=== PATIENT | male | born 1975 | race Caucasian/White ===

== ENCOUNTER 2016-09-04 19:30 | Inpatient (IN) ==
[2016-09-04 19:40] VITALS: BMI 43.2
[2016-09-04] MEDS ORDERED: XOPENEX 1.25 MG NEB STA (19:51)
[2016-09-04] MEDS ORDERED: DUONEB NEB STA (19:51)
[2016-09-04] MEDS ORDERED: DECADRON 4 MG/ML SDV IM STA (19:51)
[2016-09-04 20:06] LABS: BASOPHILS % (AUTO) 0.1 % (0.0-3.0); HEMATOCRIT 38.3 % (42.0-52.0); HEMOGLOBIN 13.4 g/dl (14.0-18.0); IMMATURE GRANULOCYTE % (AUTO) 0.6 % (0.0-5.0); LYMPHOCYTES # (AUTO) 2.1 K/uL (0.60-3.4); LYMPHOCYTES % (AUTO) 25.2 (10.0-50.0); MEAN CORPUSCULAR HEMOGLOBIN 30.5 pg (27.0-31.0); MEAN CORPUSCULAR VOLUME 87.2 fl (80.0-94.0); MONOCYTES # (AUTO) 0.7 K/uL (0.4-2.0); MONOCYTES % (AUTO) 8.1 (0-10); NEUTROPHILS # (AUTO) 5.5 K/ul (2.0-6.9); PLATELET COUNT 179 10^3/uL (140-440); RED BLOOD COUNT 4.39 10^6/ul (4.70-6.10); WHITE BLOOD COUNT 8.28 K/ul (4.2-10.2)
[2016-09-04 20:17] LABS: ABG BASE EXCESS 0 (-2.0-2.0); ABG HCO3 23.3 (22.0-26.0); ABG PCO2 30.3 mmHg (35-45); ABG PH 7.494 (7.35-7.45); ABG TCO2 24 (22.0-28.0)
[2016-09-04 20:21] LABS: FLU INTERNAL QC INTERNAL QC VALID; RAPID FLU A NEGATIVE (NEGATIVE)
[2016-09-04 20:22] LABS: RAPID FLU B NEGATIVE (NEGATIVE)
[2016-09-04 20:23] LABS: ALBUMIN 3.2 g/dL (3.4-5.0); ALBUMIN/GLOBULIN RATIO 0.78; ANION GAP 14.7; BILIRUBIN,TOTAL 0.72 mg/dL (0.00-1.20); BUN/CREATININE RATIO 6.99; CALCIUM 8.9 mg/dL (8.2-10.2); CREATININE 1.43 mg/dL (0.60-1.10); POTASSIUM 3.7 mmol/L (3.5-5.1); TOTAL PROTEIN 7.3 g/dL (6.4-8.2)
--- NOTE | 2016-09-04 21:00 | CT ---
Exam: CT of the chest without contrast History: Cough Technique: [address] of the chest without intravascular contrast FINDINGS: Lung windows show bilateral multilobar patchy consolidative opacities. There is no pleur al fluid. Mediastinal lymph node abundance with borderline enlargement measuring up to 1 cm short a xis. Trace atherosclerotic calcification of the aorta. No acute findings of the chest wall. No ac fili findings of the upper abdomen. Impression: 1. Bilateral multilobar consolidative opacities favoring multilobar pneumonia. New finding compare d with chest radiograph 08/27/2016.
[2016-09-04] MEDS ORDERED: ROCEPHIN 1 GM in SODIUM CHLORIDE 50 ML IV STA (21:04)
--- NOTE | 2016-09-04 21:08 | ED.PDOC ---
General ED Provider: Dr. HOWARD MOSCOSO-ER Chief Complaint: Shortness of Air Stated Complaint: imi coughing up yellow stuff---i have copd Time Seen by Physician: 19:35 Mode of Arrival: Walk-In Information Source: Patient Exam Limitations: No limitations Nursing and Triage Documentation Reviewed and Agree: Yes Respiratory Complaint Exam - Respiratory Complaint/Exam Onset/Duration: one week Symptoms Are: Still present Timing: Constant Initial Severity: Mild Current Severity: Mild Location: Chest Character: Reports: Productive cough Aggravating: Reports: URI Alleviating: Reports: Bronchodilators Associated Signs and Symptoms: Reports: Fever, URI. Denies: Rapid breathing, Dyspnea, Chills, Chest pain, Pleuritic chest pain, Wheezing, Hemoptysis, Dizziness, Calf pain, Calf swelling, Edema, Nasal congestion, Hoarseness, Sinus discomfort, Vomiting, Sore throat, Weight loss, Decreased oral intake, Increased thirst, Increased appetite, Increased urination History of Healthcare-Acquired Pneumonia: No Pulmonary Embolism Risk Factors: None Pseudomonas Risk Factors: Reports: Chronic Lung Disease Tuberculosis Risk Factors: Reports: None Status Asthmaticus Risk Factors: Reports: None Home Oxygen Use: No Recent Stress Test: No Recent Echo/LV Function: No Current Asthma Medication Use: No Respiratory Distress: None Inadequate Respiratory Effort: No Dysphagia Present: No Stridor Present: No JVD Present: No Accessory Muscle Use: No Retractions: Not Present Diminished Breath Sounds: No Sinus Tenderness: None Grunting Respirations: No Kussmaul Respirations: No Differential Diagnoses: COPD Exacerbation, Pneumonia, Bronchitis Non-Traumatic Chest Pain Syncope: EKG Performed Review of Systems - Review Of Systems Constitutional: Reports: Fever Eyes: Reports: No symptoms Ears, Nose, Mouth, Throat: Reports: No symptoms Respiratory: Reports: Cough, Short of air Cardiac: Reports: No symptoms GI: Reports: No symptoms : Reports: No symptoms Musculoskeletal: Reports: No symptoms Skin: Reports: No symptoms Neurological: Reports: No symptoms Endocrine: Reports: No symptoms Hematologic/Lymphatic: Reports: No symptoms All Other Systems: Reviewed and Negative Past Medical History - Past Medical History Endocrine: Reports: Dyslipidemia Cardiovascular: Reports: Hypertension Respiratory: Reports: COPD Hematological: Reports: None Gastrointestinal: Reports: Other (ibs) Genitourinary: Reports: None Neuro/Psych: Reports: Other Musculoskeletal: Reports: Other Cancer: Reports: None Other Pertinent Past Medical History: htn chol copd ibs psych meds - Surgical History General Surgical History: Reports: None - Family History Family History: Reports: Unknown - Social History Smoking Status: Current every day smoker, Light tobacco smoker Hx Substance Use: No Alcohol Screening: None Lives: With family - Immunizations Tetanus Shot up to Date: Yes Physical Exam - Physical Exam Appearance: Well-appearing, No pain distress, Well-nourished Eyes: MAYCO, EOMI, Conjunctiva clear ENT: Ears normal, Nose normal, Oropharynx normal Neck: Supple Respiratory: Crackles, Rhonchi Cardiovascular: RRR, Pulses normal, No rub, No murmur GI/: Soft, Nontender, No masses, Bowel sounds normal, No Organomegaly Musculoskeletal: Normal strength, ROM intact, No edema, No calf tenderness Skin: Warm, Dry, Normal color Neurological: Sensation intact, Motor intact, Reflexes intact, Cranial nerves intact, Alert, Oriented Psychiatric: Affect appropriate Interpretation - Radiology Interpretation Radiology Interpretation By: Radiologist Radiology Results: Positive Exam Interpreted: CT Scan - EKG Interpretation Time of EKG #1: 21:09 Rate: Tachy Rhythm: Sinus Ectopy: None [place]: NL ST Segment: Normal Physician Notification - Case Discussed Physician Notified: dr [email or web address] Time of Notification: 21:09 Critical Care Note - Critical Care Note Total Time (mins): 0 Course - Course Hematology/Chemistry: 09/04/16 20:00 09/04/16 20:00 Orders, Labs, Meds: Lab Review 09/04/16 09/04/16 09/04/16 19:50 19:53 20:00 WBC 8.28 RBC 4.39 L Hgb 13.4 L Hct 38.3 L MCV 87.2 MCH 30.5 MCHC 35.0 RDW Coeff of Angelita 12.2 Plt Count 179 Immature Gran % (Auto) 0.6 Neut % (Auto) 66.0 Lymph % (Auto) 25.2 [place] % (Auto) 8.1 Eos % (Auto) 0.0 Baso % (Auto) 0.1 Immature Gran # (Auto) 0.1 Neut # 5.5 Lymph # 2.1 [place] # 0.7 Eos # 0.0 Baso # 0.0 D-Dimer 1.31 Puncture Site Lb O2 Saturation 93.0 L ABG pH 7.494 H ABG pCO2 30.3 L ABG pO2 61.0 L ABG HCO3 23.3 ABG Total CO2 24 ABG Base Excess 0 Jaspal Test + FiO2 % 21.0 Sodium 132 L Potassium 3.7 Chloride 98 Carbon Dioxide 23 Anion Gap 14.7 BUN 10 Creatinine 1.43 H Estimated GFR (MDRD) 55.00 BUN/Creatinine Ratio 6.99 Glucose 101 H Calcium 8.9 Total Bilirubin 0.72 AST 285 H ALT 60 Alkaline Phosphatase 46 L B-Natriuretic Peptide < 10 Total Protein 7.3 Albumin 3.2 L Globulin 4.1 Albumin/Globulin Ratio 0.78 Influenza A (Rapid) Negative Influenza B (Rapid) Negative Orders Category Date Time Status ABG DRAW REQUEST Stat CARDIO 09/04/16 19:50 Ordered EKG-(ED ONLY) Stat CARDIO 09/04/16 19:50 Ordered NEBULIZER TREATMENT Stat CARDIO 09/04/16 19:51 Ordered IV [ED IV/MEDIPORT/POWERPORT] .ONCE EMERGENCY 09/04/16 21:04 Active ABG Stat LAB 09/04/16 19:50 Completed BLOOD CULTURE Stat LAB 09/04/16 21:03 Ordered BNP [B-TYPE NATRIURETIC PEPTIDE] Stat LAB 09/04/16 20:00 Completed CBC W/ AUTO DIFF Stat LAB 09/04/16 20:00 Completed COMPREHENSIVE METABOLIC PANEL Stat LAB 09/04/16 20:00 Completed D-DIMER Stat LAB 09/04/16 20:00 Completed MOLECULAR GROUP A STREP Stat LAB 09/04/16 19:53 Results RAPID FLU A/B Stat LAB 09/04/16 19:53 Completed STREP SCREEN Stat LAB 09/04/16 19:53 Results 0.9 % Sodium Chloride [Saline Flush] MEDS 09/04/16 21:04 Ordered 1 syr IVF PRN PRN Ceftriaxone Sodium [Rocephin] 1 gm MEDS 09/04/16 21:04 Active 0.9 % Sodium Chloride [Sodium Chloride] 50 ml IV ONCE Dexamethasone 4 mg/ml Inj [Decadron 4 mg/ml Sdv] MEDS 09/04/16 19:51 Discontinued 8 mg IM ONCE STA Ipratropium/Albuterol Neb [Duoneb] MEDS 09/04/16 19:51 Discontinued 1 vial NEB ONCE STA Levalbuterol HCl [Xopenex 1.25 mg] MEDS 09/04/16 19:51 Discontinued 1 vial NEB ONCE STA CT CHEST W/O CONTRAST Stat RADS 09/04/16 19:51 Completed Medications Generic Name Dose Route Start Last Admin Trade Name Freq PRN Reason Stop Dose Admin Ceftriaxone Sodium 1 gm/ 50 mls @ 75 mls/hr 09/04/16 21:04 Sodium Chloride IV 09/04/16 21:43 ONCE STA Sodium Chloride 1 syr 09/04/16 21:04 Saline Flush IVF PRN PRN To flush IV Discontinued Medications Generic Name Dose Route Start Last Admin Trade Name Freq PRN Reason Stop Dose Admin Albuterol/Ipratropium 1 vial 09/04/16 19:51 09/04/16 20:18 Duoneb NEB 09/04/16 19:52 1 vial ONCE STA Administration Dexamethasone Sodium Phosphate 8 mg 09/04/16 19:51 09/04/16 19:56 Decadron 4 Mg/Ml Sdv IM 09/04/16 19:52 8 mg ONCE STA Administration Levalbuterol HCl 1 vial 09/04/16 19:51 09/04/16 20:06 Xopenex 1.25 Mg NEB 09/04/16 19:52 1 vial ONCE STA Administration Vital Signs: Temp Pulse Resp BP Pulse Ox 09/04/16 19:30 99.7 F H 119 H 22 102/63 90 L Departure - Departure Time of Disposition: 21:09 Disposition: ADMITTED INPATIENT Discharge Problem: Pneumonia Qualifiers: Pneumonia type: due to unspecified organism Laterality: bilateral Lung location : unspecified part of lung Qualifier Code: (J18.9) Pneumonia, unspecified organism Instructions: Community Acquired Pneumonia (ED) Condition: Fair Pt referred to PMD for follow-up: Yes Allergies/Adverse Reactions: Allergies No Known Allergies Allergy (Verified 09/04/16 19:36) Home Medications: Ambulatory Orders Aspirin [Aspirin EC] 81 mg PO DAILYWM 02/08/14 Trazodone HCl 50 mg PO BEDTIME 02/08/14 Docusate Sodium [Doc-Q-Lace] 100 mg PO BID 02/13/14 Multi Vitamin Daily 1 each PO DAILY 05/01/15 Vitamin B Complex [B Complex] 1 each PO DAILY 05/01/15 Atarax 25 mg PO BID #60 02/05/16 Cogentin 1 mg PO BID #60 02/05/16 Trazodone HCl 100 mg PO BEDTIME #30 02/05/16 Escitalopram Oxalate [Lexapro] 10 mg PO BEDTIME #30 07/22/16 Haloperidol 5 mg PO BEDTIME #30 16 Paliperidone [Invega] 6 mg PO DAILY #60 07/22/16 Disposition Discussed With: Patient, Family
[2016-09-04] MEDS ORDERED: TYLENOL PO PRN (21:10)
[2016-09-04] MEDS ORDERED: ROCEPHIN ONE (21:19)
[2016-09-04] MEDS: SODIUM CHLORIDE 1,000 ML IV SCH (21:27)
[2016-09-04] MEDS ORDERED: DESYREL PO STA (23:01)
[2016-09-04] MEDS ORDERED: CRESTOR PO STA (23:05)
[2016-09-04] MEDS ORDERED: LEXAPRO PO STA (23:06)
[2016-09-04] MEDS ORDERED: ZANTAC PO STA (23:07)
[2016-09-04] MEDS ORDERED: ATARAX PO STA (23:08)
[2016-09-04] MEDS ORDERED: COGENTIN PO STA (23:08)
[2016-09-04] MEDS ORDERED: HALDOL PO STA (23:09)
[2016-09-04] MEDS ORDERED: ALBUTEROL 0.083% NEB NEB PRN (23:23)
[2016-09-05] MEDS ORDERED: DUONEB NEB SCH
[2016-09-05] MEDS: DUONEB NEB SCH ×6 (02:14→22:35)
[2016-09-05 06:39] LABS: BASOPHILS % (AUTO) 0.2 % (0.0-3.0); HEMATOCRIT 37.4 % (42.0-52.0); HEMOGLOBIN 12.9 g/dl (14.0-18.0); IMMATURE GRANULOCYTE % (AUTO) 0.9 % (0.0-5.0); LYMPHOCYTES # (AUTO) 1.3 K/uL (0.60-3.4); LYMPHOCYTES % (AUTO) 22.3 (10.0-50.0); MEAN CORPUSCULAR HEMOGLOBIN 29.9 pg (27.0-31.0); MEAN CORPUSCULAR HGB CONC 34.5 (31.8-35.4); MEAN CORPUSCULAR VOLUME 86.8 fl (80.0-94.0); MONOCYTES # (AUTO) 0.2 K/uL (0.4-2.0); NEUTROPHILS # (AUTO) 4.2 K/ul (2.0-6.9); NEUTROPHILS % (AUTO) 72.6; PLATELET COUNT 172 10^3/uL (140-440); RED BLOOD COUNT 4.31 10^6/ul (4.70-6.10); WHITE BLOOD COUNT 5.79 K/ul (4.2-10.2)
[2016-09-05 06:59] LABS: ALBUMIN/GLOBULIN RATIO 0.71; ANION GAP 15.6; BILIRUBIN,TOTAL 0.61 mg/dL (0.00-1.20); BUN/CREATININE RATIO 10.92; CREATININE 1.19 mg/dL (0.60-1.10); POTASSIUM 3.6 mmol/L (3.5-5.1); TOTAL PROTEIN 7.2 g/dL (6.4-8.2)
[2016-09-05] MEDS: ASPIRIN EC PO SCH (08:55)
[2016-09-05] MEDS ORDERED: BENICAR PO ONE (09:00)
[2016-09-05] MEDS ORDERED: ATARAX 25 MG PO SCH (09:00)
[2016-09-05] MEDS ORDERED: NON-FORMULARY MEDICATION (Ranitidine Hcl [Zantac] 300 MG) PO SCH ×22 (09:00)
[2016-09-05] MEDS ORDERED: MULTI VITAMIN DAILY PO SCH (09:00)
[2016-09-05] MEDS ORDERED: COGENTIN 1 MG PO SCH (09:00)
[2016-09-05] MEDS: MULTIVITAMIN PO SCH (09:32)
[2016-09-05] MEDS: BALANCED B-100 PO SCH (09:33)
[2016-09-05] MEDS: ATARAX PO SCH ×2 (09:33→21:51)
[2016-09-05] MEDS: COGENTIN PO SCH ×2 (09:33→21:48)
[2016-09-05] MEDS: COLACE PO SCH ×2 (09:33→21:47)
[2016-09-05] MEDS: SINGULAIR PO SCH (09:33)
[2016-09-05] MEDS: LOVENOX SUBCUT SCH (09:34)
[2016-09-05] MEDS: MIRALAX PO SCH (09:34)
[2016-09-05] MEDS: PALIPERIDONE 6 MG PO SCH (09:35)
[2016-09-05] MEDS: ZITHROMAX 500 MG in SODIUM CHLORIDE 250 ML IV SCH (09:41)
[2016-09-05] MEDS: OLMESARTAN MEDOXOMIL 5 MG PO SCH (09:42)
[2016-09-05] MEDS: FLONASE NAS SCH (09:46)
[2016-09-05] MEDS: SYMBICORT 160-4.5 MCG INHALER IH SCH ×2 (09:47→21:43)
[2016-09-05] MEDS: ZANTAC PO SCH ×2 (09:48→21:49)
[2016-09-05] MEDS: SOLU-MEDROL 40 MG IVP SCH ×2 (09:55→21:44)
[2016-09-05] MEDS: SODIUM CHLORIDE 1,000 ML IV SCH ×2 (19:02→19:03)
[2016-09-05] MEDS ORDERED: HALOPERIDOL 5 MG PO SCH ×2 (21:00)
[2016-09-05] MEDS ORDERED: [UNRECOGNIZED DRUG - OTHER] PO SCH ×22 (21:00)
[2016-09-05] MEDS ORDERED: NON-FORMULARY MEDICATION (Trazodone Hcl [Trazodone Hcl] 100 MG) PO SCH ×22 (21:00)
[2016-09-05] MEDS ORDERED: FATTY ACIDS PO SCH ×22 (21:00)
[2016-09-05] MEDS ORDERED: NON-FORMULARY MEDICATION (Trazodone Hcl [Trazodone Hcl] 50 MG) PO SCH ×22 (21:00)
[2016-09-05] MEDS ORDERED: NON-FORMULARY MEDICATION (Rosuvastatin Calcium [Crestor] 20 MG) PO SCH ×22 (21:00)
[2016-09-05] MEDS ORDERED: HALDOL PO SCH (21:00)
[2016-09-05] MEDS ORDERED: FISH OIL PO SCH ×22 (21:00)
[2016-09-05] MEDS ORDERED: OMEGA PO SCH ×22 (21:00)
[2016-09-05] MEDS: CRESTOR PO SCH (21:46)
[2016-09-05] MEDS: DESYREL PO SCH (21:47)
[2016-09-05] MEDS: LEXAPRO PO SCH (21:49)
[2016-09-05] MEDS: ROCEPHIN 1 GM in SODIUM CHLORIDE 50 ML IV SCH (21:55)
[2016-09-06] MEDS: DUONEB NEB SCH ×6 (02:38→21:07)
[2016-09-06 04:45] LABS: HEMATOCRIT 38.2 % (42.0-52.0); HEMOGLOBIN 13.3 g/dl (14.0-18.0); MEAN CORPUSCULAR HEMOGLOBIN 30.2 pg (27.0-31.0); MEAN CORPUSCULAR HGB CONC 34.8 (31.8-35.4); MEAN CORPUSCULAR VOLUME 86.6 fl (80.0-94.0); PLATELET COUNT 215 10^3/uL (140-440); RED BLOOD COUNT 4.41 10^6/ul (4.70-6.10); WHITE BLOOD COUNT 11.45 K/ul (4.2-10.2)
[2016-09-06 05:07] LABS: ANISOCYTOSIS NOT PRESENT (NOT PRESENT)
[2016-09-06 05:09] LABS: ALBUMIN 3.1 g/dL (3.4-5.0); ALBUMIN/GLOBULIN RATIO 0.67; BILIRUBIN,TOTAL 0.4 mg/dL (0.00-1.20); BUN/CREATININE RATIO 14.73; CALCIUM 9.6 mg/dL (8.2-10.2); CREATININE 0.95 mg/dL (0.60-1.10); TOTAL PROTEIN 7.7 g/dL (6.4-8.2)
[2016-09-06] MEDS: ZITHROMAX 500 MG in SODIUM CHLORIDE 250 ML IV SCH (08:44)
[2016-09-06] MEDS: SYMBICORT 160-4.5 MCG INHALER IH SCH ×2 (08:44→20:49)
[2016-09-06] MEDS: MIRALAX PO SCH (08:45)
[2016-09-06] MEDS: OMEGA-3 FISH OIL PO SCH ×2 (08:45→20:50)
[2016-09-06] MEDS: LOVENOX SUBCUT SCH (08:46)
[2016-09-06] MEDS: PALIPERIDONE 6 MG PO SCH (08:47)
[2016-09-06] MEDS: ASPIRIN EC PO SCH (08:48)
[2016-09-06] MEDS: OLMESARTAN MEDOXOMIL 5 MG PO SCH (08:48)
[2016-09-06] MEDS: SINGULAIR PO SCH (08:49)
[2016-09-06] MEDS: COGENTIN PO SCH ×2 (08:50→20:50)
[2016-09-06] MEDS: MULTIVITAMIN PO SCH (08:50)
[2016-09-06] MEDS: BALANCED B-100 PO SCH (08:51)
[2016-09-06] MEDS: COLACE PO SCH ×2 (08:51→20:50)
[2016-09-06] MEDS: ZANTAC PO SCH ×2 (08:52→20:50)
[2016-09-06] MEDS: ATARAX PO SCH ×2 (08:53→20:51)
[2016-09-06] MEDS: FLONASE NAS SCH (08:55)
[2016-09-06] MEDS: SOLU-MEDROL 40 MG IVP SCH ×2 (09:24→20:50)
[2016-09-06] MEDS: TUSSIONEX PO SCH ×2 (10:31→20:53)
[2016-09-06] MEDS: SODIUM CHLORIDE 1,000 ML IV SCH (17:09)
[2016-09-06] MEDS: HALOPERIDOL 5 MG PO SCH (20:49)
[2016-09-06] MEDS: ROCEPHIN 1 GM in SODIUM CHLORIDE 50 ML IV SCH (20:49)
[2016-09-06] MEDS: DESYREL PO SCH (20:50)
[2016-09-06] MEDS: LEXAPRO PO SCH (20:50)
[2016-09-06] MEDS: CRESTOR PO SCH (20:50)
[2016-09-07] MEDS: DUONEB NEB SCH ×5 (01:14→17:38)
[2016-09-07 04:50] LABS: HEMATOCRIT 34.5 % (42.0-52.0); MEAN CORPUSCULAR HEMOGLOBIN 30.4 pg (27.0-31.0); MEAN CORPUSCULAR HGB CONC 34.8 (31.8-35.4); MEAN CORPUSCULAR VOLUME 87.3 fl (80.0-94.0); PLATELET COUNT 226 10^3/uL (140-440); RED BLOOD COUNT 3.95 10^6/ul (4.70-6.10); WHITE BLOOD COUNT 11.46 K/ul (4.2-10.2)
[2016-09-07 05:04] LABS: ANISOCYTOSIS NOT PRESENT (NOT PRESENT)
[2016-09-07 05:11] LABS: ALBUMIN/GLOBULIN RATIO 0.77; ANION GAP 15.2; BILIRUBIN,TOTAL 0.29 mg/dL (0.00-1.20); BUN/CREATININE RATIO 13.48; CREATININE 0.89 mg/dL (0.60-1.10); POTASSIUM 4.2 mmol/L (3.5-5.1); TOTAL PROTEIN 6.9 g/dL (6.4-8.2)
[2016-09-07] MEDS: ASPIRIN EC PO SCH (07:59)
[2016-09-07] MEDS: SYMBICORT 160-4.5 MCG INHALER IH SCH ×2 (08:00→20:44)
[2016-09-07] MEDS: BALANCED B-100 PO SCH (08:00)
[2016-09-07] MEDS: FLONASE NAS SCH (08:00)
[2016-09-07] MEDS: COLACE PO SCH ×2 (08:00→20:46)
[2016-09-07] MEDS: TUSSIONEX PO SCH ×2 (08:00→20:47)
[2016-09-07] MEDS: ZANTAC PO SCH ×2 (08:00→20:46)
[2016-09-07] MEDS: MULTIVITAMIN PO SCH (08:01)
[2016-09-07] MEDS: COGENTIN PO SCH ×2 (08:01→20:45)
[2016-09-07] MEDS: ZITHROMAX 500 MG in SODIUM CHLORIDE 250 ML IV SCH (08:01)
[2016-09-07] MEDS: OMEGA-3 FISH OIL PO SCH ×2 (08:01→20:47)
[2016-09-07] MEDS: LOVENOX SUBCUT SCH (08:01)
[2016-09-07] MEDS: ATARAX PO SCH ×2 (08:01→20:47)
[2016-09-07] MEDS: MIRALAX PO SCH (08:01)
[2016-09-07] MEDS: SINGULAIR PO SCH (08:01)
[2016-09-07] MEDS: PALIPERIDONE 12 MG PO SCH (08:02)
[2016-09-07] MEDS: OLMESARTAN MEDOXOMIL 5 MG PO SCH (08:03)
[2016-09-07] MEDS: SOLU-MEDROL 40 MG IVP SCH ×2 (08:49→20:45)
[2016-09-07] MEDS ORDERED: ALBUTEROL 0.042% NEB NEB SCH (12:00)
[2016-09-07] MEDS: SODIUM CHLORIDE 1,000 ML IV SCH (14:54)
[2016-09-07] MEDS: HALOPERIDOL 5 MG PO SCH (20:45)
[2016-09-07] MEDS: DESYREL PO SCH (20:46)
[2016-09-07] MEDS: CRESTOR PO SCH (20:47)
[2016-09-07] MEDS: LEXAPRO PO SCH (20:50)
[2016-09-07] MEDS: ROCEPHIN 1 GM in SODIUM CHLORIDE 50 ML IV SCH (20:50)
[2016-09-08] MEDS: DUONEB NEB SCH ×5 (01:06→23:14)
[2016-09-08 05:24] LABS: HEMATOCRIT 36.7 % (42.0-52.0); HEMOGLOBIN 12.7 g/dl (14.0-18.0); MEAN CORPUSCULAR HEMOGLOBIN 30.5 pg (27.0-31.0); MEAN CORPUSCULAR HGB CONC 34.6 (31.8-35.4); MEAN CORPUSCULAR VOLUME 88.2 fl (80.0-94.0); PLATELET COUNT 266 10^3/uL (140-440); RED BLOOD COUNT 4.16 10^6/ul (4.70-6.10); WHITE BLOOD COUNT 9.35 K/ul (4.2-10.2)
[2016-09-08 05:57] LABS: ALBUMIN 3.2 g/dL (3.4-5.0); ALBUMIN/GLOBULIN RATIO 0.78; ANION GAP 12.8; BILIRUBIN,TOTAL 0.35 mg/dL (0.00-1.20); BUN/CREATININE RATIO 12.04; CALCIUM 9.5 mg/dL (8.2-10.2); CREATININE 0.83 mg/dL (0.60-1.10); POTASSIUM 4.8 mmol/L (3.5-5.1); TOTAL PROTEIN 7.3 g/dL (6.4-8.2)
[2016-09-08 06:00] LABS: ANISOCYTOSIS NOT PRESENT (NOT PRESENT)
[2016-09-08] MEDS: ATARAX PO SCH ×2 (08:55→20:35)
[2016-09-08] MEDS: BALANCED B-100 PO SCH (08:55)
[2016-09-08] MEDS: ASPIRIN EC PO SCH (08:55)
[2016-09-08] MEDS: FLONASE NAS SCH (08:56)
[2016-09-08] MEDS: LOVENOX SUBCUT SCH (08:56)
[2016-09-08] MEDS: COLACE PO SCH ×2 (08:56→20:33)
[2016-09-08] MEDS: COGENTIN PO SCH ×2 (08:56→20:32)
[2016-09-08] MEDS: MIRALAX PO SCH (08:57)
[2016-09-08] MEDS: OLMESARTAN MEDOXOMIL 5 MG PO SCH (08:57)
[2016-09-08] MEDS: OMEGA-3 FISH OIL PO SCH ×2 (08:57→20:31)
[2016-09-08] MEDS: MULTIVITAMIN PO SCH (08:57)
[2016-09-08] MEDS: SOLU-MEDROL 40 MG IVP SCH ×2 (08:58→20:37)
[2016-09-08] MEDS: ZANTAC PO SCH ×2 (08:58→20:32)
[2016-09-08] MEDS: SINGULAIR PO SCH (08:58)
[2016-09-08] MEDS: SYMBICORT 160-4.5 MCG INHALER IH SCH ×2 (09:37→20:31)
[2016-09-08] MEDS: PALIPERIDONE 12 MG PO SCH (09:37)
[2016-09-08] MEDS: ZITHROMAX 500 MG in SODIUM CHLORIDE 250 ML IV SCH (09:38)
[2016-09-08] MEDS: TUSSIONEX PO SCH ×2 (09:38→20:36)
[2016-09-08] MEDS: SODIUM CHLORIDE 1,000 ML IV SCH (11:00)
[2016-09-08] MEDS: LEXAPRO PO SCH (20:33)
[2016-09-08] MEDS: CRESTOR PO SCH (20:34)
[2016-09-08] MEDS: DESYREL PO SCH (20:34)
[2016-09-08] MEDS: HALOPERIDOL 5 MG PO SCH (20:36)
[2016-09-08] MEDS: ROCEPHIN 1 GM in SODIUM CHLORIDE 50 ML IV SCH (20:44)
[2016-09-09] MEDS: DUONEB NEB SCH ×2 (05:19→11:25)
[2016-09-09 06:19] LABS: BASOPHILS % (AUTO) 0.4 % (0.0-3.0); HEMATOCRIT 35.4 % (42.0-52.0); HEMOGLOBIN 12.1 g/dl (14.0-18.0); IMMATURE GRANULOCYTE % (AUTO) 1.4 % (0.0-5.0); LYMPHOCYTES # (AUTO) 2.1 K/uL (0.60-3.4); LYMPHOCYTES % (AUTO) 27.2 (10.0-50.0); MEAN CORPUSCULAR HGB CONC 34.2 (31.8-35.4); MEAN CORPUSCULAR VOLUME 87.6 fl (80.0-94.0); MONOCYTES # (AUTO) 0.3 K/uL (0.4-2.0); MONOCYTES % (AUTO) 4.3 (0-10); NEUTROPHILS # (AUTO) 5.2 K/ul (2.0-6.9); NEUTROPHILS % (AUTO) 66.7; PLATELET COUNT 264 10^3/uL (140-440); RED BLOOD COUNT 4.04 10^6/ul (4.70-6.10); WHITE BLOOD COUNT 7.86 K/ul (4.2-10.2)
[2016-09-09] MEDS: SODIUM CHLORIDE 1,000 ML IV SCH (07:23)
[2016-09-09 07:44] LABS: ALBUMIN 3.1 g/dL (3.4-5.0); ALBUMIN/GLOBULIN RATIO 0.89; ANION GAP 13.2; BILIRUBIN,TOTAL 0.33 mg/dL (0.00-1.20); BUN/CREATININE RATIO 12.04; CALCIUM 8.8 mg/dL (8.2-10.2); CREATININE 0.83 mg/dL (0.60-1.10); POTASSIUM 4.2 mmol/L (3.5-5.1); TOTAL PROTEIN 6.6 g/dL (6.4-8.2)
[2016-09-09] MEDS: OMEGA-3 FISH OIL PO SCH (08:01)
[2016-09-09] MEDS: MULTIVITAMIN PO SCH (08:01)
[2016-09-09] MEDS: ATARAX PO SCH (08:01)
[2016-09-09] MEDS: COGENTIN PO SCH (08:01)
[2016-09-09] MEDS: BALANCED B-100 PO SCH (08:01)
[2016-09-09] MEDS: ASPIRIN EC PO SCH (08:02)
[2016-09-09] MEDS: ZANTAC PO SCH (08:02)
[2016-09-09] MEDS: COLACE PO SCH (08:02)
[2016-09-09] MEDS: SINGULAIR PO SCH (08:02)
[2016-09-09] MEDS: MIRALAX PO SCH (08:03)
[2016-09-09] MEDS: LOVENOX SUBCUT SCH (08:03)
[2016-09-09] MEDS: TUSSIONEX PO SCH (08:03)
[2016-09-09] MEDS: FLONASE NAS SCH (08:03)
[2016-09-09] MEDS: ZITHROMAX 500 MG in SODIUM CHLORIDE 250 ML IV SCH (08:03)
[2016-09-09] MEDS: PALIPERIDONE 12 MG PO SCH (08:04)
[2016-09-09] MEDS: SYMBICORT 160-4.5 MCG INHALER IH SCH (08:05)
[2016-09-09] MEDS: OLMESARTAN MEDOXOMIL 5 MG PO SCH (08:05)
[2016-09-09] MEDS: SOLU-MEDROL 40 MG IVP SCH (09:15)
[2016-09-09 11:04] VITALS: BP 137/92; TEMP 97
--- NOTE | 2016-09-09 11:46 | CT ---
CT thorax without contrast History: Follow-up pneumonia. Comparison: 09/04/2016. TECHNIQUE: Serial axial images were obtained from the thoracic inlet through the diaphragms without IV or oral contrast. Coronal and sagittal reformatted imaging is submitted.. FINDINGS: There is interval improvement in still patchy bilateral multilobar are consolidative opacities. The large airways are patent. No evidence of pleural effusion or pneumothorax. Unchanged is a granulo ma at the left lung apex. Unchanged is a 3 mm with left lower lobe pulmonary nodule on image 48. A lso unchanged of multiple small 4 mm pulmonary nodules within the right upper lobe. These are likel y related to the consolidative process described above. The heart is of normal size without pericardial effusion. Small lymph nodes are again seen within th e mediastinum without evidence of pathologic enlargement. Limited visualization below the diaphragm shows no evidence of acute abnormality. There is evidence of prior granulomatous disease. Osseous and soft tissue structures show no acute abnormality. Impression: Interval significant improvement in still present bilateral patchy multilobar are areas of consolida tion. Findings are suggestive of multilobar pneumonia which is improving. Short-term follow-up is recommended with repeat CT in 6-8 weeks.
--- NOTE | 2016-10-14 08:17 | PN ---
DATE OF VISIT: 09/05/16 SUBJECTIVE: The patient is alert and oriented, not dyspneic or tachypneic and cyanosis. His temperature did spike 101.2 late in the evening of admission. The patient temperature remained normal until 5:12 pm. His pulse was 100, blood pressure 118 /72, respiratory rate 20 and oxygen saturation 91% at 2 liters. This patient is receiving Ceftriaxone 1 gram intervenously daily and Azithromycin 500mg IV daily. He is also receiving Solu-Medrol 40mg IV Q 12 hours. The patient's medications were continued except for Albuterol Sulfate nebulizer compressor, Albuterol Sulfate 2.5/3cc vial and Azithromycin tablet. This patient was given Dexamethasone 8mg MN at the emergency room. He also received DUO NEB nebulizer as well as Xopenex in the emergency room. The patient still has rales in both lung carballo. No significant wheezing. Heart is audible and regular and slightly tachycardiac. His appetite was good he consumed 100% of his meal. CBC remained to have a normal WBC 5,790, hgb and hct below normal, fasting blood sugar 157, AST 289, ALT still normal at 66. The AST in the emergency room was 285. MTDD
--- NOTE | 2016-10-14 08:23 | PN ---
DATE OF VISIT: 09/06/16 SUBJECTIVE: The patient's temperature had remained normal since yesterday and the vital signs at 5:56pm 09/06/16 showed a temperature of 97, pulse 94, blood pressure 127/73, respiratory rate 22 and oxygen saturation 94 at 2 liters and it was 95% before that. Lungs still has rales in both lung carballo but no wheezing. His appetite remained good. WBC did rise to 11,450 and probably secondary to steroid injection. Hgb and hct did rise slightly but still below normal. The fasting blood sugar remained elevated at 142 and the fasting insulin level is 67.1, markedly elevated. The AST is rising and now the ALT is slightly elevated at 97%. Alkaline phosphatase remained normal. The patient showed continued improvement. Rapid strep was negative, blood culture negative. MTDD
--- NOTE | 2016-10-14 08:37 | PN ---
DATE OF VISIT: 09/07/16 SUBJECTIVE: The patient today is alert, oriented and cooperative. He still has dyspnea on exertion. Cough is productive and intermittent. The patient's oximetry was noted on the nurses progress notes at 97% on room air. The patient did have a BM yesterday 09/06/16. His appetite was described as good and his abdomen was soft. The patient's vital signs at 6:00pm 09/07/16 showed a temperature of 97.6. His temperature had remained normal since the following day of admission. His pulse is 89, blood pressure 127/79, respiratory rate 19 and oxygen saturation 93% at room air. It was recorded earlier at 97%. He consumed 100% of meals. Lungs had diminished breath sounds still with rales but less. No wheezing. Heart is audible with good tones no long tachycardiac. Abdomen non- tender. No tenderness in the calf muscles. This patient is receiving Lovenox 40mg SUBCUT daily as prophylaxis. WBC is still elevated slightly 11,460 again probably secondary to steroid. Blood culture remained negative. The AST is still climbing slightly 377 from 375 yesterday. The ALT is now 128 from 97. General appearance is good. Discussion was carried with regards to cessation of smoking and probably pursuing regular exercise. The patient's seemed to be receptive to the idea. The patient had ambulated in the hallway without any difficulties. The shortness of breath with exertion is intermittent and it definitely has improved. MTDD
--- NOTE | 2016-10-14 09:03 | PN ---
DATE OF VISIT: 09/08/16 SUBJECTIVE: The patient today is alert and ambulatory without any distress and no cyanosis. Temperature at 6:00pm 09/08/16 it is recorded at 97.7, pulse 112, blood pressure 128/68, respiratory rate 18 and oxygen saturation 92 at room air. Lungs still has rales but less. The WBC has now returned to normal at 9,350, electrolytes remained normal, blood sugar now normal at 88mg %, AST is down to 332 and ALT is elevated to 152. The patient's rapid A and B were negative. The patient again has consumed 100% of his meals. His oral intake is good. We will obtain another chest CT tomorrow for followup and see if the probably has improved. The patient indeed clinically has improved and he had been afebrile since the second day of hospitalization. JANETT
--- NOTE | 2016-10-14 09:59 | HP ---
DATE OF ADMISSION: 09/04/17 CHIEF COMPLAINT: Shortness of breath with productive cough and purulent sputum. SOURCE OF HISTORY: The patient. HISTORY OF PRESENT ILLNESS: The patient had been experiencing cough and nasal congestion for some time and was given a round of Amoxicillin without any improvement. This patient was then re-prescribed another kind, Zithromax but again without any improvement prompting him to come to the emergency room. The patient was evaluated and was found to have bilateral pneumonic processes. This patient was then admitted. PAST PERSONAL HISTORY: The patient was diagnosis with having a lazy eye on the left side Pneumonia, 2014 on the right side IBS Dyslipidemia Schizophrenia The patient had previous appendectomy Ventilation tube insertion Exploratory laparotomy for hematuria FAMILY HISTORY: Brother is hypertensive Father Pulmonary fibrosis and liver cirrhosis Mother had hypertension, diabetes mellitus, CVA as well as depression SOCIAL HISTORY: The patient is single and smokes about one and a half packs of cigarettes per day. Denies any alcohol use or drug abuse. MEDICATIONS: Aspirin 81mg daily Trazodone 50mg at bedtime Colace 100mg twice a day Benicar 5mg PO daily Vitamin C complex one daily Multivitamin one daily Albuterol sulfate one puff 3-4 times a day Flonase two sprays to each nostril daily Singulair 10mg daily Cogentin 1 mg twice a day Atarax 25mg twice a day Trazodone 100mg at bedtime Zantac 300mg PO twice a day Miralax 17gm daily Nebulizer/ compressor Q 4-6 hours PRN Symbicort 160-4.5 two puffs twice a day [place] 3 fatty acids one twice a day Invega 6mg two tablets daily Lexapro 10mg at bedtime Albuterol Sulfate 2.5mg per 3cc for Nebulizing 4-6 hours PRN Crestor 20mg daily Azithromycin 250mg daily Haldol 5mg at bedtime ALLERGIES: No known drug allergies. REVIEW OF SYSTEMS: CONSTITUTIONAL: The patient claimed to have had fever, no chills and some fatigue. 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 VISUAL: Denies any Diplopia or blurred vision or transient loss of vision AUDITORY: No ringing, No pain, no drainage and no loss of hearing. RESPIRATORY: The patient has shortness of breath, productive cough with purulent sputum CARDIOVASCULAR: Denies any chest pain or chest tightness. GASTROINTESTINAL: The patient's appetite has decreased but no nausea or anorexia abdominal pain. He also denies any dysphagia. GENITOURINARY: Denies any pain frequency or urgency or urination. MUSCULOSKELETAL: No significant joint pain or muscular pains. ENDOCRINE: No polyuria or polydipsia INTEGUMENT: Denies any pleuritis or any rash. HEMATOLOGIC: No easy bruising and no history of prolonged bleeding. PSYCHIATRIC: The patient's affect appears to be ok but has some psychiatric problems including schizophrenia. He is on multiple medications. PHYSICAL EXAMINATION: GENERAL: The patient is a 41 year old male admitted to the hospital because of shortness of breath with productive purulent sputum and bilateral pneumonia per CT chest. VITAL SIGNS: Temperature 99.7 in the emergency room, pulse 119, blood pressure 103/63, respiratory rate 22 and oxygen saturation 90%. HEAD: Unremarkable FACE: Symmetrical and equal with no facial weakness. No remarkable tenderness to palpation in the frontal maxillary sinus areas. EYES: Pupils equal/reactive to light. Conjunctivae not pale. Sclerae not icteric. MOUTH: Unremarkable THROAT: No inflammation, tumors or exudate. NECK: No masses. No bruit. No tenderness. No rigidity. CHEST: Symmetrical and equal with good expansion with no remarkable tenderness to palpation and percussion. LUNGS: Breath sounds are heard in both sides, with no rales in both lung carballo. HEART: Audible and regular with good tones. Slightly tachycardiac. No murmurs. ABDOMEN: Protuberant, soft with no remarkable tenderness, bowel sounds are active. LOWER EXTREMITIES: Symmetrical equal with ankle and leg edema UPPER EXTREMITIES: Symmetrical and equal ASSESSMENT: 1. Bilateral pneumonitis 2. Elevated BMI 43+ 3. History of IBS 4. History of dyslipidemia 5. History of schizophrenia 6. History of hematuria 7. History of chronic tobacco use and abuse, persistent. MTDD
--- NOTE | 2016-10-14 10:20 | DS ---
DATE OF ADMISSION: 09/04/17 DATE OF DISCHARGE: 09/09/16 PATIENT IDENTIFICATION: The patient is a 41 year old white who was admitted at the hospital by the emergency room because cough, purulent sputum, fever and bilateral pneumonia by x-ray and rales in both lung carballo by physical examination. HOSPITAL COURSE: The patient's oxygen saturation was slow at 90% on admission and his atrial blood gasses 21 FiO2 showed an oxygen saturation of 93%, pH 7.494, pCO2 30.3 low , pO2 61, bicarbonate 23.3, total CO2 24. The excess is zero. The patient's initial GFR was 55 and the creatinine 1.43 with BUN of 10. The BUN had remained about the same but the GFR was improving and the day before discharge the EGFR was 103 with creatinine 0.83 and BUN 10. The blood sugar had returned to normal towards to the day before discharge. The AST and ALT were increasing but was declining towards the day of discharge for the AST but not the ALT. The alkaline phosphatase remained normal as well as the total bilirubin. The TSH was normal. The patient's problem continued to improve and remained afebrile beginning with the second day and his blood pressure more or less normalized and remained normal. His respiratory rate also was decreased and his exertion dyspnea has improved. This patient was continued on the Zithromax as well as the Rocephin and the rest of his medication except for what was mentioned initially being withheld. The patient on the day of discharge was alert, ambulatory with no pain in both lower extremities. His vital signs at 10:00 in the morning 09/09/16 recorded a temperature of 97, pulse 98, blood pressure 137/ 92, respiratory rate 20 and oxygen saturation 95%. Not sure wither the oxygen was involved although they had noted at 2 liters but previous to that this patient had not been using any oxygen. The repeat CT chest done 09/09/16 compared to 09/04/16 showed interval significant improvement on the bilateral pneumonia. LUNGS: Still has some rales but much less and no wheezing HEART: Audible with good tones FINAL DIAGNOSES: 1. Multilobar pneumonia, improving 2. Hepatitis, etiology undetermined 3. Markedly elevated BMI 43+ 4. History of schizophrenia 5. History of IBS 6. History of dyslipidemia 7. History of pneumonia, 2014 right 8. Chronic tobacco use and abuse persistent 1 1/2 packs of cigarettes per day PLAN: 1. Short-term followup is recommended 2. Repeat CT in 6-8 weeks 3. The patient was instructed to continue his previous medications. 4. He is given a new prescription Omnicef 300mg capsule every 12 hours as a continuation of the Rocephin. 5. The patient had received Zithromax during this admission. 6. The patient was instructed to followup with the [facility] in 5- 7 days and call for an appointment. 7. The patient may resume regular diet. 8. He was further instructed to discontinue the antibiotic if he has more than 3 bowel movements in one day. 9. He may return to the emergency room if he has exacerbation or recurrence of the shortness of breath. PROGNOSIS: Guarded MTDD
== END 2016-09-09 13:46 | disposition home or self-care (01) | DRG 194 ==
LOC: ED 19:30 → MEDSURG B 21:10
PROVIDERS: ADMIT General Practice; ATTEND General Practice
DX: J18.9 Pneumonia, unspecified organism (principal); B17.9 Acute viral hepatitis, unspecified; Z68.41 Body mass index [BMI] 40.0-44.9, adult; R06.02 Shortness of breath; I10 Essential (primary) hypertension; R50.9 Fever, unspecified; F17.210 Nicotine dependence, cigarettes, uncomplicated; R63.8 Other symptoms and signs concerning food and fluid intake; F20.9 Schizophrenia, unspecified; K58.9 Irritable bowel syndrome, unspecified; Z79.899 Other long term (current) drug therapy; Z86.19 Personal history of other infectious and parasitic diseases
CPT/HCPCS: 36415; 80053; 82803; 83525; 83880; 84443; 85007; 85025; 85379; 87040; 87651; 87804; 87880; 93005; 93010; 94640; 96374; 99223; 99232; 99239; 99284

== ENCOUNTER 2016-10-15 07:46 | Outpatient (CLI) ==
--- NOTE | 2016-10-15 08:33 | US ---
EXAM: Ultrasound abdomen limited right upper quadrant HISTORY: Fatty change of liver, not elsewhere classified COMPARISON: 06/15/2020 thickening TECHNIQUE: Limited ultrasound abdomen right upper quadrant was performed FINDINGS: Pancreas is poorly visualized secondary to bowel gas shadowing. Liver normal in size. Li lauro diffusely increased in echogenicity, consistent with hepatic steatosis, with focal fatty sparing near the gallbladder fossa. Main portal vein patent with normal direction of flow. Gallbladder fl uid-filled without gallbladder wall thickening, pericholecystic fluid, or shadowing gallstones. No biliary duct dilation with the common bile duct measuring 0.2 cm. Right kidney measures 9.2 cm in l ength without hydronephrosis. IMPRESSION: 1. Hepatic steatosis. 2. No cholelithiasis or cholecystitis
[2016-10-15 09:06] LABS: ALBUMIN 3.8 g/dL (3.4-5.0); ALBUMIN/GLOBULIN RATIO 1.27; ANION GAP 13.5; BILIRUBIN,TOTAL 1.42 mg/dL (0.00-1.20); BUN/CREATININE RATIO 6.31; CALCIUM 9.2 mg/dL (8.2-10.2); CHOL/HDL RATIO 5.6 (4.5-6.4); CREATININE 0.95 mg/dL (0.60-1.10); FERRITIN 184.39 ng/mL (21.81-274.66); POTASSIUM 3.5 mmol/L (3.5-5.1); TOTAL PROTEIN 6.8 g/dL (6.4-8.2)
[2016-10-17 07:30] LABS: GAMMA GLUTAMYL TRANSFERASE 24 IU/L (0-65)
== END 2016-10-15 07:47 | disposition home or self-care (01) ==
LOC: RAD 07:46
PROVIDERS: ATTEND Nurse Practitioner Family
DX: K76.0 Fatty (change of) liver, not elsewhere classified (principal); R94.5 Abnormal results of liver function studies; E78.5 Hyperlipidemia, unspecified; R73.9 Hyperglycemia, unspecified
CPT/HCPCS: 36415; 80053; 80061; 80074; 82607; 82728; 82977; 83036; 83540; 83550; 84443

== ENCOUNTER 2016-10-19 10:51 | Outpatient (CLI) ==
--- NOTE | 2016-10-19 13:43 | CT ---
Examination: Noncontrast helical CT examination of the chest. Comparison: 09/09/2016. Reason for study: Pneumonia. FINDINGS: The previously described patchy ground-glass and airspace opacities are not seen on today 's examination. The heart is not enlarged. No osteolytic or osteoblastic lesions. Old granulomato us disease is seen within the lung parenchyma. These spleen, gallbladder, and adrenal glands are un remarkable. Impression: Resolution of the previously described patchy ground-glass air space opacities. No new acute findings in the chest.
== END 2016-10-19 10:52 | disposition home or self-care (01) ==
LOC: RAD 10:51
PROVIDERS: ATTEND Nurse Practitioner Family
DX: J18.9 Pneumonia, unspecified organism (principal)

== ENCOUNTER 2017-01-21 11:35 | Outpatient (CLI) | payer OTHER | END 2017-01-21 11:36 | disposition home or self-care (01) | LOC: LAB 11:35 | PROVIDERS: ATTEND Nurse Practitioner Family | DX: L02.91 Cutaneous abscess, unspecified (principal); L03.311 Cellulitis of abdominal wall | CPT/HCPCS: 87070 ==

== ENCOUNTER 2017-04-18 07:24 | Outpatient (CLI) ==
[2017-04-18 07:51] LABS: BASOPHILS % (AUTO) 0.5 % (0.0-3.0); EOSINOPHILS # (AUTO) 0.2 K/ul (0.0-0.7); EOSINOPHILS % (AUTO) 2.1 % (0.0-7.0); HEMOGLOBIN 14.9 g/dl (14.0-18.0); IMMATURE GRANULOCYTE % (AUTO) 0.2 % (0.0-5.0); LYMPHOCYTES % (AUTO) 49.3 (10.0-50.0); MEAN CORPUSCULAR HEMOGLOBIN 31.7 pg (27.0-31.0); MEAN CORPUSCULAR HGB CONC 36.3 (31.8-35.4); MEAN CORPUSCULAR VOLUME 87.2 fl (80.0-94.0); MONOCYTES # (AUTO) 0.6 K/uL (0.4-2.0); MONOCYTES % (AUTO) 7.3 (0-10); NEUTROPHILS # (AUTO) 3.3 K/ul (2.0-6.9); NEUTROPHILS % (AUTO) 40.6; PLATELET COUNT 163 10^3/uL (140-440); WHITE BLOOD COUNT 8.06 K/ul (4.2-10.2)
[2017-04-18 08:09] LABS: ALBUMIN 3.7 g/dL (3.4-5.0); ALBUMIN/GLOBULIN RATIO 1.32; ANION GAP 12.7; BILIRUBIN,TOTAL 0.69 mg/dL (0.00-1.20); BUN/CREATININE RATIO 7.54; CALCIUM 9.2 mg/dL (8.2-10.2); CHOL/HDL RATIO 4.2 (4.5-6.4); CREATININE 1.06 mg/dL (0.60-1.10); POTASSIUM 3.7 mmol/L (3.5-5.1); TOTAL PROTEIN 6.5 g/dL (6.4-8.2)
--- NOTE | 2017-04-18 08:13 | US ---
Exam: Right upper quadrant abdominal ultrasound HISTORY: Fatty change of liver, not elsewhere classified Procedures: Transverse and longitudinal real time polo scale echograms and color Doppler images of the right upper abdominal quadrant were obtained. Comparison: 10/15/2016 at [facility] right upper quadrant abdominal ultrasound. FINDINGS: The pancreatic head and body appear within normal limits, the tail is obscured by bowel g as. The liver demonstrates mildly coarsened, increased echo texture with no intrahepatic mass or du ctal dilatation. Forward flow is noted in the portal vein. The gallbladder demonstrates no echogenic gallstones, gallbladder wall thickening or pericholecystic fluid. The common bile duct is not dila montez. The right kidney is 11.3 cm in length, without hydronephrosis. There is no free fluid in the right upper abdominal quadrant. IMPRESSION: No evidence of cholelithiasis or biliary ductal dilatation. Findings on this study do not meet ultrasound criteria for hepatic steatosis.
== END 2017-04-18 07:25 | disposition home or self-care (01) ==
LOC: RAD 07:24
PROVIDERS: ATTEND Nurse Practitioner Family
DX: E78.5 Hyperlipidemia, unspecified (principal); J44.9 Chronic obstructive pulmonary disease, unspecified; K76.0 Fatty (change of) liver, not elsewhere classified
CPT/HCPCS: 36415; 80053; 80061; 85025

== ENCOUNTER 2017-09-02 16:16 | Outpatient (CLI) ==
[2017-06-20 18:18] VITALS: BMI 44.6
== END 2017-09-02 16:17 | disposition home or self-care (01) ==
LOC: LAB 16:16
PROVIDERS: ATTEND Emergency Medicine
DX: J06.9 Acute upper respiratory infection, unspecified (principal)
CPT/HCPCS: 87651

== ENCOUNTER 2017-10-18 15:19 | Outpatient (CLI) ==
[2017-06-20 18:18] VITALS: BMI 44.6
== END 2017-10-18 15:20 | disposition home or self-care (01) ==
LOC: LAB 15:19
PROVIDERS: ATTEND Nurse Practitioner Family
DX: E78.5 Hyperlipidemia, unspecified (principal); J44.9 Chronic obstructive pulmonary disease, unspecified
CPT/HCPCS: 36415; 80053; 80061; 84443; 85025

== ENCOUNTER 2017-10-20 14:04 | Outpatient (CLI) | payer OTHER ==
[2017-06-20 18:18] VITALS: BMI 44.6
== END 2017-10-20 14:05 | disposition home or self-care (01) ==
LOC: LAB 14:04
PROVIDERS: ATTEND Nurse Practitioner Family
DX: R05 Cough (principal)
CPT/HCPCS: 87651; 87804

== ENCOUNTER 2018-04-26 13:09 | Outpatient (CLI) | payer OTHER ==
[2017-06-20 18:18] VITALS: BMI 44.6
== END 2018-04-26 13:10 | disposition home or self-care (01) ==
LOC: RHC-LAB 13:09
PROVIDERS: ATTEND Nurse Practitioner Family
DX: J44.9 Chronic obstructive pulmonary disease, unspecified (principal); E78.5 Hyperlipidemia, unspecified
CPT/HCPCS: 36415; 80053; 80061; 85025

== ENCOUNTER 2018-04-27 13:44 | Outpatient (CLI) ==
[2017-06-20 18:18] VITALS: BMI 44.6
--- NOTE | 2018-04-27 14:35 | CT ---
EXAM: CT of the abdomen pelvis without contrast History: Mid abdominal pain and tarry stool. Comparison: None available. Technique: Multiplanar CT images through the abdomen pelvis were obtained without the administration of IV contrast Findings: Lung bases are free of consolidation. No acute osseous abnormalities. No discrete gallstones identified by CT. Calcified granulomas are seen within the spleen. No focal liver lesions. No peripancreatic inflammation. Adrenal glands are unremarkable. No renal stones an d no hydronephrosis. No dilated loops of bowel. The appendix is not seen. There are no secondary s igns of appendicitis. No bladder wall thickening. Prostate is not enlarged. Scattered colonic stoo l. Colonic diverticulosis. No free air and no ascites. No inflammatory stranding. No pathological ly enlarged lymph nodes. Impression: No acute intra-abdominal or pelvic process. Colonic diverticulosis
== END 2018-04-27 13:45 | disposition home or self-care (01) ==
LOC: RAD 13:44
PROVIDERS: ATTEND Nurse Practitioner Family
DX: R10.9 Unspecified abdominal pain (principal); G89.29 Other chronic pain; R19.7 Diarrhea, unspecified

== ENCOUNTER 2018-07-22 17:10 | Observation (INO) | payer OTHER ==
[2018-07-22] MEDS ORDERED: DUONEB NEB STA (18:09)
--- NOTE | 2018-07-22 18:18 | ED.PDOC ---
General ED Provider: Dr. HOWARD ONOFRE Chief Complaint: Respiratory Complaint Stated Complaint: Shortness of Breath. Patient states he had an onset of sniffle and cough yesterday. Has progressed to hacky cough, nasal congestion, fever, sore throat. States he feels hot, then cold. He smokes 1 1/2 packs of cigarettes dly. Has Hx COPD. Chest et head hurts when he coughs. Time Seen by Physician: 17:00 Mode of Arrival: Walk-In Information Source: Patient Exam Limitations: No limitations Primary Care Provider: FLORY JANSEN Nursing and Triage Documentation Reviewed and Agree: Yes Does patient meet sepsis criteria?: Yes If yes, has appropriate treatment been initiated?: Yes System Inflammatory Response Syndrome: Temp 101F or Greater, Pulse >90 BPM Sepsis Protocol: For patient's 13 years and over: Temp is 96.8 and below OR 101 and greater Pulse >90 BPM Resp >20/minute Acutely Altered Mental Status Are patient's symptoms suggestive of a new infection, such as: -Pneumonia -Skin, Soft Tissue -Endocarditis -UTI -Bone, Joint Infection -Implantable Device -Acute Abdominal Infection -Wound Infection -Meningitis -Blood Stream Catheter Infection -Unknown Respiratory Complaint Exam - Shortness of Air Complaint/Exam Onset/Duration: 24 hr Symptoms Are: Still present Timing: Constant Initial Severity: Moderate Current Severity: Moderate Character: Reports: Dyspnea at rest, Dyspnea on exertion Aggravating: Reports: Deep breaths, Recumbent position, Smoke exposure, Weather Alleviating: Reports: Bronchodilators, Upright position Associated Signs and Symptoms: Reports: Cough, Wheezing, Fever, Chills, Nasal congestion, Rapid breathing, Labored breathing Related History: Reports: Similar episode History of Healthcare-Acquired Pneumonia: No Pulmonary Embolism Risk Factors: Reports: None Cardiac Risk Factors: Reports: Smoking Pseudomonas Risk Factors: Reports: None Tuberculosis Risk Factors: Reports: None Home Oxygen Use: No Recent Stress Test: No Recent Echo/LV Function: No Respiratory Distress: Mild Stridor Present: No Tracheal Deviation: No Subcutaneous Emphysema: No Accessory Muscle Use: No Retractions: Not Present Diminished Breath Sounds: Yes Unable to Speak Full Sentences: No Fatigue: Yes Ly's Sign Present: No Grunting Respirations: No Kussmaul Respirations: No Review of Systems - Review Of Systems Constitutional: Reports: No symptoms, Fever, Weakness Eyes: Reports: No symptoms Ears, Nose, Mouth, Throat: Reports: No symptoms Respiratory: Reports: Cough, Orthopnea, Short of air, Wheezing Cardiac: Reports: No symptoms GI: Reports: No symptoms : Reports: No symptoms Musculoskeletal: Reports: No symptoms Skin: Reports: No symptoms Neurological: Reports: No symptoms Endocrine: Reports: No symptoms Hematologic/Lymphatic: Reports: No symptoms All Other Systems: Reviewed and Negative Past Medical History - Past Medical History Previously Healthy: Yes Endocrine: Reports: None Cardiovascular: Reports: Hypertension Respiratory: Reports: None, COPD Hematological: Reports: None Gastrointestinal: Reports: None, Other Genitourinary: Reports: None Neuro/Psych: Reports: Other Musculoskeletal: Reports: Other Cancer: Reports: None Other Pertinent Past Medical History: htn chol copd ibs psych meds - Surgical History General Surgical History: Reports: Unknown - Family History Family History: Reports: Unknown - Social History Smoking Status: Current every day smoker, Heavy tobacco smoker Hx Substance Use: No Alcohol Screening: Occasionally Physical Exam - Physical Exam Appearance: Ill-appearing, Obese Ill-appearing: Moderate Pain Distress: None Eyes: MAYCO, EOMI, Conjunctiva clear ENT: Ears normal, Nose normal, Oropharynx normal Neck: Supple Respiratory: Airway patent, Breath sounds diminished, Rhonchi, Wheezes Cardiovascular: RRR, Pulses normal, No rub, No murmur GI/: Soft, Nontender, No masses, Bowel sounds normal, No Organomegaly Musculoskeletal: Normal strength, ROM intact, No edema, No calf tenderness Skin: Warm, Dry, Normal color Neurological: Sensation intact, Motor intact, Reflexes intact, Cranial nerves intact, Alert, Oriented Psychiatric: Affect appropriate, Mood appropriate Interpretation - Radiology Interpretation Radiology Interpretation By: ED Physician Radiology Results: No acute changes Re-Evaluation - Re-Evaluation Time of Re-Evaluation: 19:15 Status: Improved (less dyspnea but still wheezing) Vital Signs Stable: Yes Lungs: Other (diminished breath sounds) CV: RRR Physician Notification - Case Discussed Physician Notified: Dr Jansen Time of Notification: 20:00 (accept admit) Critical Care Note - Critical Care Note Total Time (mins): 60 Course - Course Hematology/Chemistry: 07/22/18 18:22 07/22/18 18:22 Orders, Labs, Meds: Lab Review 07/22/18 07/22/18 07/22/18 17:25 18:16 18:22 WBC 10.72 H RBC 4.38 L Hgb 13.8 L Hct 38.2 L MCV 87.2 MCH 31.5 H MCHC 36.1 H RDW Coeff of Angelita 13.2 Plt Count 149 Immature Gran % (Auto) 0.4 Neut % (Auto) 72.9 Lymph % (Auto) 18.2 [place] % (Auto) 7.6 Eos % (Auto) 0.7 Baso % (Auto) 0.2 Immature Gran # (Auto) 0.0 Neut # (Auto) 7.8 H Lymph # (Auto) 2.0 [place] # (Auto) 0.8 Eos # (Auto) 0.1 Baso # (Auto) 0.0 ESR 16 H Puncture Site Rb O2 Saturation 95.0 ABG pH 7.435 ABG pCO2 40.8 ABG pO2 76.0 L ABG HCO3 27.4 H ABG Total CO2 29 H ABG Base Excess 3 H FiO2 % 21.0 Sodium Potassium Chloride Carbon Dioxide Anion Gap BUN Creatinine Estimated GFR (MDRD) BUN/Creatinine Ratio Glucose Lactic Acid Calcium Total Bilirubin AST ALT Alkaline Phosphatase Total Protein Albumin Globulin Albumin/Globulin Ratio Procalcitonin Urine Color Urine Clarity Urine pH Ur Specific [place] Urine Protein Urine Glucose (UA) Urine Ketones Urine Blood Urine Nitrite Urine Bilirubin Urine Urobilinogen Ur Leukocyte Esterase Urine Opiates Screen Ur Oxycodone Screen Urine Methadone Screen Ur Propoxyphene Screen Ur Barbiturates Screen U Tricyclic Antidepress Ur Phencyclidine Scrn Ur Amphetamine Screen U Methamphetamines Scrn U Benzodiazepines Scrn Urine Cocaine Screen U Cannabinoids Screen Influ A Molecular Assay Negative by naat Influ B Molecular Assay Negative by naat 07/22/18 07/22/18 07/22/18 18:22 18:22 18:22 WBC RBC Hgb Hct MCV MCH MCHC RDW Coeff of Angelita Plt Count Immature Gran % (Auto) Neut % (Auto) Lymph % (Auto) [place] % (Auto) Eos % (Auto) Baso % (Auto) Immature Gran # (Auto) Neut # (Auto) Lymph # (Auto) [place] # (Auto) Eos # (Auto) Baso # (Auto) ESR Puncture Site O2 Saturation ABG pH ABG pCO2 ABG pO2 ABG HCO3 ABG Total CO2 ABG Base Excess FiO2 % Sodium 137.1 Potassium 3.80 Chloride 103.1 Carbon Dioxide 30.1 H Anion Gap 7.70 BUN 5.4 L Creatinine 0.94 Estimated GFR (MDRD) 88.00 BUN/Creatinine Ratio 5.74 Glucose 94.1 Lactic Acid 1.13 Calcium 9.29 Total Bilirubin 0.76 AST 53.6 ALT 36.6 Alkaline Phosphatase 63.5 Total Protein 7.05 Albumin 4.29 Globulin 2.76 Albumin/Globulin Ratio 1.55 Procalcitonin < 0.05 Urine Color Urine Clarity Urine pH Ur Specific [place] Urine Protein Urine Glucose (UA) Urine Ketones Urine Blood Urine Nitrite Urine Bilirubin Urine Urobilinogen Ur Leukocyte Esterase Urine Opiates Screen Ur Oxycodone Screen Urine Methadone Screen Ur Propoxyphene Screen Ur Barbiturates Screen U Tricyclic Antidepress Ur Phencyclidine Scrn Ur Amphetamine Screen U Methamphetamines Scrn U Benzodiazepines Scrn Urine Cocaine Screen U Cannabinoids Screen Influ A Molecular Assay Influ B Molecular Assay 07/22/18 07/22/18 18:32 18:32 WBC RBC Hgb Hct MCV MCH MCHC RDW Coeff of Angelita Plt Count Immature Gran % (Auto) Neut % (Auto) Lymph % (Auto) [place] % (Auto) Eos % (Auto) Baso % (Auto) Immature Gran # (Auto) Neut # (Auto) Lymph # (Auto) [place] # (Auto) Eos # (Auto) Baso # (Auto) ESR Puncture Site O2 Saturation ABG pH ABG pCO2 ABG pO2 ABG HCO3 ABG Total CO2 ABG Base Excess FiO2 % Sodium Potassium Chloride Carbon Dioxide Anion Gap BUN Creatinine Estimated GFR (MDRD) BUN/Creatinine Ratio Glucose Lactic Acid Calcium Total Bilirubin AST ALT Alkaline Phosphatase Total Protein Albumin Globulin Albumin/Globulin Ratio Procalcitonin Urine Color Yellow Urine Clarity Clear Urine pH 7.5 Ur Specific [place] 1.015 Urine Protein Negative Urine Glucose (UA) Negative Urine Ketones Negative Urine Blood Negative Urine Nitrite Negative Urine Bilirubin Negative Urine Urobilinogen 0.2 Ur Leukocyte Esterase Negative Urine Opiates Screen Positive Ur Oxycodone Screen Negative Urine Methadone Screen Negative Ur Propoxyphene Screen Negative Ur Barbiturates Screen Negative U Tricyclic Antidepress Negative Ur Phencyclidine Scrn Negative Ur Amphetamine Screen Negative U Methamphetamines Scrn Negative U Benzodiazepines Scrn Negative Urine Cocaine Screen Negative U Cannabinoids Screen Positive Influ A Molecular Assay Influ B Molecular Assay Orders Category Date Time Status ABG DRAW REQUEST Stat CARDIO 07/22/18 17:27 Completed NEBULIZER TREATMENT Stat CARDIO 07/22/18 18:11 Completed IV [ED IV/MEDIPORT/POWERPORT] .ONCE EMERGENCY 07/22/18 18:27 Active ABG Stat LAB 07/22/18 17:25 Completed BLOOD CULTURE (ED ONLY) Stat LAB 07/22/18 18:22 Received CBC W/ AUTO DIFF Stat LAB 07/22/18 18:22 Completed CMP [COMPREHENSIVE METABOLIC PANEL] Stat LAB 07/22/18 18:22 Completed ESR Stat LAB 07/22/18 18:22 Completed FLU A & B MOLECULAR [FLU A/B MOLECULAR] Stat LAB 07/22/18 18:16 Completed LACTIC ACID Stat LAB 07/22/18 18:22 Completed PROCALCITONIN Stat LAB 07/22/18 18:22 Completed RAPID STREP SCREEN [MOLECULAR GROUP A STREP] Stat LAB 07/22/18 18:16 Completed SPUTUM CULTURE Stat LAB 07/22/18 18:17 Uncollected UA [URINALYSIS C & S IF INDICATED] Stat LAB 07/22/18 18:32 Completed URINE DRUG SCREEN (RAPID FOR ED) [DRUG SCREEN, URINE, LAB 07/22/18 18:32 Completed RAPID] Stat 0.9 % Sodium Chloride [Saline Flush] MEDS 07/22/18 18:27 Ordered 1 syr IVF PRN PRN Acetaminophen [Tylenol] MEDS 07/22/18 19:13 Discontinued 650 mg PO ONCE STA Ipratropium/Albuterol Neb [Duoneb] MEDS 07/22/18 18:09 Discontinued 1 vial NEB ONCE STA Methylprednisolone Sod Succ/Pf [Solu-Medrol 125 mg] MEDS 07/22/18 19:01 Discontinued 125 mg .ROUTE .STK-MED ONE Methylprednisolone Sod Succ/Pf [Solu-Medrol 125 mg] MEDS 07/22/18 19:11 Discontinued 125 mg IVP ONCE STA Methylprednisolone Sod Succ/Pf [Solu-Medrol 125 mg] 125 MEDS 07/22/18 18:29 Discontinued mg 0.9 % Sodium Chloride [Sodium Chloride] 50 ml IV ONCE Sodium Chloride 0.9% [Sodium Chloride] 1,000 ml MEDS 07/22/18 18:27 Active IV BOLUS CHEST, 1V AP ONLY Stat RADS 07/22/18 17:25 Taken Medications Generic Name Dose Route Start Last Admin Trade Name Freq PRN Reason Stop Dose Admin Sodium Chloride 1,000 mls @ 500 mls/hr 07/22/18 18:27 07/22/18 19:05 Sodium Chloride IV 07/22/18 20:26 500 mls/hr BOLUS STA Administration Sodium Chloride 1 syr 07/22/18 18:27 07/22/18 19:05 Saline Flush IVF 1 syr PRN PRN Administration To flush IV Discontinued Medications Generic Name Dose Route Start Last Admin Trade Name Anali PRN Reason Stop Dose Admin Acetaminophen 650 mg 07/22/18 19:13 07/22/18 19:27 Tylenol PO 07/22/18 19:14 650 mg ONCE STA Administration Albuterol/Ipratropium 1 vial 07/22/18 18:09 07/22/18 18:37 Duoneb NEB 07/22/18 18:10 1 vial ONCE STA Administration Methylprednisolone Sodium 52 mls @ 100 mls/hr 07/22/18 18:29 07/22/18 19:05 Succinate 125 mg/ Sodium IV 07/22/18 19:01 Not Given Chloride ONCE ONE Methylprednisolone Sodium Succinate 125 mg 07/22/18 19:11 07/22/18 19:16 Solu-Medrol 125 Mg IVP 07/22/18 19:12 Not Given ONCE STA Vital Signs: Temp Pulse Resp BP Pulse Ox 07/22/18 17:10 101.0 F H 111 H 20 139/70 93 L Departure - Departure Time of Disposition: 20:15 Disposition: PLACED OBSERVATION Discharge Problem: COPD with exacerbation Condition: Fair Pt referred to PMD for follow-up: Yes (after discharge) IPMP verified?: No Allergies/Adverse Reactions: Allergies No Known Allergies Allergy (Verified 07/22/18 17:21) Home Medications: Ambulatory Orders Aspirin [Aspirin EC] 81 mg PO DAILYWM 02/08/14 Trazodone HCl 50 mg PO BEDTIME 02/08/14 Docusate Sodium [Doc-Q-Lace] 100 mg PO BID 02/13/14 Multi Vitamin Daily 1 each PO DAILY 05/01/15 Vitamin B Complex [B Complex] 1 each PO DAILY 05/01/15 Haloperidol 5 mg PO BEDTIME 09/05/16 Benztropine Mesylate 1 mg PO BID #60 10/28/16 Hydroxyzine HCl 25 mg PO TID #90 10/28/16 Haloperidol Lactate [Haloperidol] 5 mg IJ 02/27/18 Disposition Discussed With: Patient
[2018-07-22] MEDS ORDERED: SODIUM CHLORIDE 1,000 ML IV STA (18:27)
[2018-07-22] MEDS ORDERED: SOLU-MEDROL 125 MG 125 MG in SODIUM CHLORIDE 50 ML IV ONE (18:29)
[2018-07-22] MEDS ORDERED: SOLU-MEDROL 125 MG ONE (19:01)
[2018-07-22] MEDS ORDERED: SOLU-MEDROL 125 MG IVP STA (19:11)
[2018-07-22] MEDS ORDERED: TYLENOL PO STA (19:13)
[2018-07-22] MEDS ORDERED: ROCEPHIN 1 GM in SODIUM CHLORIDE 50 ML IV STA (20:03)
[2018-07-22] MEDS ORDERED: ROCEPHIN ONE (20:18)
[2018-07-22] MEDS ORDERED: DUONEB NEB PRN (20:18)
[2018-07-22] MEDS ORDERED: TYLENOL PO PRN (20:18)
[2018-07-22] MEDS ORDERED: LOVENOX SUBCUT SCH (20:30)
[2018-07-22 21:44] VITALS: BMI 48.2
[2018-07-22] MEDS ORDERED: DUONEB NEB ONE (22:26)
--- NOTE | 2018-07-22 22:37 | PCM ---
- Chief Complaint Chief Complaint: SOA, cough, URI, difficulty breathing. - History of Present Illness History of Present Illness: 43 yo WM presented to [facility] at 1700 as a walk in, seen by DR. Baca in the ER. The patient has been a long standing established patient of JASKARAN Whelan , saw JASKARAN Wheeler recently as a walk-in on 07/06/18 for URI/Cough/COPD exacerbation and treated with decadron PO, doxycycline hycalate and tessalon. Presented to ER today w/ SOA, repeat symptoms yesterday of sinus congestion, rhinorrhea and cough productive of increased sputum, increased MANDEL, nasal congestion, cough, sore throat. Chills, hot/cold. Smokes 1 1/2 ppd, discussed with JASKARAN Wheeler on 07/06/18 and he is not ready to quit. Chest pain diffusely with deep cough/inspiration, better with rest. He presented with temp of >101, SIRS criteria met based on his vitals. Chest pain at 5/10 with deep breath/ coughing. Sx in general worse with deep breathing, supine posture, smoking and with weather hot/cold changes. Wheezing is present, labored breathing is present, orthopnea. No home O2 regularly during day/night. Known history of Morbid Obesity, HTN, stable. Hyperlipidemia chronically last checked 04/2018 total 197, trigly 212, LDL 117. Anemia historically. Low b12 in 10/15/16 at 196. Not repeated. COPD, unstable with current exacerbation. Current labs reviewed WBC 10.72, hgb 13.8, plt 149. ESR mildly elevated at 16. White cell diff shows predominate neutrophilia. ABG here today normal 17:25. PH 7.435. PCO2 40.8, hypoxia po2 76, hc03 27.4, CO2 29. CMP Normal sodium, normal K+, normal CL, normal Cr 0.94. Remainder of CMP normal. Procalcitonin negative. Lactate 1.13 and negative. Ill appearing, obese male, moderately sick appearing in ER. Normal cardiac exam, diminished sounds, rhonci and wheezes. CXR personally reviewed and appears very white with problematic penetration, unable to visualize costophrenic angles, unable to visualize diaphragm and prominent vascular markings. Ayse midline. I contacted our radiology dept to see if they can get rads to look this over and see if we need AP/LAT as it is difficult to interpret. I was called at 1999. Flu was negative. Strep was negative. UDS + for opiates and cannabinoids. Methylpred given in ER, fluids given in ER. Temp 101.0, HR 111, BP stable 139/70, PO2 93%. PLACED into obs with COPD exacerbation to room 119-1. Home meds reviewed. Combivint listed. Patient has no regular psych provider as they continue to change providers locally. He notes he does smoke, a lot, within minutes of getting up. 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 Father early with pulm fibrosis. He does not think anyone has ever brought up alpha 1 testing or similar, he has never seen pulm despite his family history. He noted that he feels about the same as he did 07/06/18 and that he never got to 100%. He has been using nebs very rarely over last 48 hours 1-2x per day. Brother prominent pancreatic process. He has concerning history for CF, for alpha 1 antitrypsin deficiency and again he reports never seeing pulm. I would recommend to him that he sees pulm as outpatient to complete this w/u. He is calm, in bed, reported own history, full sentences, no distress. Morbid obesity, cannot lay flat. No recent travel. No changes in tobacco. - Review of Systems Constitutional: fever, chills, weakness, fatigue, loss of appetite Eyes: No: blurred vision, double-vision, discharge, itching, pain, redness, photophobia, other Ears: No: pain, bleeding, drainage, ringing, hearing loss, other Nose: congestion, discharge Throat: pain, swelling. No: voice change Mouth: No: bleeding, pain, swelling, other Respiratory: cough, shortness of air, wheeze, pain with breathing Cardiovascular: orthopnea. No: diaphoresis Gastrointestinal: nausea. No: abdominal pain, diarrhea Genitourinary: No: dysuria, hematuria, frequency, incontinence, flank pain, penile discharge, testicular pain, testicular swelling, other Neurological: headache (w/ cough), dizziness, speech difficulty Musculoskeletal: pain Skin: No: rash, pruritus, lacerations, wounds, bruising, other Immunology: No: hives, itching, frequent infections, difficulty healing, other Hematology: No: easy bruising, easy bleeding, swollen glands, other Endocrine: No: weight changes, cold intolerance, heat intolerance, excessive thirst, excessive hunger, polyuria, other Psychiatric: depression, anxiety, sleeplessness. No: hopelessness, suicidal, hallucinations, other Habits: tobacco use, substance use - Past Medical History Past Medical History: Depression/Anxiety, insomnia, HTN, morbid Obesity, Heavy tobacco, THC use, opiate use, Schizophrenia. - Past Surgical History Past Surgical History: Appendectomy, Exp Lap. - Allergies Allergies/Adverse Reactions: Allergies Allergy/AdvReac Type Severity Reaction Status Date / Time No Known Allergies Allergy Verified 07/22/18 17:21 - Medications Medications: Medications Generic Name Dose Route Start Last Admin Trade Name Freq PRN Reason Stop Dose Admin Acetaminophen 650 mg 07/22/18 20:18 Tylenol PO Q4H PRN pain or temp elevation Albuterol/Ipratropium 1 vial 07/22/18 20:18 Duoneb NEB RTQ6H PRN Wheezing Enoxaparin Sodium 40 mg 07/22/18 20:30 Lovenox SUBCUT DAILY [facility] Ceftriaxone Sodium 1 gm/ 50 mls @ 75 mls/hr 07/23/18 09:00 Sodium Chloride IV DAILY [facility] Methylprednisolone Sodium Succinate 125 mg 07/23/18 07:00 Solu-Medrol 125 Mg IVP Q8HR [facility] Sodium Chloride 1 syr 07/22/18 18:27 07/22/18 19:05 Saline Flush IVF 1 syr PRN PRN Administration To flush IV - Family History Past Family History: Mother CVA, Father pulmonary fibrosis age 59 onset 53. - Social History Past Social History: Heavy tobacco 1.5 ppd x 27 years. Started age 16. Not interested in quitting. Occasional ETOH. UDS positive today for THC and opiates. 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 - Vital Signs Temperature: 99.3 F Pulse Rate: 96 Respiratory Rate: 24 Blood Pressure: 139/70 O2 Sat by Pulse Oximetry: 93 - Body Composition Height: 5 ft 9 in Weight: 326 lb 15.128 oz Body Mass Index (BMI): 48.2 - Physical Examination HEENT: Constitutional: Appearance-Mild resp distress, Older than stated age. Orientation- Oriented x 3, alertGait- Unobserved Build and Nutrition-[MORBIDLY OBESE MALE] General- Patient is pleasant and cooperative with the interview and exam. Integumentary: General-Scattered acneiform lesions back. Deep sacral dimple. NO sores/no pressure lesions. Numerous Acrochordons around eyes, bilateral axilla. Head/Neck: Head- normocephalic and atraumatic. Neck- without visible/palpable lumps or pulsations. Palpation- No bony tenderness about head/neck along frontal, occipital, temporal, parietal, mastoid, jawline, zygoma, orbit or any other location. NO temporal artery tenderness. No TMJ tenderness. Neck Supple. Thyroid-No thyromegaly, no nodules Eye: Bilaterally PERRLA, EOMI. No discharge. Upper and lower eyelids are normal. Sclera/conjunctiva normal without discharge. Cornea is normal and clear. Lens is normal. Eyeball appears normal. No ciliary flushing, no conjunctival injection. ENMT: Pinna- normal without tenderness or erythema. External auditory canal Left- normal without erythema or discharge, no excessive cerumen. External auditory canal Right-normal without erythema or discharge, no excessive cerumen. TM left- [place]on/pearly, normal light reflex and anatomy TM Right- [place]/ pearly, normal light reflex and anatomy Hearing Assessment-normal to conversational speech. Nose and sinus- No sinus tenderness along frontal/ maxillary region. External appearance normal and midline. Nares- bilateral quiet airflow, no discharge. Nasal mucosa- No bleeding noted and no ulcerations observed. ErythematousTurbinates boggy. Lips- normal color, moist without cracks /lesions Oral Cavity/Palate- hard/soft palate intact without lesions, oral mucosa pink and moist. Dentition poor, missing teeth Tongue normal midline. Oropharynx- pharyngeal erythema, Uvula midline. + post nasal drip. Mild posterior exudate. Salivary glands- Non tender to palpation CHEST/LUNG: Inspection- Prominent chest wall, morbidly obese, distant sounds. Palpation- nontender sternum, ribline. No abnormal pulsations. Auscultation- Breath sounds diminished throughout all lung carballo. No active distress, no accessory muscles. Decreased/coarse tracheal sounds, bronchial sounds overlying sternum, Bronchovessicular sounds between scapulae posteriorly, vessicular breath sounds heard throughout periphery. Adventitious sounds- wheezes, rales, rhonchi. CARDIOVASCULAR: Palpation/Percussion- Unable to palpate through chest wall. Distant heart sounds. No appreciable murmur. Auscultation- Regular rate and rhythm. No murmur noted in sitting, supine positions. ABDOMEN: Inspection- Prominent central adiposity. Auscultation- Bowel sounds distant but sounded normal, no abdominal bruits. Palpation/Percussion- soft, non -tender, no rebound tenderness, no rigidity (guarding), no jar tenderness, no masses. Liver-no hepatomegaly, Spleen no splenomegaly, Hernias- none. Rectal not examined. Peripheral Vascular: Upper extremity Left- Normal temperature with pink nailbeds and no ulcerations. Upper extremity Right- Normal temperature with pink nailbeds and no ulcerations. Lower extremity- Normal temperature with pink nailbeds and no ulcerations. DP pulses 2+ bilaterally. Pedal hair intact. Normal capillary refill. Edema- No edema. Musculoskeletal: Generalized-No generalized swelling or edema of extremities, no digital clubbing or cyanosis, neurovascularly intact all four extremities. Upper extremity- Symmetrical posture. No visible deformity. Normal sensation along medial and lateral upper extremity proximally and distally. NO tenderness overlying shoulder, lateral/medial epicondyle. Seasonal Tax Preparer 5/5 and strength 5/5 bilateral UE. Elbow palpated, no tenderness overlying olecranon. Normal supination, pronation to active/passive ROM and to resisted rotation. Bicep insertion/tricep insertion appear normal without obvious pathology. Rotator cuff evaluated and intact. Normal wrist ROM bilaterally. Normal hand movement, intrinsic muscles of hands normal. No tenderness to palpation of hands/wrists/ elbows. Seasonal Tax Preparer 5/5 bilateral UE. Lower extremity- Hip: Not tender to palpation, no pain, no swelling, edema or erythema of surrounding tissue, normal strength and tone. Normal appearing hip ROM bilaterally without pain. Knee: Knee ROM normal. No tenderness overlying trochanters, no tenderness about patella, quad tendon, patellar tendon. No tenderness at tibial tuberosity. Ankle: normal ROM not tender to palpation along medial/lateral malleolus. Spine/Ribs- No deformities, masses or tenderness, no known fractures, normal strength, Normal ROM. Normal stability No tenderness along C/T/L spine. Normal appearing ROM about spine. Neurological: General- Moves all 4 extremities symmetrically. Symmetrical face and body posture. Cranial nerves- individually evaluated II-XII and intact. PERRLA, Normal EOMI, visual/special senses appear intact, Face is symmetrical and normal sensation/movement, normal tongue, normal strength/posture of neck musculature. Reflexes- intact with DTR 2+ patellar, Achilles, bicep, brachial, tricep. Ankle clonus normal with 2 beats. Strength- 5/5 bilateral UE and LE. Soft touch- intact bilateral UE and LE. Temperature sensation- intact bilateral UE and LE. Neuropsych: Oriented- Pleasant, alert, awake and oriented to Person, place, time. (AAOx3), Mood/affect- normal and congruent. Able to articulate well. Speech-Normal speech, normal rate, normal tone, normal use of language, volume and coherence. Thought content- Answered all questions easily, no odd behaviors tonight. normal with ability to perform basic computations and apply abstract thought/reason. Associations- intact, no SI/HI, no hallucinations, delusions, obsessions. Judgment/insight- Appropriate. Memory-Recall intact, remote and recent memory intact. Knowledge- Age appropriate fund of knowledge, concentration and attention span normal. Lymphatic: Head/Neck- normal size and non tender to palpation. Axillary- normal size and non tender to palpation. Femoral and Inguinal- normal size and non tender to palpation. - Lab/Tests/Diagnostic Imaging Lab/Tests/Diagnostic Imaging: Laboratory Last Values WBC 10.72 K/ul (4.2-10.2) H 07/22/18 18:22 RBC 4.38 10^6/ul (4.70-6.10) L 07/22/18 18:22 Hgb 13.8 g/dl (14.0-18.0) L 07/22/18 18:22 Hct 38.2 % (42.0-52.0) L 07/22/18 18:22 MCV 87.2 fl (80.0-94.0) 07/22/18 18:22 MCH 31.5 pg (27.0-31.0) H 07/22/18 18:22 MCHC 36.1 (31.8-35.4) H 18 18:22 RDW Coeff of Angelita 13.2 % (11.6-14.8) 07/22/18 18:22 Plt Count 149 10^3/uL (140-440) 11/17/18 18:22 Immature Gran % (Auto) 0.4 % (0.0-5.0) 07/22/18 18:22 Neut % (Auto) 72.9 07/22/18 18:22 Lymph % (Auto) 18.2 (10.0-50.0) 07/22/18 18:22 [place] % (Auto) 7.6 (0-10) 07/22/18 18:22 Eos % (Auto) 0.7 % (0.0-7.0) 07/22/18 18:22 Baso % (Auto) 0.2 % (0.0-3.0) 07/22/18 18:22 Immature Gran # (Auto) 0.0 (0.0-1.0) 07/22/18 18:22 Neut # (Auto) 7.8 K/ul (2.0-6.9) H 07/22/18 18:22 Lymph # (Auto) 2.0 K/uL (0.60-3.4) 07/22/18 18:22 [place] # (Auto) 0.8 K/uL (0.4-2.0) 07/22/18 18:22 Eos # (Auto) 0.1 K/ul (0.0-0.7) 07/22/18 18:22 Baso # (Auto) 0.0 K/uL (0-0.2) 07/22/18 18:22 ESR 16 mm/hr (0-15) H 07/22/18 18:22 Puncture Site Rb 07/22/18 17:25 O2 Saturation 95.0 % (95-100) 07/22/18 17:25 ABG pH 7.435 (7.35-7.45) 07/22/18 17:25 ABG pCO2 40.8 mmHg (35-45) 07/22/18 17:25 ABG pO2 76.0 mmHg (85-100) L 07/22/18 17:25 ABG HCO3 27.4 (22.0-26.0) H 07/22/18 17:25 ABG Total CO2 29 (22.0-28.0) H 07/22/18 17:25 ABG Base Excess 3 (-2.0-2.0) H 07/22/18 17:25 FiO2 % 21.0 % 07/22/18 17:25 Sodium 137.1 mmol/L (137-145) 07/22/18 18:22 Potassium 3.80 mmol/L (3.5-5.1) 07/22/18 18:22 Chloride 103.1 mmol/L (98-107) 07/22/18 18:22 Carbon Dioxide 30.1 mmol/L (22-30.0) H 07/22/18 18:22 Anion Gap 7.70 07/22/18 18:22 BUN 5.4 mg/dL (9-20) L 07/22/18 18:22 Creatinine 0.94 mg/dL (0.60-1.10) 07/22/18 18:22 Estimated GFR (MDRD) 88.00 mL/min 07/22/18 18:22 BUN/Creatinine Ratio 5.74 07/22/18 18:22 Glucose 94.1 mg/dL (74-106) 07/22/18 18:22 Lactic Acid 1.13 mmol/L (0.7-2.1) 07/22/18 18:22 Calcium 9.29 mg/dL (8.4-10.2) 07/22/18 18:22 Total Bilirubin 0.76 mg/dL (0.2-1.3) 07/22/18 18:22 AST 53.6 U/L (17-59) 07/22/18 18:22 ALT 36.6 U/L (0-50) 07/22/18 18:22 Alkaline Phosphatase 63.5 U/L (38-126) 07/22/18 18:22 Total Protein 7.05 g/dL (6.3-8.2) 07/22/18 18:22 Albumin 4.29 g/dL (3.5-5.0) 07/22/18 18:22 Globulin 2.76 07/22/18 18:22 Albumin/Globulin Ratio 1.55 07/22/18 18:22 Procalcitonin < 0.05 ng/mL (<0.05) 07/22/18 18:22 Urine Color Yellow (YELLOW) 07/22/18 18:32 Urine Clarity Clear (CLEAR) 07/22/18 18:32 Urine pH 7.5 (5-9) 07/22/18 18:32 Ur Specific [place] 1.015 (1.005-1.030) 07/22/18 18:32 Urine Protein Negative (NEGATIVE) 07/22/18 18:32 Urine Glucose (UA) Negative (NEGATIVE) 07/22/18 18:32 Urine Ketones Negative (NEGATIVE) 18 18:32 Urine Blood Negative (NEGATIVE) 07/22/18 18:32 Urine Nitrite Negative (NEGATIVE) 07/22/18 18:32 Urine Bilirubin Negative (NEGATIVE) 07/22/18 18:32 Urine Urobilinogen 0.2 (0.2) 07/22/18 18:32 Ur Leukocyte Esterase Negative (NEGATIVE) 07/22/18 18:32 Urine Opiates Screen Positive (NEGATIVE) 07/22/18 18:32 Ur Oxycodone Screen Negative (NEGATIVE) 07/22/18 18:32 Urine Methadone Screen Negative (NEGATIVE) 07/22/18 18:32 Ur Propoxyphene Screen Negative (NEGATIVE) 07/22/18 18:32 Ur Barbiturates Screen Negative (NEGATIVE) 07/22/18 18:32 U Tricyclic Antidepress Negative (NEGATIVE) 07/22/18 18:32 Ur Phencyclidine Scrn Negative (NEGATIVE) 07/22/18 18:32 Ur Amphetamine Screen Negative (NEGATIVE) 07/22/18 18:32 U Methamphetamines Scrn Negative (NEGATIVE) 07/22/18 18:32 U Benzodiazepines Scrn Negative (NEGATIVE) 18 18:32 Urine Cocaine Screen Negative (NEGATIVE) 07/22/18 18:32 U Cannabinoids Screen Positive (NEGATIVE) 07/22/18 18:32 Influ A Molecular Assay Negative by naat (NEGATIVE) 07/22/18 18:16 Influ B Molecular Assay Negative by naat (NEGATIVE) 07/22/18 18:16 CXR: Rad review not available to me at admit. Very white/penetration. Vascular markings to my review. Difficulty visualizing seeing costophrenic angles and borders. I contacted radiology and they noted normal CXR. - Assessment (1) SIRS (systemic inflammatory response syndrome) Status: Acute Code(s): R65.10 - SIRS OF NON-INFECTIOUS ORIGIN W/O ACUTE ORGAN DYSFUNCTION SNOMED Code(s): 130490752 (2) Abnormal drug screen Status: Acute Code(s): R89.2 - ABN LEV DRUG/MEDS/BIOL SUBST IN SPECIMENS FROM OTH ORG/TISS SNOMED Code(s): 424457311 (3) Essential (primary) hypertension Status: Chronic Code(s): I10 - ESSENTIAL (PRIMARY) HYPERTENSION SNOMED Code( s): 73289618 (4) Schizophrenia Status: Chronic Code(s): F20.9 - SCHIZOPHRENIA, UNSPECIFIED SNOMED Code(s): 03402861 (5) COPD with exacerbation Status: Acute Code(s): J44.1 - CHRONIC OBSTRUCTIVE PULMONARY DISEASE W (ACUTE ) EXACERBATION SNOMED Code(s): 230602420 (6) BMI 45.0-49.9, adult Status: Chronic Code(s): Z68.42 - BODY MASS INDEX (BMI) 45.0-49.9, ADULT SNOMED Code(s): 242263097, 741630233 (7) Smokes 1.5 packs of cigarettes per day Status: Chronic Code(s): F17.210 - NICOTINE DEPENDENCE, CIGARETTES, UNCOMPLICATED SNOMED Code(s): 075240450 (8) Family history of pulmonary fibrosis Status: Chronic Code(s): Z83.6 - FAMILY HISTORY OF OTHER DISEASES OF THE RESPIRATORY SYSTEM SNOMED Code(s): 195103909 - Plan Plan: SIRS (systemic inflammatory response syndrome) (Acute)COPD with exacerbation ( Acute): Suspect acute bronchitis with possibility of COPD exacerbation by history and exam. We reviewed smoking history. Smoking cessation and tobacco avoidance highly encouraged today (both active and passive). We reviewed GOLD criteria. Gold defines exacerbation of COPD as acute event leading to worsening of respiratory symptoms with 3 cardinal features: increased cough freq /severity, sputum production volume/quality, worsened Dyspnea. Risk factors for exacerbations include advancing age, duration of COPD, history of abx use, prev hospitalization within past 12 months, mucus production, comorbidities to include heart disease, CHF, DM, and exposures. Respiratory infections are the most likely trigger in up to 70% of cases to include viral processes such as Rhino (warmer months), islas, adeno, parainfluenza (cooler months), allergic process, viral/bacterial pneumonia. Studies have shown benefit to bronchodilators (grade 1B) and show reduced time to resolution of cough. Anticholinergic agents are often used in combination as studies show enhanced bronchodilation beyond that seen by either agent alone. Caution advised if any history of BPH or similar in male patients. Systemic glucocorticoids have been shown to have beneficial effect. Recommendations include dosing steroid equivalent to prednisone 40 mg daily x 5 days. Inhaled GC are of minimal benefit in acute exacerbation, but should not be stopped. Continue home med. We discussed that studies suggest use of abx is controversial, he has 3/3 cardinal features and hospitalized thus using abx. These are recommended to be avoided for simple bronchitis. The patient/family voiced understanding. Discussed pros and cons of steroid use both injectible and oral forms and specifically with use of levaquin. Offered trial of nebulizer in office today. Discussed home use of inhaler and provided education on inhaler usage today. F/U in 1-2 weeks PRN if not improving. Role of alpha 1 antitrypsin discussed with diagnosis. Yearly spirometry encouraged. Would like spirometry in 1-2 months if not done within past 12 months. Decadron, dexamethasone, methylprednisolone-Pt notified of potential pros/risks of steroid treatment including rapid improvement of condition; allergic reaction, psychologic reaction (depression, anxiety, insomnia), skin change at injection site (color, dimpling), muscle weakness. Pt is aware they may refuse treatment. Suspect Pickwickian syndrome as possible. SIRS +. CXR negative, labs reasonable, he has no acute resp distress. He has used doxy within last 2 weeks. I will thus escalte to levaquin. He has no aspiration. No travel. - Tobacco avoidance discussed specifically - Reviewed LAMA, LABA, GC, MALACHI agents. - Admit obs - Fluids as listed - Suspect d/c in am tomorrow if he continues to improve. - alpha 1 testing as outpatient, Consider CF testing (brother pancreatitis, father fibrosis of lungs). Consider pulm referral. - PO levaquin - PO prednisone - R/B/A to these d/w patient. - CBC/CMP in am. - Albuterol q 4 - Ipratropium q 6 - O2 to titrate of 92-98%. Schizophrenia: REsume home meds. Abnormal drug screen (Acute): Noted he did smoke THC. Cessation encouraged at length today. He denies opiates in his system. BMI 45.0-49.9, adult (Acute):Discussed the federal guidelines suggest a healthy goal BMI of 18.5-24.9 for people 18-65 and 23-30 for people age 65 and older. Overweight is considered BMI 25-30, Obesity 30-40 and Morbid obesity is defined as >100 lb overweight or BMI >40. With a BMI above goal, it is recommended to utilize a diet/exercise program to get back into the appropriate range. Consider referral to vacuum evaporation operator. For BMI >40 consider referral to bariatrics. If not already monitoring intake. I would recommend at least to keep a food diary. Document everything that is consumed into a food diary. Studies have shown that patients can lose up to 2x the weight by keeping track of foods. Offered handout on weight loss techniques. Apps that may be of benefit include Cellay, Lose it. Regular exercise encouraged. Start with walking 5-10 minutes at a pace that is difficult to carry a conversation. If chest pain/SOA stop and f/u in office. Essential (primary) hypertension (Acute): Chronic/stable problem. Doing well, continue to monitor Tobacco Abuse 1.5 PPD. Tobacco Cessation discussed today for 2 minutes. We reviewed lifestyle choices and discussed quitting. Ready to quit status discussed. The risks and hazards of continued tobacco abuse were discussed with the patient today and total tobacco cessation as recommended. It was clearly and unambiguously explained that continued tobacco usage will adversely affect overall morbidity and mortality of the patient. Patient was informed that tobacco use can lead to numerous cancers, worsening of cardiovascular and pulmonary systems and that lung damage is often permanent and irreversible. I advised the patient to inform me if any further assistance is requested, as we can offer counseling services, nicotine replacement inhaled, patch, lozenge, gum , or prescription medications to include Chantix or Wellbutrin for assistance. I will reassess the interest in tobacco cessation at the next and all subsequent visits. DVT Prophy: - Lovenox Diet: ADA 1999 Gi Prophy: Resume home meds. Vaccinations: Here w/ acute URI. none to be given. Dispo: No acute distress, acute on chronic problem with mild exac to mod exac. He has meds at home. PO prednisone 40 daily, levaquin 750 daily each x 5 days. Recommend see Meme Whelan as MANAGER CAR, consider f/u with pulm and consider doing alpha 1 testing in office. NO known history of CF. + Fam hx of pulm fibrosis. Prominent tobacco history. Labs looked okay tonight. Reviewed drug use with him, he denies using opiates. He did admit to THC. We discussed not appropriate to use mood altering drug in mood altering condition. He needs outpatient therapy and will likely be d/c in am. 70 minutes spent with admission today. Tobacco Cessation discussed today for 2 minutes. We reviewed lifestyle choices and discussed quitting. Ready to quit status discussed. The risks and hazards of continued tobacco abuse were discussed with the patient today and total tobacco cessation as recommended. It was clearly and unambiguously explained that continued tobacco usage will adversely affect overall morbidity and mortality of the patient. Patient was informed that tobacco use can lead to numerous cancers, worsening of cardiovascular and pulmonary systems and that lung damage is often permanent and irreversible. I advised the patient to inform me if any further assistance is requested, as we can offer counseling services, nicotine replacement inhaled, patch, lozenge, gum, or prescription medications to include Chantix or Wellbutrin for assistance. I will reassess the interest in tobacco cessation at the next and all subsequent visits.
--- NOTE | 2018-07-22 23:13 | DI ---
EXAM: Chest, one-view HISTORY: Cough and shortness of breath FINDINGS: Cardiac and mediastinal contours are normal. Pulmonary vasculature is normal. Lungs are clear. Bony thorax is unremarkable. IMPRESSION: Within normal limits
[2018-07-22] MEDS ORDERED: NICODERM 21 MG TD SCH (23:30)
[2018-07-23] MEDS: ATROVENT 0.02% NEB NEB SCH ×2 (00:30→05:00)
[2018-07-23] MEDS ORDERED: NON-FORMULARY MEDICATION (Ranitidine Hcl [Zantac] 300 MG) PO SCH ×3 (00:45→09:00)
[2018-07-23] MEDS ORDERED: LEXAPRO PO SCH ×3 (00:45→21:00)
[2018-07-23] MEDS ORDERED: NON-FORMULARY MEDICATION (Rosuvastatin Calcium [Crestor] 20 MG) PO SCH ×3 (00:45→21:00)
[2018-07-23] MEDS ORDERED: HALOPERIDOL 5 MG PO SCH ×3 (00:45→21:00)
[2018-07-23] MEDS ORDERED: ATARAX PO SCH ×3 (00:45→09:00)
[2018-07-23] MEDS ORDERED: NON-FORMULARY MEDICATION (Trazodone Hcl [Trazodone Hcl] 100 MG) PO SCH ×3 (00:45→21:00)
[2018-07-23] MEDS: ALBUTEROL 0.083% NEB NEB SCH ×3 (01:20→09:35)
[2018-07-23 05:48] VITALS: BP 120/71; TEMP 98
[2018-07-23] MEDS ORDERED: LEVAQUIN PO SCH (06:30)
[2018-07-23] MEDS ORDERED: SOLU-MEDROL 125 MG IVP SCH (07:00)
[2018-07-23] MEDS ORDERED: PREDNISONE PO SCH (08:00)
[2018-07-23] MEDS ORDERED: ASPIRIN EC PO SCH (08:00)
[2018-07-23] MEDS ORDERED: MIRALAX PO SCH (09:00)
[2018-07-23] MEDS ORDERED: SINGULAIR PO SCH (09:00)
[2018-07-23] MEDS ORDERED: ROCEPHIN 1 GM in SODIUM CHLORIDE 50 ML IV SCH (09:00)
[2018-07-23] MEDS ORDERED: FLONASE NAS SCH (09:00)
[2018-07-23] MEDS ORDERED: SYMBICORT 160-4.5 MCG INHALER IH SCH (09:00)
[2018-07-23] MEDS ORDERED: PALIPERIDONE 12 MG PO SCH (09:00)
--- NOTE | 2018-07-23 09:29 | PCM.DC ---
1. SIRS (systemic inflammatory response syndrome) (Acute)COPD with exacerbation (Acute): 2. Schizophrenia (CHRONIC): 3. Abnormal drug screen (Acute): Opiate and THC 4. BMI 45.0-49.9, adult (CHRONIC): 5. Essential (primary) hypertension (Chronic): 6. Tobacco Abuse 1.5 PPD. 7. Family history of pulmonary fibrosis (Chronic) 8. Recent abx use. 9. Suspect Obesity hypoventilation. (1) SIRS (systemic inflammatory response syndrome) Status: Acute Code(s): R65.10 - SIRS OF NON-INFECTIOUS ORIGIN W/O ACUTE ORGAN DYSFUNCTION SNOMED Code(s): 069389331 (2) Abnormal drug screen Status: Acute Code(s): R89.2 - ABN LEV DRUG/MEDS/BIOL SUBST IN SPECIMENS FROM OTH ORG/TISS SNOMED Code(s): 030748328 (3) Essential (primary) hypertension Status: Chronic Code(s): I10 - ESSENTIAL (PRIMARY) HYPERTENSION SNOMED Code( s): 32683118 (4) Schizophrenia Status: Chronic Code(s): F20.9 - SCHIZOPHRENIA, UNSPECIFIED SNOMED Code(s): 77347919 (5) COPD with exacerbation Status: Acute Code(s): J44.1 - CHRONIC OBSTRUCTIVE PULMONARY DISEASE W (ACUTE ) EXACERBATION SNOMED Code(s): 288519050 (6) BMI 45.0-49.9, adult Status: Chronic Code(s): Z68.42 - BODY MASS INDEX (BMI) 45.0-49.9, ADULT SNOMED Code(s): 802468636, 028807398 (7) Smokes 1.5 packs of cigarettes per day Status: Chronic Code(s): F17.210 - NICOTINE DEPENDENCE, CIGARETTES, UNCOMPLICATED SNOMED Code(s): 115530648 (8) Family history of pulmonary fibrosis Status: Chronic Code(s): Z83.6 - FAMILY HISTORY OF OTHER DISEASES OF THE RESPIRATORY SYSTEM SNOMED Code(s): 704895273 Reason for Hospitalization: COPD exacerbation, admitted to observational status to monitor overnight. He did great, d/c in am stable, semi-chronic status. Prognosis at Discharge: Improved/Stable. Condition at Discharge: Doing well, slept well, breathing is chronically poor, he is stable/at baseline and he requested home. Medications at Discharge: Ambulatory Orders Medication Instructions Recorded Aspirin [Aspirin EC] 81 mg PO DAILYWM 02/08/14 Multi Vitamin Daily 1 each PO DAILY 05/01/15 Vitamin B Complex [B Complex] 1 each PO DAILY 05/01/15 Haloperidol 5 mg PO BEDTIME 09/05/16 Hydroxyzine HCl 25 mg PO TID #90 10/28/16 Acetaminophen [Tylenol] 650 mg PO ONCE tablet 07/23/18 Albuterol Sulfate 0.083% Neb 1 vial NEB RTQ4H 30 Days #120 07/23/18 [Albuterol 0.083% Neb] vial.neb Ipratropium Savanna 0.02% Neb 1 vial NEB RTQ6H 30 Days #120 07/23/18 [Atrovent 0.02% Neb] vial.neb Levofloxacin [Levaquin] 750 mg PO QDAC 4 Days #4 tablet 07/23/18 Nicotine 21 mg [Nicoderm 21 mg] 1 patch TD DAILY 14 Days #14 07/23/18 patch.td24 Prednisone 40 mg PO DAILYWM 4 Days #8 tablet 07/23/18 Lab/Diagnostics: Laboratory Last Values WBC 7.72 K/ul (4.2-10.2) 07/23/18 05:10 RBC 4.54 10^6/ul (4.70-6.10) L 07/23/18 05:10 Hgb 13.9 g/dl (14.0-18.0) L 07/23/18 05:10 Hct 40.2 % (42.0-52.0) L 07/23/18 05:10 MCV 88.5 fl (80.0-94.0) 07/23/18 05:10 MCH 30.6 pg (27.0-31.0) 07/23/18 05:10 MCHC 34.6 (31.8-35.4) 07/23/18 05:10 RDW Coeff of Angelita 13.4 % (11.6-14.8) 07/23/18 05:10 Plt Count 161 10^3/uL (140-440) 07/23/18 05:10 Immature Gran % (Auto) 0.4 % (0.0-5.0) 07/23/18 05:10 Neut % (Auto) 83.0 07/23/18 05:10 Lymph % (Auto) 15.2 (10.0-50.0) 07/23/18 05:10 Frederick % (Auto) 1.4 (0-10) 07/23/18 05:10 Eos % (Auto) 0.0 % (0.0-7.0) 07/23/18 05:10 Baso % (Auto) 0.0 % (0.0-3.0) 07/23/18 05:10 Immature Gran # (Auto) 0.0 (0.0-1.0) 07/23/18 05:10 Neut # (Auto) 6.4 K/ul (2.0-6.9) 07/23/18 05:10 Lymph # (Auto) 1.2 K/uL (0.60-3.4) 07/23/18 05:10 Frederick # (Auto) 0.1 K/uL (0.4-2.0) L 07/23/18 05:10 Eos # (Auto) 0.0 K/ul (0.0-0.7) 07/23/18 05:10 Baso # (Auto) 0.0 K/uL (0-0.2) 07/23/18 05:10 ESR 16 mm/hr (0-15) H 07/22/18 18:22 Puncture Site Rb 07/22/18 17:25 O2 Saturation 95.0 % (95-100) 07/22/18 17:25 ABG pH 7.435 (7.35-7.45) 07/22/18 17:25 ABG pCO2 40.8 mmHg (35-45) 07/22/18 17:25 ABG pO2 76.0 mmHg (85-100) L 07/22/18 17:25 ABG HCO3 27.4 (22.0-26.0) H 07/22/18 17:25 ABG Total CO2 29 (22.0-28.0) H 07/22/18 17:25 ABG Base Excess 3 (-2.0-2.0) H 07/22/18 17:25 FiO2 % 21.0 % 07/22/18 17:25 Sodium 137.0 mmol/L (137-145) 07/23/18 05:10 Potassium 3.80 mmol/L (3.5-5.1) 07/23/18 05:10 Chloride 103.6 mmol/L (98-107) 07/23/18 05:10 Carbon Dioxide 28.4 mmol/L (22-30.0) 07/23/18 05:10 Anion Gap 8.80 07/23/18 05:10 BUN 9.4 mg/dL (9-20) 07/23/18 05:10 Creatinine 0.82 mg/dL (0.60-1.10) 07/23/18 05:10 Estimated GFR (MDRD) 103.00 mL/min 07/23/18 05:10 BUN/Creatinine Ratio 11.46 07/23/18 05:10 Glucose 172.2 mg/dL (74-106) H D 07/23/18 05:10 Lactic Acid 1.13 mmol/L (0.7-2.1) 07/22/18 18: Calcium 9.33 mg/dL (8.4-10.2) 07/23/18 05:10 Total Bilirubin 0.55 mg/dL (0.2-1.3) 07/23/18 05:10 AST 45.8 U/L (17-59) 07/23/18 05:10 ALT 36.2 U/L (0-50) 07/23/18 05:10 Alkaline Phosphatase 65.0 U/L (38-126) 07/23/18 05:10 Total Protein 7.33 g/dL (6.3-8.2) 07/23/18 05:10 Albumin 4.32 g/dL (3.5-5.0) 07/23/18 05:10 Globulin 3.01 07/23/18 05:10 Albumin/Globulin Ratio 1.43 07/23/18 05:10 Procalcitonin < 0.05 ng/mL (<0.05) 07/22/18 18:22 Urine Color Yellow (YELLOW) 07/22/18 18:32 Urine Clarity Clear (CLEAR) 07/22/18 18: Urine pH 7.5 (5-9) 07/22/18 18:32 Ur Specific Dwight 1.015 (1.005-1.030) 07/22/18 18:32 Urine Protein Negative (NEGATIVE) 07/22/18 18: Urine Glucose (UA) Negative (NEGATIVE) 07/22/18 18:32 Urine Ketones Negative (NEGATIVE) 07/22/18 18:32 Urine Blood Negative (NEGATIVE) 07/22/18 18:32 Urine Nitrite Negative (NEGATIVE) 07/22/18 18:32 Urine Bilirubin Negative (NEGATIVE) 07/22/18 18:32 Urine Urobilinogen 0.2 (0.2) 07/22/18 18:32 Ur Leukocyte Esterase Negative (NEGATIVE) 07/22/18 18:32 Urine Opiates Screen Positive (NEGATIVE) 07/22/18 18:32 Ur Oxycodone Screen Negative (NEGATIVE) 07/22/18 18:32 Urine Methadone Screen Negative (NEGATIVE) 07/22/18 18:32 Ur Propoxyphene Screen Negative (NEGATIVE) 07/22/18 18:32 Ur Barbiturates Screen Negative (NEGATIVE) 07/22/18 18:32 U Tricyclic Antidepress Negative (NEGATIVE) 07/22/18 18:32 Ur Phencyclidine Scrn Negative (NEGATIVE) 07/22/18 18:32 Ur Amphetamine Screen Negative (NEGATIVE) 07/22/18 18:32 U Methamphetamines Scrn Negative (NEGATIVE) 07/22/18 18:32 U Benzodiazepines Scrn Negative (NEGATIVE) 07/22/18 18:32 Urine Cocaine Screen Negative (NEGATIVE) 07/22/18 18:32 U Cannabinoids Screen Positive (NEGATIVE) 07/22/18 18:32 Influ A Molecular Assay Negative by naat (NEGATIVE) 07/22/18 18:16 Influ B Molecular Assay Negative by naat (NEGATIVE) 07/22/18 18:16 WBC Trends 07/22/18 07/23/18 Range/Units 18:22 05:10 WBC 10.72 H 7.72 (4.2-10.2) K/ul CXR: 07/22/18 per radiology no acute process. Telemetry: NSR throughout stay. Education Provided to Patient and Family: 1. Smoking cessation 2. Weight loss goals. 3. Continue to f/u w/ psych 4. F/U with PCP regarding pulmonary system. - Consider refer pulm - Consider spirometry - Consider alpha 1 antitrypsin - Smoking cessation 5. Meds reviewed with patient. Disposition: HOME SELF-CARE Hospital Course: 43 yo WM presented to ED at 1700 07/22/18 as a walk in, seen by DR. Baca. The patient has been a long standing established patient of JASKARAN Whelan, saw JASKARAN Wheeler recently as a walk-in on 07/06/18 for URI/Cough/COPD exacerbation and treated with decadron PO, doxycycline hycalate and tessalon. Presented to ED w / SOA, repeat symptoms yesterday of sinus congestion, rhinorrhea and cough productive of increased sputum, increased MANDEL, nasal congestion, cough, sore throat. Chills, hot/cold. Chronic Smoker 1 1/2 ppd ~30 years, discussed with JASKARAN Wheeler on 07/06/18 and he is not ready to quit (STILL NOT BUT WILLING TO LISTEN). Chest pain diffusely with deep cough/inspiration, better with rest. He presented with temp of >101, SIRS criteria met based on his vitals. Chest pain at 5/10 with deep breath/coughing. Sx in general worse with deep breathing , supine posture, smoking and with weather hot/cold changes. Wheezing was present, labored breathing present, orthopnea. No home O2 regularly during day/ night. Known history of Morbid Obesity, HTN, stable. Hyperlipidemia chronically last checked 04/2018 total 197, trigly 212, LDL 117. Anemia historically. Low b12 in 10/15/16 at 196. Not repeated. COPD, unstable with current exacerbation. Current labs reviewed WBC 10.72, hgb 13.8, plt 149. ESR mildly elevated at 16. White cell diff shows predominate neutrophilia. ABG here today normal 17:25. PH 7.435. PCO2 40.8, hypoxia po2 76, hc03 27.4, CO2 29. CMP Normal sodium, normal K+, normal CL, normal Cr 0.94. Remainder of CMP normal. Procalcitonin negative. Lactate 1.13 and negative. Ill appearing, obese male, moderately sick appearing in ER. Normal cardiac exam, diminished sounds , rhonci and wheezes. CXR personally reviewed and appears very white with problematic penetration, unable to visualize costophrenic angles, unable to visualize diaphragm and prominent vascular markings. Ayse midline. Radiology report normal. Flu was negative. Strep was negative. UDS + for opiates and cannabinoids. He noted he smoked marijuana but unknown how opiates in system. ? Contaminant? Methylpred given in ER, fluids given in ER. Temp 101.0, HR 111, BP stable 139/70, PO2 93%. PLACED into obs with COPD exacerbation to room 119- 1. Home meds reviewed. Combivint listed. Patient has no regular psych provider as they continue to change providers locally. He notes he does smoke, a lot, within minutes of getting up. 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 Father early with pulm fibrosis. He does not think anyone has ever brought up alpha 1 testing or similar, he has never seen pulm despite his family history. He noted that he feels about the same as he did 07/06/18 and that he never got to 100%. He has been using nebs very rarely over last 48 hours 1-2x per day. Brother prominent pancreatic process. He has concerning history for CF, for alpha 1 antitrypsin deficiency and again he reports never seeing pulm. I would recommend to him that he sees pulm as outpatient to complete this w/u. He is calm, in bed, reported own history, full sentences, no distress. Morbid obesity, cannot lay flat. No recent travel. No changes in tobacco. Overnight he did fine. He was sleeping and easily awoken this am. 90-93 on room air to 2L. He was not using any oxygen when I entered today, he was breathing fine with some wheezing but no retracting, no accessory use. Some mild oliguria based on his Weight of 326 lb 0.4ml/kg/hour over last 8 hours. Vitals are stable, he feels better with using nebs and is ready to go home. With neg flu, neg strep, CXR report suggesting negative, I believe he is okay to d/c home with albuterol nebs q4 hours, ipratropium 4x daily, levaquin x 5 days total (4 days as outpatient as received dose 07/23/18) and prednisone x 5 days. I would recommend f/u for pulmonary w/u and to repeat vitamin B12 as outpatient as his anemia was stable in hospital. F/U with psych for psych related concerns. He is stable and close to baseline. He needs regular nebs, which he was not using. Tobacco cessation is highly encouraged. NO issues overnight and he is comfortable this am. Day of Discharge Exam: Constitutional: Appearance- Breathing comfortablyn, no obvious resp distress, Older than stated age. Orientation- Oriented x 3, alert Build and Nutrition-[ MORBIDLY OBESE MALE] General- Patient is pleasant and cooperative with the interview and exam. Integumentary: General-Scattered acneiform lesions back. Deep sacral dimple. NO sores/no pressure lesions. Numerous Acrochordons around eyes, bilateral axilla. Head/Neck: Head- normocephalic and atraumatic. Neck- without visible/palpable lumps or pulsations. Palpation- No bony tenderness about head/neck along frontal, occipital, temporal, parietal, mastoid, jawline, zygoma, orbit or any other location. NO temporal artery tenderness. No TMJ tenderness. Neck Supple. Thyroid-No thyromegaly, no nodules Eye: Bilaterally PERRLA, EOMI. No discharge. Upper and lower eyelids are normal. Sclera/conjunctiva normal without discharge. Cornea is normal and clear. Lens is normal. Eyeball appears normal. No ciliary flushing, no conjunctival injection. ENMT: Pinna- normal without tenderness or erythema. External auditory canal Left- normal without erythema or discharge, no excessive cerumen. External auditory canal Right-normal without erythema or discharge, no excessive cerumen. TM left- Menon/pearly, normal light reflex and anatomy TM Right- Menon/ pearly, normal light reflex and anatomy Hearing Assessment-normal to conversational speech. Nose and sinus- No sinus tenderness along frontal/ maxillary region. External appearance normal and midline. Nares- bilateral quiet airflow, no discharge. Nasal mucosa- No bleeding noted and no ulcerations observed. ErythematousTurbinates boggy. Lips- normal color, moist without cracks /lesions Oral Cavity/Palate- hard/soft palate intact without lesions, oral mucosa pink and moist. Dentition poor, missing teeth Tongue normal midline. Oropharynx- pharyngeal erythema, Uvula midline. + post nasal drip. Mild posterior exudate. Salivary glands- Non tender to palpation CHEST/LUNG: Inspection- Prominent chest wall, morbidly obese, distant sounds. Palpation- nontender sternum, ribline. No abnormal pulsations. Auscultation- Breath sounds diminished throughout all lung carballo. No active distress, no accessory muscles. Decreased/coarse tracheal sounds, bronchial sounds overlying sternum, Bronchovessicular sounds between scapulae posteriorly, vessicular breath sounds heard throughout periphery. Adventitious sounds- Scattered wheezes, NO rales, scattered rhonchi. CARDIOVASCULAR: Palpation/Percussion- Unable to palpate through chest wall. Distant heart sounds. No appreciable murmur. Auscultation- Regular rate and rhythm. No murmur noted in sitting, supine positions. ABDOMEN: Inspection- Prominent central adiposity. Auscultation- Bowel sounds distant but sounded normal, no abdominal bruits. Palpation/Percussion- soft, non -tender, no rebound tenderness, no rigidity (guarding), no jar tenderness, no masses. Liver-no hepatomegaly, Spleen no splenomegaly, Hernias- none. Rectal not examined. Peripheral Vascular: Upper extremity Left- Normal temperature with pink nailbeds and no ulcerations. Upper extremity Right- Normal temperature with pink nailbeds and no ulcerations. Lower extremity- Normal temperature with pink nailbeds and no ulcerations. DP pulses 2+ bilaterally. Pedal hair intact. Normal capillary refill. Edema- No edema. Musculoskeletal: Generalized-No generalized swelling or edema of extremities, no digital clubbing or cyanosis, neurovascularly intact all four extremities. Neurological: General- Moves all 4 extremities symmetrically. Symmetrical face and body posture. Cranial nerves- individually evaluated II-XII and intact. PERRLA, Normal EOMI, visual/special senses appear intact, Face is symmetrical and normal sensation/movement, normal tongue, normal strength/posture of neck musculature. Reflexes- intact with DTR 2+ patellar, Achilles, bicep, brachial, tricep. Ankle clonus normal with 2 beats. Strength- 5/5 bilateral UE and LE. Soft touch- intact bilateral UE and LE. Temperature sensation- intact bilateral UE and LE. Neuropsych: Oriented- Pleasant, alert, awake and oriented to Person, place, time. (AAOx3), Mood/affect- normal and congruent. Able to articulate well. Speech-Normal speech, normal rate, normal tone, normal use of language, volume and coherence. Thought content- Answered all questions easily, no odd behaviors tonight. normal with ability to perform basic computations and apply abstract thought/reason. Associations- intact, no SI/HI, no hallucinations, delusions, obsessions. Judgment/insight- Appropriate. Memory-Recall intact, remote and recent memory intact. Knowledge- Age appropriate fund of knowledge, concentration and attention span normal. Lymphatic: Head/Neck- normal size and non tender to palpation. Axillary- normal size and non tender to palpation. Femoral and Inguinal- normal size and non tender to palpation. Plan: 1. Albuterol nebs q 4 hours 2. Ipratropium 4x daily add this to the albuterol. 3. Stop home dose of ipratropium/albuterol combo. Do not throw this away, we may go back to it in 2-4 weeks. You need albuterol more frequently than the duonebs should be used. 4. Levaquin 750mg Take 1 pill for the next 4 days start 07/24/18 5. Prednisone 20mg Take 2 pills of the 20mg for total of 40mg for next 4 days. 6. Smoking cessation highly encouraged. Patches provided. 7. Weight loss highly encouraged. 8. Resume home meds, f/u with PCP to address. 9. Repeat B12 as outpatient history of anemia and low b12 (not related to current hospital admit, noted on chart review). Needed F/U steps. A. Alpha 1 antitrypsin testing as outpatient highly encouraged. I have these kits in the office that PCP can use if needed. B. Smoking cessation is a high priority. C. Consider referral to pulm for further evaluation with family history of pulm fibrosis in father. D. Spirometry in 1 month. E. B12. 20 minutes spent on d/c today.
[2018-07-23] MEDS ORDERED: NICODERM 21 MG TD SCH (21:00)
[2018-07-23] MEDS ORDERED: LOVENOX SUBCUT SCH (21:00)
== END 2018-07-23 10:00 | disposition home or self-care (01) ==
LOC: ED 17:10 → UNDOADMOB 19:52 → MEDSURG B 19:52
PROVIDERS: ADMIT Family Medicine; ATTEND Family Medicine
DX: J44.1 Chronic obstructive pulmonary disease with (acute) exacerbation (principal); R65.10 Systemic inflammatory response syndrome (SIRS) of non-infectious origin without acute organ dysfunction; Z68.42 Body mass index [BMI] 45.0-49.9, adult; R06.00 Dyspnea, unspecified; R50.9 Fever, unspecified; R53.1 Weakness; R89.2 Abnormal level of other drugs, medicaments and biological substances in specimens from other organs, systems and tissues; I10 Essential (primary) hypertension; F20.9 Schizophrenia, unspecified; F17.210 Nicotine dependence, cigarettes, uncomplicated; Z83.6 Family history of other diseases of the respiratory system
CPT/HCPCS: 36415; 80053; 80306; 81001; 82803; 82962; 83605; 84145; 85025; 85651; 87040; 87070; 87502; 87651; 93005; 93010; 94640; 96365; 96375; 99284

== ENCOUNTER 2018-10-25 11:59 | Outpatient (CLI) | END 2018-10-25 12:00 | disposition home or self-care (01) | LOC: RHC-LAB 11:59 | PROVIDERS: ATTEND Nurse Practitioner Family | DX: E78.5 Hyperlipidemia, unspecified (principal) | CPT/HCPCS: 36415; 80053; 80061 ==

== ENCOUNTER 2018-10-26 14:51 | Outpatient (CLI) | payer OTHER | END 2018-10-26 14:52 | disposition home or self-care (01) | LOC: RHC-LAB 14:51 | PROVIDERS: ATTEND Nurse Practitioner Family | DX: R05 Cough (principal); J02.9 Acute pharyngitis, unspecified; E78.5 Hyperlipidemia, unspecified; E78.1 Pure hyperglyceridemia | CPT/HCPCS: 87502; 87651 ==

== ENCOUNTER 2019-04-23 12:45 | Outpatient (CLI) | END 2019-04-23 12:46 | disposition home or self-care (01) | LOC: LAB 12:45 | PROVIDERS: ATTEND Nurse Practitioner Family | DX: J44.9 Chronic obstructive pulmonary disease, unspecified (principal); E78.5 Hyperlipidemia, unspecified; E78.1 Pure hyperglyceridemia | CPT/HCPCS: 36415; 80053; 80061; 85025 ==

== ENCOUNTER 2019-06-22 18:23 | Inpatient (IN) ==
--- NOTE | 2019-06-22 20:48 | CT ---
Exam: CT of the chest without intravenous contrast. Comparison: Chest x-ray performed 07/22/2018. Reason for exam: Cough and dyspnea. FINDINGS: No pneumothorax, pleural effusion, or focal airspace consolidation. There is a tiny focus of sub-centimeter nodularity in the right upper lobe pleural-based on axial image #8 measuring appro ximately 3 mm. Patchy ground-glass is seen in the left upper lobe on axial image number 34 without evidence of conso lidation The aorta is normal in course and caliber. The heart is not enlarged. Prompt appearing lymph nodes are seen within mediastinum. No suspicious appearing osteoblastic or osteolytic lesions. Impression 1. No pneumothorax, pleural effusion, or focal airspace consolidation. 2. 3 mm nodule in the right upper lobe on axial image #8. 3. Small focus of patchy ground-glass in left upper lobe on axial image number 34 likely inflammator y. Cannot rule out early infection. If clinical concern exists, follow-up imaging may be performed to document resolution
--- NOTE | 2019-06-22 21:20 | ED.PDOC ---
General ED Provider: Dr. HOWARD HERZOG Chief Complaint: Shortness of Air Stated Complaint: ulises been sick and coughing up some thick stuff Time Seen by Physician: 21:19 Mode of Arrival: Walk-In Information Source: Patient Primary Care Provider: MANFRED DOSHI APRN Nursing and Triage Documentation Reviewed and Agree: Yes Does patient meet sepsis criteria?: No System Inflammatory Response Syndrome: Not Applicable Sepsis Protocol: For patient's 13 years and over: Temp is 96.8 and below OR 101 and greater Pulse >90 BPM Resp >20/minute Acutely Altered Mental Status Are patient's symptoms suggestive of a new infection, such as: -Pneumonia -Skin, Soft Tissue -Endocarditis -UTI -Bone, Joint Infection -Implantable Device -Acute Abdominal Infection -Wound Infection -Meningitis -Blood Stream Catheter Infection -Unknown Respiratory Complaint Exam Respiratory Complaint/Exam Onset/Duration: 4 days Symptoms Are: Still present Timing: Constant Initial Severity: Mild Current Severity: Mild Character: Reports Productive cough Associated Signs and Symptoms: Reports Dyspnea, URI and Nasal congestion Home Oxygen Use: No Recent Stress Test: No Recent Echo/LV Function: No Current Antibiotic Use: No Current Asthma Medication Use: Yes Respiratory Distress: None Inadequate Respiratory Effort: No Dysphagia Present: No Stridor Present: No JVD Present: No Accessory Muscle Use: No Retractions: Not Present Diminished Breath Sounds: No Sinus Tenderness: None Differential Diagnoses: Pneumonia Review of Systems Review Of Systems Constitutional: Reports Chills, Fever and Weakness Eyes: Reports No symptoms Ears, Nose, Mouth, Throat: Reports No symptoms Respiratory: Reports Cough and Wheezing Cardiac: Reports No symptoms GI: Reports No symptoms : Reports No symptoms Musculoskeletal: Reports No symptoms Skin: Reports No symptoms Neurological: Reports No symptoms Endocrine: Reports No symptoms Hematologic/Lymphatic: Reports No symptoms All Other Systems: Reviewed and Negative [facility] Medical History Depression Elevated cholesterol Hypertension Schizophrenia Family History 32 MOTHER Cerebrovascular accident 33 FATHER Pulmonary fibrosis, Onset Age: 53 Social History History of recent travel: No Physical Exam Physical Exam Appearance: Well-appearing Ill-appearing: Mild Pain Distress: None Eyes: MAYCO, EOMI and Conjunctiva clear ENT: Ears normal Neck: Supple Respiratory: Crackles, Rhonchi and Wheezes Cardiovascular: RRR GI/: Soft Musculoskeletal: Normal strength Skin: Warm Neurological: Sensation intact, Motor intact, Reflexes intact, Cranial nerves intact, Alert and Oriented Psychiatric: Affect appropriate and Mood appropriate Interpretation Radiology Interpretation Radiology Interpretation By: Radiologist Radiology Results: Positive Exam Interpreted: CT Scan EKG Interpretation Time of EKG #1: 21:17 Rate: Normal Rhythm: Sinus Ectopy: None [place]: NL ST Segment: Normal Interpretation: nsr Critical Care Note Critical Care Note Total Time (mins): 0 Course Course Hematology/Chemistry: 06/22/19 19:27 06/22/19 19:27 Orders, Labs, Meds: Lab Review 06/22/19 06/22/19 06/22/19 19:01 19:27 19:27 WBC 7.99 RBC 4.72 Hgb 14.8 Hct 42.7 MCV 90.5 MCH 31.4 H MCHC 34.7 RDW Coeff of Angelita 13.0 Plt Count 213 Immature Gran % (Auto) 0.3 Neut % (Auto) 44.4 Lymph % (Auto) 43.7 [place] % (Auto) 9.1 Eos % (Auto) 2.1 Baso % (Auto) 0.4 Immature Gran # (Auto) 0.0 Neut # (Auto) 3.6 Lymph # (Auto) 3.5 H [place] # (Auto) 0.7 Eos # (Auto) 0.2 Baso # (Auto) 0.0 Puncture Site [place] O2 Saturation 96.0 ABG pH 7.405 ABG pCO2 41.9 ABG pO2 79.0 L ABG HCO3 26.3 H ABG Total CO2 28 ABG Base Excess 2 Jaspal Test + FiO2 % 21.0 Sodium 140.3 Potassium 3.72 Chloride 104.2 Carbon Dioxide 29.7 Anion Gap 10.12 BUN 11.0 Creatinine 1.10 Estimated GFR (MDRD) 73.00 BUN/Creatinine Ratio 10.00 Glucose 110.7 H Calcium 9.34 Total Bilirubin 0.46 AST 55.9 ALT 38.5 Alkaline Phosphatase 57.7 Total Creatine Kinase 193.4 H CK-MB (CK-2) 1.040 CK-MB (CK-2) % 0.5300 Troponin I < 0.012 NT-Pro-B Natriuret Pep 24.200 Total Protein 7.70 Albumin 4.45 Globulin 3.25 Albumin/Globulin Ratio 1.36 Orders Category Date Time Status ABG DRAW REQUEST Stat CARDIO 06/22/19 19:03 Completed EKG-(ED ONLY) Stat CARDIO 06/22/19 19:01 Completed ABG Stat LAB 06/22/19 19:01 Completed BLOOD CULTURE (ED ONLY) Stat LAB 06/22/19 19:27 Received CBC W/ AUTO DIFF Stat LAB 06/22/19 19:27 Completed COMPREHENSIVE METABOLIC PANEL Stat LAB 06/22/19 19:27 Completed CREATINE KINASE Stat LAB 06/22/19 19:27 Completed NT-PROBNP Stat LAB 06/22/19 19:27 Completed TROPONIN I Stat LAB 06/22/19 19:[address] CHEST W/O CONTRAST Stat RADS 06/22/19 19:01 Completed Vital Signs: Temp Pulse Resp BP Pulse Ox 06/22/19 18:26 98.1 F 93 H 16 145/85 H 95 Discharge Plan Discharge Patient Disposition: ADMITTED INPATIENT Discharge Problem: Pneumonia Prescriptions: No Action vitamin B complex [B-Complex] 1 EACH tablet 1 ea PO DAILY RF: 0 MULTI VITAMIN DAILY 1 EACH tablet 1 ea PO DAILY RF: 0 polyethylene glycol 3350 [Miralax] 17 GM powder in packet 17 g PO DAILY Qty: 1 RF: 1 (DME) Comp-Air Nebulizer Compressor 1 EACH device 1 ea MC Q4-6H Qty: 1 RF: 0 hydroxyzine HCl 25 MG tablet 50 mg PO BID Qty: 90 RF: 2 trazodone 100 MG tablet 100 mg PO BEDTIME Qty: 30 RF: 3 Cogentin 1 mg PO BID Qty: 60 RF: 3 albuterol sulfate 2.5 MG/3 ML solution for nebulization 1 vial inhalation Q4-6H PRNQty: 100 RF: 1 ipratropium bromide 1 VIAL solution 1 vial NEB RTQ6H 90 Days Qty: 937 RF: 0 escitalopram oxalate [Lexapro] 20 MG tablet 20 mg PO BEDTIME RF: 0 vitamin E 400 UNIT capsule 400 unit PO DAILY RF: 0 haloperidol 5 MG tablet 5 mg PO BEDTIME RF: 0 fluticasone propionate 1 SPRAY spray,suspension 2 spray NS DAILY Qty: 1 RF: 11 paliperidone [Invega] 9 MG tablet extended release 24hr 9 mg PO DAILY RF: 0 ranitidine HCl [Zantac] 300 MG tablet 300 mg PO BID Qty: 60 RF: 5 montelukast [Singulair] 10 MG tablet 10 mg PO DAILY Qty: 90 RF: 1 rosuvastatin [Crestor] 20 MG tablet 20 mg PO BEDTIME Qty: 90 RF: 1 Symbicort 10.2 GM HFA aerosol inhaler 2 puff inhalation BID Qty: 3 RF: 2 fenofibrate 160 MG tablet 160 mg PO DAILY Qty: 30 RF: 3 aspirin 81 MG tablet,delayed release (DR/EC) 81 mg PO DAILYWM RF: 0 albuterol sulfate 1 VIAL solution for nebulization 1 vial NEB RTQ4H PRN (Reason: Shortness Of Breath) 30 Days Qty: 120 RF: 0 ED Provider: HOWARD HERZOG Condition: Good
[2019-06-22] MEDS ORDERED: TYLENOL PO PRN (21:24)
[2019-06-22] MEDS ORDERED: ROCEPHIN 1 GM/50 ML D5W 1 GM/50 ML BAG IV STA (21:35)
[2019-06-22 22:13] VITALS: BMI 49.8
[2019-06-22] MEDS ORDERED: ALBUTEROL 0.083% NEB NEB PRN ×2 (22:46)
[2019-06-22] MEDS ORDERED: DESYREL PO STA (22:50)
[2019-06-22] MEDS ORDERED: CRESTOR PO STA (22:52)
[2019-06-22] MEDS ORDERED: ZANTAC PO STA (22:53)
[2019-06-22] MEDS ORDERED: HALDOL PO STA (22:54)
[2019-06-22] MEDS ORDERED: ATARAX PO STA (22:54)
[2019-06-22] MEDS ORDERED: SYMBICORT 160-4.5 MCG INHALER IH STA (22:55)
[2019-06-22] MEDS ORDERED: LEXAPRO PO STA (22:56)
[2019-06-22] MEDS ORDERED: COGENTIN PO STA (22:56)
[2019-06-23] MEDS: DUONEB NEB SCH ×5 (00:29→23:14)
[2019-06-23] MEDS: DOXY-100 100 MG in SODIUM CHLORIDE 100 ML IV SCH ×2 (08:53→21:11)
[2019-06-23] MEDS: SYMBICORT 160-4.5 MCG INHALER IH SCH ×2 (08:53→21:10)
[2019-06-23] MEDS: FLONASE NAS SCH (08:53)
[2019-06-23] MEDS: MIRALAX PO SCH ×2 (08:53→14:31)
[2019-06-23] MEDS: ATARAX PO SCH ×2 (08:54→20:59)
[2019-06-23] MEDS: SINGULAIR PO SCH (08:54)
[2019-06-23] MEDS: BALANCED B-100 PO SCH (08:54)
[2019-06-23] MEDS: ZANTAC PO SCH ×2 (08:54→17:19)
[2019-06-23] MEDS: SOLU-MEDROL 40 MG IVP SCH ×2 (08:54→20:57)
[2019-06-23] MEDS: ASPIRIN EC PO SCH (08:54)
[2019-06-23] MEDS: COGENTIN PO SCH ×2 (08:54→21:00)
[2019-06-23] MEDS: TRIGLIDE PO SCH (08:54)
[2019-06-23] MEDS: VITAMIN D PO SCH (08:55)
[2019-06-23] MEDS: LOVENOX SUBCUT SCH (08:56)
[2019-06-23] MEDS: PALIPERIDONE 9 MG PO SCH (09:15)
[2019-06-23] MEDS: ATROVENT 0.02% NEB NEB SCH ×2 (09:21→09:22)
[2019-06-23] MEDS ORDERED: MIRALAX PO STA (14:32)
[2019-06-23] MEDS: DESYREL PO SCH (20:58)
[2019-06-23] MEDS: CRESTOR PO SCH (21:00)
[2019-06-23] MEDS ORDERED: HALDOL PO SCH (21:00)
[2019-06-23] MEDS: LEXAPRO PO SCH (21:03)
[2019-06-23] MEDS: ROCEPHIN 1 GM/50 ML D5W 1 GM/50 ML BAG IV SCH (22:47)
[2019-06-24] MEDS: DUONEB NEB SCH ×4 (04:37→23:03)
[2019-06-24] MEDS: ZANTAC PO SCH ×2 (06:08→17:08)
[2019-06-24] MEDS: MIRALAX PO SCH (09:09)
[2019-06-24] MEDS: SYMBICORT 160-4.5 MCG INHALER IH SCH ×2 (09:10→20:15)
[2019-06-24] MEDS: PALIPERIDONE 9 MG PO SCH (09:10)
[2019-06-24] MEDS: SOLU-MEDROL 40 MG IVP SCH ×2 (09:11→20:15)
[2019-06-24] MEDS: VITAMIN D PO SCH (09:12)
[2019-06-24] MEDS: DOXY-100 100 MG in SODIUM CHLORIDE 100 ML IV SCH ×2 (09:12→20:15)
[2019-06-24] MEDS: ATARAX PO SCH ×2 (09:13→20:16)
[2019-06-24] MEDS: SINGULAIR PO SCH (09:13)
[2019-06-24] MEDS: TRIGLIDE PO SCH (09:13)
[2019-06-24] MEDS: BALANCED B-100 PO SCH (09:14)
[2019-06-24] MEDS: ASPIRIN EC PO SCH (09:14)
[2019-06-24] MEDS: COGENTIN PO SCH ×2 (09:14→20:16)
[2019-06-24] MEDS: LOVENOX SUBCUT SCH (09:20)
[2019-06-24] MEDS: FLONASE NAS SCH (09:27)
[2019-06-24] MEDS: HALOPERIDOL 5 MG PO SCH ×2 (11:36→20:16)
[2019-06-24] MEDS: DESYREL PO SCH (20:15)
[2019-06-24] MEDS: LEXAPRO PO SCH (20:16)
[2019-06-24] MEDS: CRESTOR PO SCH (20:16)
[2019-06-24] MEDS: ROCEPHIN 1 GM/50 ML D5W 1 GM/50 ML BAG IV SCH (22:29)
[2019-06-25] MEDS: DUONEB NEB SCH ×2 (04:43→11:19)
[2019-06-25] MEDS: ZANTAC PO SCH (05:56)
[2019-06-25] MEDS: DOXY-100 100 MG in SODIUM CHLORIDE 100 ML IV SCH (09:31)
[2019-06-25] MEDS: VITAMIN D PO SCH (09:32)
[2019-06-25] MEDS: BALANCED B-100 PO SCH (09:32)
[2019-06-25] MEDS: TRIGLIDE PO SCH (09:32)
[2019-06-25] MEDS: ATARAX PO SCH (09:32)
[2019-06-25] MEDS: COGENTIN PO SCH (09:32)
[2019-06-25] MEDS: ASPIRIN EC PO SCH (09:33)
[2019-06-25] MEDS: SINGULAIR PO SCH (09:33)
[2019-06-25] MEDS: SYMBICORT 160-4.5 MCG INHALER IH SCH (09:33)
[2019-06-25] MEDS: FLONASE NAS SCH (09:34)
[2019-06-25] MEDS: PALIPERIDONE 9 MG PO SCH (09:34)
[2019-06-25] MEDS: SOLU-MEDROL 40 MG IVP SCH (09:35)
[2019-06-25] MEDS: MIRALAX PO SCH (09:35)
[2019-06-25] MEDS: LOVENOX SUBCUT SCH (09:36)
--- NOTE | 2019-06-25 14:55 | DI ---
EXAM: Frontal chest HISTORY: Follow up pneumonia. FINDINGS: Compared to 07/22/2018. Heart size and mediastinal contour are within normal limits. No acute infiltrates are seen. No vascular congestion. There is no consolidation, visible pleural flui d or pneumothorax. Bones reveal no acute fracture. IMPRESSION: No consolidated pneumonia identified.
[2019-06-25 15:40] VITALS: BP 122/74; TEMP 98
--- NOTE | 2019-07-03 14:51 | HP ---
DATE OF SERVICE: 06/22/19 CHIEF COMPLAINT: Shortness of breath and productive cough. HISTORY OF PRESENT ILLNESS: Mr. Vasquez is a pleasant 43-year-old patient of Meme Whelan APRN, who presented to the Emergency Department on the date of admission with complaints of shortness of breath and productive cough. He complains of 4 days duration of productive cough. Also complains of associated symptoms of dyspnea, upper respiratory symptoms and nasal congestion. He has not been on any current antibiotics. He did report chills, fever, weakness, cough and wheezing. White count was normal on admit of 7.99, hemoglobin, hematocrit stable. Imaging was performed. A CT of the chest was initially done. It did show small focus of patchy ground glass in the left upper lobe on axial image that was likely inflammatory and could not rule out early infection with recommendations for followup imaging to document resolution. Nebulizers were ordered as well as DVT prophylaxis. In addition. Rocephin intravenously was also ordered. Home medications were continued. The patient was admitted for a diagnosis of pneumonia. PAST MEDICAL HISTORY: Hypertension Schizophrenia Depression Elevated cholesterol PAST SURGICAL HISTORY: History of appendectomy Gastrointestinal surgery FAMILY HISTORY: Heart failure and CVA in mother. Father is with heart failure, pulmonary fibrosis and cirrhosis of the liver. Brother with pancreatic cyst and sister with degenerative disease. SOCIAL HISTORY: He smokes 1 1/2 packs of cigarettes per day. He drinks alcohol a few times a month. Denies any substance abuse. MEDICATIONS: (CURRENT HOME) Albuterol Sulfate Nebulizers q.4hr as needed Albuterol Sulfate inhalation every 4 to 6hr as needed Aspirin 81 mg daily with meals Cogentin 1 mg twice a day Lexapro 20 mg at bedtime Fenofibrate 160 mg daily Fluticasone two sprays per nostril daily Haloperidol 5 mg at bedtime Hydroxyzine 50 mg twice a day Ipratropium Keeling one vial neb every 6 hours as needed Singulair 10 mg daily Multivitamin one tablet daily Invega 9 mg daily Miralax 17 gm daily Zantac 300 mg twice a day Crestor 20 mg at bedtime Symbicort two puffs inhalation twice a day Trazodone 100 mg at bedtime Vitamin B Complex one tablet daily Vitamin E 400 mg daily ALLERGIES: NKDA REVIEW OF SYSTEMS: CONSTITUTIONAL: He does report fever and chills. No reports of nightsweats. Denies any weight changes. HEENT: No reports of headache. He does complain of nasal drainage. No reports of sore throat. Denies any blurred vision. CARDIOVASCULAR: Denies any chest pain or irregular rhythm. No orthopnea. He does report some chronic lower extremity swelling.edema. RESPIRATORY: No complaints of any shortness of breath, dyspnea, cough and productive congestion. Does complain of wheezing as well. . GASTROINTESTINAL: Denies any abdominal pain, nausea, vomiting, diarrhea, constipation or blood in the stool or change in stool consistency.. GENITOURINARY: No reports of dysuria, hematuria, nocturia or urinary incontinence. MUSCULOSKELETAL: No reports of unusual muscle pain, joint redness, swelling or any history of problems with. NEUROLOGIC: No reports of dizziness, any fatigue or neurological deficits. PSYCHIATRIC: No complaints of anxiety, depression or mood changes at this time. He does have a history schizophrenia and depression and takes multiple medicines for. ENDOCRINE: No reports of any diabetes mellitus or thyroid disease. INTEGUMENT: No reports of unusual rashes, lesions or skin changes. PHYSICAL EXAMINATION: GENERAL: He is alert, oriented. He is obese. He appears in no acute distress. VITAL SIGNS: On admission Temperature 98.1, pulse 93, blood pressure 145/85, respiratory rate 16, 02 sat 95% on room air. Height 5'9", weight 337 lbs. HEENT: Head normocephalic, atraumatic. Pupils equal/reactive to light. Mucous membranes moist. NECK: Supple. No JVD. No lymphadenopathy. No carotid bruits. . CARDIOVASCULAR: S1, S2 regular rate and rhythm. He does have palpable peripheral pulses to dorsalis pedis pulses, posterior tibialis pulses are not palpable. LUNGS: Wheezing on initial exam. Breathing is stable. ABDOMEN: Soft. Large. Bowel sounds are positive. There is no tenderness, no rebound tenderness or rigidity. EXTREMITIES: 1+ lower extremity edema. NEUROLOGIC: Cranial nerves 2-12 grossly intact without any overt neurological deficit. SKIN: Warm and dry without any overt rashes or lesions. . LABS AND DIAGNOSTIC TESTING: Initially white count 7.99 normal. Hemoglobin/hematocrit normal and platelet count normal. Electrolytes were normal. BUN, creatinine and GFR normal. Glucose mildly elevated nonfasting at 110. Total creatinine kinase was elevated at 193. Blood gases revealed an ABG with p02 of 79, 02 saturation 96%, pH 7.405, pc02 41.9, total c02 was 28. CT scan of the chest was already discussed. ASSESSMENT: 1. PNEUMONIA 2. HISTORY OF COPD WITH ONGOING TOBACCO USE 3. HISTORY OF HYPERTENSION 4. HISTORY OF SCHIZOPHRENIA AND DEPRESSION 5. ELEVATED CHOLESTEROL PLAN: 1. Continue IV antibiotics and nebulizer treatments. 2. Repeat a chest x-ray. 3. Will continue to follow this patient closely to ensure improvement with the pneumonia. 4. Education was given on smoking cessation and the patient verbalizes understanding that smoking cessation is strongly encouraged and he understands the importance of improvement with his health with smoking cessation. We also discussed importance of weight loss with obesity and he also understands that as well and will begin working on both smoking cessation and weight loss. 5. Further orders and recommendations per Dr. Givens. TIME SPENT: GREATER THAN 65 MINUTES. JANETT
--- NOTE | 2019-07-04 09:17 | DS ---
DATE OF SERVICE: 06/25/19 FINAL DIAGNOSES: 1. LEFT UPPER LOBE PNEUMONIA 2. ONGOING TOBACCO USE WITH HISTORY OF COPD 3. HISTORY OF HYPERTENSION 4. HISTORY OF HYPERCHOLESTEROLEMIA 5. HISTORY OF DEPRESSION AND SCHIZOPHRENIA BRIEF HISTORY OF PRESENT ILLNESS/HOSPITAL COURSE: Mr. Vasquez is a pleasant 43-year-old patient of Mmee Whelan APRN that presented to the Emergency Department with increased shortness of breath and productive cough. He also reported fever, chills and weakness. He had a CT of the chest that confirmed pneumonia in the left upper lobe. He was admitted. IV antibiotics were initiated as well as nebulizer treatments. He improved quickly over the course of the stay and felt ready to be discharged to home. DISCHARGE MEDICATIONS: Cefdinir for an additional 7 days. Prescription was called into the pharmacy for Cefdinir 300 mg twice a day for 7 days. He will resume his home medications in addition to the prescription for Cefdinir. ABGs and a chest x-ray were done prior to discharge to home. The chest x-ray was negative. The ABGs were improved. pH 7.462, p02 was improved to 92. The 02 saturation was 98%. He does not need oxygen at discharge. Pertinent labs and diagnostic testing have been discussed. PHYSICAL EXAMINATION: On examination at discharge, his lungs are diminished. He did not have any wheezing on exam. Heart regular rate and rhythm. Prescriptions were sent in to [facility]. Further orders and recommendations per Dr. Givens. DISCHARGE DIET: He is encouraged to lose weight and encouraged a low fat diet. Her verbalized understanding of this. DISCHARGE ACTIVITY: He has been encouraged to increase his activity in order to lose weight. DISCHARGE INSTRUCTIONS: He will followup with Meme Whelan as an outpatient. Followup labs will be discussed at that appointment. Smoking cessation has been encouraged and further orders and labs per Meme Whelan at the outpatient appointment. TIME SPENT: GREATER THAN 30 MINUTES. JANETT
== END 2019-06-25 16:50 | disposition home or self-care (01) | DRG 195 ==
LOC: ED 18:23 → MEDSURG B 21:26
PROVIDERS: ADMIT General Practice; ATTEND General Practice
DX: R06.00 Dyspnea, unspecified; J18.9 Pneumonia, unspecified organism; J06.9 Acute upper respiratory infection, unspecified; Z72.0 Tobacco use; R53.1 Weakness; R09.81 Nasal congestion; R05 Cough; I10 Essential (primary) hypertension; R06.02 Shortness of breath; R50.9 Fever, unspecified; F32.89 Other specified depressive episodes

== ENCOUNTER 2019-10-05 10:55 | Observation (INO) ==
[2019-10-05 11:01] VITALS: BMI 49.5
[2019-10-05] MEDS ORDERED: DUONEB NEB STA (11:11)
[2019-10-05] MEDS ORDERED: NITROSTAT SL STA (11:11)
[2019-10-05] MEDS ORDERED: SOLU-MEDROL 125 MG IVP STA (11:11)
[2019-10-05] MEDS ORDERED: ASPIRIN CHEWABLE PO STA (11:11)
--- NOTE | 2019-10-05 11:17 | ED.PDOC ---
General ED Provider: Dr. STEPAN ALDRIDGE MD Chief Complaint: Chest Pain Stated Complaint: chest pain anterior pressure today, off and on for months, no injury, +short of breath, hx copd Time Seen by Physician: 11:15 Mode of Arrival: Walk-In Information Source: Patient Exam Limitations: No limitations Primary Care Provider: MANFRED DOSHI APRN Nursing and Triage Documentation Reviewed and Agree: Yes Does patient meet sepsis criteria?: No System Inflammatory Response Syndrome: Not Applicable Sepsis Protocol: For patient's 13 years and over: Temp is 96.8 and below OR 101 and greater Pulse >90 BPM Resp >20/minute Acutely Altered Mental Status Are patient's symptoms suggestive of a new infection, such as: -Pneumonia -Skin, Soft Tissue -Endocarditis -UTI -Bone, Joint Infection -Implantable Device -Acute Abdominal Infection -Wound Infection -Meningitis -Blood Stream Catheter Infection -Unknown Cardiovascular Complaint Exam Chest Pain Complaint/Exam Onset: Gradual Duration: mild to mod anterior pressure, nonrad today Symptoms Are: Still present Timing: Intermittent Initial Severity: Mild Current Severity: Mild Location: Reports Midsternal Pain Radiates: Reports None Character: Reports Pressure Review of Systems Review Of Systems Constitutional: Reports No symptoms Eyes: Reports No symptoms Ears, Nose, Mouth, Throat: Reports No symptoms Respiratory: Reports Short of air Cardiac: Reports Chest pain GI: Reports No symptoms Musculoskeletal: Reports No symptoms Skin: Reports No symptoms Neurological: Reports No symptoms All Other Systems: Other [facility] Medical History Cerumen impaction (Acute) Depression Elevated cholesterol Hypertension Schizophrenia Family History Mother Heart failure Cerebrovascular accident Father Heart failure Pulmonary fibrosis, Onset Age: 53 Cirrhosis of liver BROTHER Pancreatic cyst SISTER Degenerative disc disease Social History Smoking and tobacco status: Current every day smoker Tobacco type: cigarettes Smoking packs per day: 1.5 Smoking cigarettes per day: 30.0 Years smoked: 24 Smoking pack-years: 36.00 Tobacco: How many years used: 24 Quit status: considering quitting Smoking risk assessment performed: Yes Counseling given: provider counseling and patient declined Alcohol intake: current Alcohol intake frequency: a few times a month Alcohol type: beer Substance use type: does not use Counseling given: No Marital status: S SINGLE Current occupational status: unemployed and disabled History of recent travel: No Physical Exam Physical Exam Appearance: Reports Well-appearing Ill-appearing: None Pain Distress: None Eyes: Reports EOMI ENT: Reports Nose normal Neck: Supple Respiratory: Reports Airway patent and Wheezes Cardiovascular: Reports RRR GI/: Reports Soft Musculoskeletal: Reports Normal strength Skin: Reports Warm Neurological: Reports Sensation intact Psychiatric: Reports Affect appropriate Interpretation Radiology Interpretation Radiology Interpretation By: Radiologist Radiology Results: No acute changes Exam Interpreted: CXR EKG Interpretation Time of EKG #1: 13:21 Rate: Normal Rhythm: Sinus Interpretation: no stemi Re-Evaluation Re-Evaluation Time of Re-Evaluation: 13:21 Status: Improved Vital Signs Stable: Yes Appearance: NAD Lungs: Clear Skin: Warm and Dry Neuro: Alert and Oriented X3 CV: RRR Additional Comments: admit to tele obs d/w [place] Critical Care Note Critical Care Note Total Time (mins): 0 Course Course Hematology/Chemistry: 10/05/19 12:15 10/05/19 12:15 Orders, Labs, Meds: Lab Review 10/05/19 10/05/19 10/05/19 11:26 11:26 11:26 WBC Cancelled RBC Cancelled Hgb Cancelled Hct Cancelled MCV Cancelled MCH Cancelled MCHC Cancelled RDW Coeff of Angelita Cancelled Plt Count Cancelled Immature Gran % (Auto) Cancelled Neut % (Auto) Cancelled Lymph % (Auto) Cancelled Sargent % (Auto) Cancelled Eos % (Auto) Cancelled Baso % (Auto) Cancelled Immature Gran # (Auto) Cancelled Neut # (Auto) Cancelled Lymph # (Auto) Cancelled Sargent # (Auto) Cancelled Eos # (Auto) Cancelled Baso # (Auto) Cancelled D-Dimer (Manual) Cancelled Sodium Cancelled Potassium Cancelled Chloride Cancelled Carbon Dioxide Cancelled Anion Gap Cancelled BUN Cancelled Creatinine Cancelled Estimated GFR (MDRD) Cancelled BUN/Creatinine Ratio Cancelled Glucose Cancelled Hemoglobin A1c Calcium Cancelled Total Bilirubin Cancelled AST Cancelled ALT Cancelled Alkaline Phosphatase Cancelled Total Creatine Kinase CK-MB (CK-2) CK-MB (CK-2) % Troponin I Cancelled Total Protein Cancelled Albumin Cancelled Globulin Cancelled Albumin/Globulin Ratio Cancelled 10/05/19 10/05/19 10/05/19 12:15 12:15 12:15 WBC 7.49 RBC 4.52 L Hgb 13.9 L Hct 40.5 L MCV 89.6 MCH 30.8 MCHC 34.3 RDW Coeff of Angelita 12.9 Plt Count 198 Immature Gran % (Auto) 0.3 Neut % (Auto) 41.4 L Lymph % (Auto) 46.6 Sargent % (Auto) 8.9 Eos % (Auto) 2.4 Baso % (Auto) 0.4 Immature Gran # (Auto) 0.0 Neut # (Auto) 3.1 Lymph # (Auto) 3.5 H Sargent # (Auto) 0.7 Eos # (Auto) 0.2 Baso # (Auto) 0.0 D-Dimer (Manual) 290.74 Sodium 139.8 Potassium 4.12 Chloride 105.7 Carbon Dioxide 29.5 Anion Gap 8.72 BUN 14.4 Creatinine 1.18 H Estimated GFR (MDRD) 67.00 BUN/Creatinine Ratio 12.20 Glucose 78.3 Hemoglobin A1c Calcium 9.31 Total Bilirubin 0.43 AST 52.9 ALT 35.2 Alkaline Phosphatase 49.4 Total Creatine Kinase 148.2 CK-MB (CK-2) 0.780 CK-MB (CK-2) % 0.5200 Troponin I < 0.012 Total Protein 7.01 Albumin 4.23 Globulin 2.78 Albumin/Globulin Ratio 1.52 10/05/19 12:15 WBC RBC Hgb Hct MCV MCH MCHC RDW Coeff of Angelita Plt Count Immature Gran % (Auto) Neut % (Auto) Lymph % (Auto) Sargent % (Auto) Eos % (Auto) Baso % (Auto) Immature Gran # (Auto) Neut # (Auto) Lymph # (Auto) Sargent # (Auto) Eos # (Auto) Baso # (Auto) D-Dimer (Manual) Sodium Potassium Chloride Carbon Dioxide Anion Gap BUN Creatinine Estimated GFR (MDRD) BUN/Creatinine Ratio Glucose Hemoglobin A1c 5.09 Calcium Total Bilirubin AST ALT Alkaline Phosphatase Total Creatine Kinase CK-MB (CK-2) CK-MB (CK-2) % Troponin I Total Protein Albumin Globulin Albumin/Globulin Ratio Orders Category Date Time Status EKG-(ED ONLY) Stat CARDIO 10/05/19 11:11 Completed EKG-(IP & OP ONLY) DAILY CARDIO 10/06/19 06:00 Ordered EKG-(IP & OP ONLY) DAILY CARDIO 10/07/19 06:00 Ordered NEBULIZER TREATMENT Stat CARDIO 10/05/19 11:12 Completed ACTIVITY .Complete BR CARE 10/05/19 13:22 Completed INTAKE & OUTPUT Q8HR CARE 10/05/19 13:22 Active VITAL SIGNS Q8HR CARE 10/05/19 13:22 Completed CARDIAC DIET DIETARY 10/05/19 Lunch Ordered CBC W/ AUTO DIFF Routine LAB 10/05/19 12:15 Completed COMPREHENSIVE METABOLIC PANEL Routine LAB 10/05/19 12:15 Completed CREATINE KINASE Routine LAB 10/05/19 12:15 Completed D-DIMER Routine LAB 10/05/19 12:15 Completed TROPONIN I Q8H LAB 10/05/19 19:30 Ordered TROPONIN I Q8H LAB 10/06/19 03:30 Ordered TROPONIN I Routine LAB 10/05/19 12:15 Completed Aspirin [Aspirin Chewable] MEDS 10/05/19 11:11 Discontinued 324 mg PO ONCE STA Ipratropium/Albuterol Neb [Duoneb] MEDS 10/05/19 11:11 Discontinued 3 ml NEB ONCE STA Methylprednisolone Sod Succ/Pf [Solu-Medrol 125 mg] MEDS 10/05/19 11:11 Discontinued 125 mg IVP ONCE STA Nitroglycerin [Nitrostat] MEDS 10/05/19 11:11 Discontinued 0.4 mg SL ONCE STA RESUSCITATION STATUS Routine OTHERS 10/05/19 13:22 Ordered CHEST, 1V AP ONLY Stat RADS 10/05/19 11:11 Completed Medications Generic Name Dose Route Start Last Admin Trade Name Freq PRN Reason Stop Dose Admin Acetaminophen 650 mg 10/05/19 14:11 Tylenol PO Q6H PRN mild pain; headache Albuterol/Ipratropium 3 ml 10/05/19 20:00 Duoneb NEB RTQID JULIAN Aspirin 81 mg 10/06/19 08:00 Aspirin Ec PO DAILYWM JULIAN Budesonide 0.5 mg 10/05/19 18:00 Pulmicort 0.5 Mg/2 Ml NEB RTBID JULIAN Fenofibrate 160 mg 10/06/19 09:00 Triglide PO DAILY JULIAN Hydroxyzine HCl 50 mg 10/05/19 21:00 Atarax PO BID JULIAN Sodium Chloride 1,000 mls @ 83.001 mls/hr 10/05/19 15:30 10/05/19 15:03 Sodium Chloride IV 83.001 mls/hr .Q12H3M JULIAN Administration Montelukast Sodium 10 mg 10/06/19 09:00 Singulair PO DAILY [facility] Nicotine 1 patch 10/05/19 14:30 Nicoderm 21 Mg TD DAILY [facility] Nitroglycerin 0.4 mg 10/05/19 14:11 Nitrostat SL Q5MIN X 3 DOSES PRN Chest Pain Non-Formulary Medication 1 mg 10/05/19 21:00 Cogentin PO BID JULIAN Non-Formulary Medication 10 mg 10/05/19 21:00 Haloperidol PO BEDTIME JULIAN Non-Formulary Medication 9 mg 10/06/19 09:00 Paliperidone [Invega] PO DAILY JULIAN Non-Formulary Medication 300 mg 10/05/19 21:00 Ranitidine Hcl [Zantac] PO BID [facility] Rosuvastatin Calcium 20 mg 10/05/19 15:00 Crestor PO BEDTIME [facility] Sodium Chloride 1 syr 10/05/19 21:00 10/05/19 14:44 Saline Flush IVF 1 syr Q8HR JULIAN Administration Trazodone HCl 100 mg 10/05/19 21:00 Desyrel PO BEDTIME [facility] Discontinued Medications Generic Name Dose Route Start Last Admin Trade Name Freq PRN Reason Stop Dose Admin Albuterol/Ipratropium 3 ml 10/05/19 11:11 10/05/19 11:53 Duoneb NEB 10/05/19 11:12 3 ml ONCE STA Administration Aspirin 324 mg 10/05/19 11:11 10/05/19 11:28 Aspirin Chewable PO 10/05/19 11:12 324 mg ONCE STA Administration Sodium Chloride 500 mls @ 83 mls/hr 10/05/19 14:30 Sodium Chloride IV .Q6H2M JULIAN Sodium Chloride 1,000 mls @ 83 mls/hr 10/05/19 14:39 Sodium Chloride IV .Q12H3M [facility] Magnesium Citrate 5 oz 10/05/19 14:42 Citrate Of Magnesia PO 10/05/19 14:43 ONCE STA Methylprednisolone Sodium Succinate 125 mg 10/05/19 11:11 10/05/19 11:26 Solu-Medrol 125 Mg IVP 10/05/19 11:12 125 mg ONCE STA Administration Morphine Sulfate 2 mg 10/05/19 14:49 Morphine 2 Mg/Ml Syringe IVP 10/05/19 14:50 ONCE ONE Nitroglycerin 0.4 mg 10/05/19 11:11 10/05/19 11:25 Nitrostat SL 10/05/19 11:12 0.4 mg ONCE STA Administration Vital Signs: Temp Pulse Resp BP Pulse Ox 10/05/19 10:56 98.3 F 69 20 145/87 H 96 AILYN Risk Score AILYN Risk Score: Risk Score Odds of by 30D 0 0.1 (0.1-0.2) 1 0.3 (0.2-0.3) 2 0.4 (0.3-0.5) 3 0.7 (0.6-0.9) 4 1.2 (1.0-1.5) 5 2.2 (1.9-2.6) 6 3.0 (2.5-3.6) 7 4.8 (3.8-6.1)
--- NOTE | 2019-10-05 11:50 | DI ---
EXAM: CHEST FRONTAL VIEW HISTORY: Chest pain. COMPARISON: 07/24/2019 FINDINGS: Heart size and mediastinum remain within normal limits. Lungs are free of infiltrate. No consolidation or pleural fluid. There is no pneumothorax or acute bony finding. IMPRESSION: No acute cardiopulmonary process.
[2019-10-05 12:19] LABS: HEMATOCRIT 40.5 % (42.0-52.0)
[2019-10-05] MEDS ORDERED: NITROSTAT SL PRN (14:11)
[2019-10-05] MEDS ORDERED: TYLENOL PO PRN (14:11)
[2019-10-05] MEDS ORDERED: SODIUM CHLORIDE 500 ML IV SCH (14:30)
[2019-10-05] MEDS ORDERED: SODIUM CHLORIDE 1,000 ML IV SCH (14:39)
[2019-10-05] MEDS ORDERED: CITRATE OF MAGNESIA PO STA (14:42)
[2019-10-05] MEDS ORDERED: MORPHINE 2 MG/ML SYRINGE IVP ONE (14:49)
[2019-10-05] MEDS ORDERED: CRESTOR PO SCH ×2 (15:00→21:00)
[2019-10-05] MEDS: SODIUM CHLORIDE 1,000 ML IV SCH (15:03)
--- NOTE | 2019-10-05 15:11 | PCM ---
Chief Complaint Chief Complaint: chest pressure for "months" constipation with taking miralax daily History of Present Illness History of Present Illness: Mr Vasquez is a 44 year old male with past medical history significant for hypertension, likely COPD although has not had PFT per pt, dyslipidemia, and schizophrenia who presents to emergency today with complaint of chest pressure. Pt received nitro sublingual in ED with some relief of his chest discomfort. He was also given ASA. He received solumedrol and duoneb treatment for c/o shortness of breath. Pt is admitted to rule out ACS. Pt is examined initially while in the emergency department. He is supine on stretcher and appears to be comfortable. He is on room air. He is not noted to have increased work of breathing. He is not noted to be using acessory muscles to breath. He tells me that he has been having "chest pressure" and points to his left upper chest area for "some months" he is not sure maybe 5 or 6 months. He says the pressure can occur at any time and doesnt' seem to worsen with activity. Resting doesn't make it better. The pressure doesn't move around, doesn't radiate through to his back, jaw, arm. Pressure is not associated with any nausea or sweating. Today the pressure was associated with shortness of breath. Pt states he went to his PCP office today with complaint of constipation with no BM x 3 days with taking miralax daily. While there he expressed concern about the chest pressure. He states he also had an ECHO this morning with Dr Newsome. He says he was told that "one of my heart chambers is enlarged due to me being overweight" but "I didn't have a heart attack". Review of Systems Constitutional: Denies fever, chills, weakness, sweats, fatigue, loss of appetite and other Eyes: Denies blurred vision, double-vision, discharge, itching, pain, redness, photophobia and other (supposed to be weaing glasses but doesn't always wear) Ears: Denies pain, bleeding, drainage, ringing, hearing loss and other Nose: Denies bleeding, congestion, discharge and other Throat: Denies pain, swelling, voice change and other Mouth: Reports other (dry mouth related to some of his medications) Respiratory: Reports shortness of air; Denies cough, wheeze, hemoptysis, pain with breathing and other Cardiovascular: Reports chest pain; Denies left arm pain, diaphoresis, PND, orthopnea, edema, palpitations, syncope and other Gastrointestinal: Reports constipation; Denies abdominal pain, nausea, vomiting, diarrhea, melena, hematemesis, hematochezia, dysphagia and other Neurological: Denies headache, dizziness, seizure, numbness, weakness, speech difficulty, problems with walking, tremor, fainting and other Musculoskeletal: Denies pain, swelling in joints and other Skin: Denies rash, pruritus, lacerations, wounds, bruising and other Hematology: Denies easy bruising, easy bleeding, swollen glands and other Endocrine: Reports weight changes (has been gaining weight); Denies cold intolerance, heat intolerance, excessive thirst, excessive hunger, polyuria and other Psychiatric: Reports depression, sleeplessness and other (schizophrenia) Habits: Reports tobacco use, substance use and alcohol use (smokes cigarettes 1 1/2 ppd; smokes marijuana on occasion; drinks 2 - 3 beers on the weekend) Allergies Allergies Allergy/AdvReac Type Severity Reaction Status Date / Time No Known Allergies Allergy Verified 10/05/19 11:03 [facility] Medical History Cerumen impaction (Acute) Depression Elevated cholesterol Hypertension Schizophrenia Family History Mother Heart failure Cerebrovascular accident Father Heart failure Pulmonary fibrosis, Onset Age: 53 Cirrhosis of liver BROTHER Pancreatic cyst SISTER Degenerative disc disease Social History Smoking and tobacco status: Current every day smoker Tobacco type: cigarettes Smoking packs per day: 1.5 Smoking cigarettes per day: 30.0 Years smoked: 24 Smoking pack-years: 36.00 Tobacco: How many years used: 24 Quit status: considering quitting Smoking risk assessment performed: Yes Counseling given: provider counseling and patient declined Alcohol intake: current Alcohol intake frequency: a few times a month Alcohol t ype: beer Substance use type: does not use Counseling given: No Marital status: S SINGLE Current occupational status: unemployed and disabled History of recent travel: No Medications Medications: Medications Generic Name Dose Route Start Last Admin Trade Name Freq PRN Reason Stop Dose Admin Acetaminophen 650 mg 10/05/19 14:11 Tylenol PO Q6H PRN mild pain; headache Albuterol/Ipratropium 3 ml 10/05/19 20:00 Duoneb [facility]B RTQID [facility] Aspirin 81 mg 10/06/19 08:00 Aspirin Ec PO DAILYWM [facility] Budesonide 0.5 mg 10/05/19 18:00 Pulmicort 0.5 Mg/2 Ml NEB RTBID [facility] Fenofibrate 160 mg 10/06/19 09:00 Triglide PO DAILY [facility] Hydroxyzine HCl 50 mg 10/05/19 21:00 Atarax PO BID [facility] Sodium Chloride 1,000 mls @ 83 mls/hr 10/05/19 14:39 Sodium Chloride IV .Q12H3M [facility] Magnesium Citrate 5 oz 10/05/19 14:42 Citrate Of Magnesia PO 10/05/19 14:43 ONCE STA Montelukast Sodium 10 mg 10/06/19 09:00 Singulair PO DAILY [facility] Morphine Sulfate 2 mg 10/05/19 14:49 Morphine 2 Mg/Ml Syringe IVP 10/05/19 14:50 ONCE ONE Nicotine 1 patch 10/05/19 14:30 Nicoderm 21 Mg TD DAILY [facility] Nitroglycerin 0.4 mg 10/05/19 14:11 Nitrostat SL Q5MIN X 3 DOSES PRN Chest Pain Non-Formulary Medication 1 mg 10/05/19 21:00 Cogentin PO BID [facility] Non-Formulary Medication 10 mg 10/05/19 21:00 Haloperidol PO BEDTIME [facility] Non-Formulary Medication 9 mg 10/06/19 09:00 Paliperidone [Invega] PO DAILY [facility] Non-Formulary Medication 300 mg 10/05/19 21:00 Ranitidine Hcl [Zantac] PO BID [facility] Rosuvastatin Calcium 20 mg 10/05/19 15:00 Crestor PO BEDTIME [facility] Sodium Chloride 1 syr 10/05/19 21:00 10/05/19 14:44 Saline Flush IVF 1 syr Q8HR [facility] Administration Trazodone HCl 100 mg 10/05/19 21:00 Desyrel PO BEDTIME [facility] Body Composition Height: 5 ft 9 in Weight: 335 lb 3.2 oz Body Mass Index (BMI): 49.5 Vital Signs Temperature: 98.1 F Pulse Rate: 76 Respiratory Rate: 20 Blood Pressure: 122/77 O2 Sat by Pulse Oximetry: 93 Physical Examination Appearance: Reports Well-appearing, No pain distress (no obvious distress noted; still c/o chest pressure) and Obese Pain Distress: Mild (chest pressure 3 or 4 on scale 0/10) Eyes: Reports MAYCO, EOMI and Conjunctiva clear Neck: Supple Respiratory: Reports Breath sounds clear, Breath sounds equal and Respirations nonlabored; Denies Airway patent, Breath sounds diminished, Airway obstructed, Crackles, Rhonchi, Wheezes and Retractions Cardiovascular: Reports RRR, Pulses normal and No murmur GI/: Reports Soft, Nontender, Bowel sounds normal and No Organomegaly (difficult to assess due to girth) Musculoskeletal: Reports Normal strength and ROM intact; Denies No edema, No calf tenderness, Limited ROM, Limited strength, Edema and Calf tenderness Skin: Reports Warm, Dry and Normal color Neurological: Reports Sensation intact, Motor intact, Alert and Oriented Psychiatric: Reports Affect appropriate (flat) and Mood appropriate Lab/Tests/Diagnostic Imaging Lab/Tests/Diagnostic Imaging: Lab Review 10/05/19 10/05/19 10/05/19 11:26 11:26 11:26 WBC Cancelled RBC Cancelled Hgb Cancelled Hct Cancelled MCV Cancelled MCH Cancelled MCHC Cancelled RDW Coeff of Angelita Cancelled Plt Count Cancelled Immature Gran % (Auto) Cancelled Neut % (Auto) Cancelled Lymph % (Auto) Cancelled [place] % (Auto) Cancelled Eos % (Auto) Cancelled Baso % (Auto) Cancelled Immature Gran # (Auto) Cancelled Neut # (Auto) Cancelled Lymph # (Auto) Cancelled [place] # (Auto) Cancelled Eos # (Auto) Cancelled Baso # (Auto) Cancelled D-Dimer (Manual) Cancelled Sodium Cancelled Potassium Cancelled Chloride Cancelled Carbon Dioxide Cancelled Anion Gap Cancelled BUN Cancelled Creatinine Cancelled Estimated GFR (MDRD) Cancelled BUN/Creatinine Ratio Cancelled Glucose Cancelled Calcium Cancelled Total Bilirubin Cancelled AST Cancelled ALT Cancelled Alkaline Phosphatase Cancelled Total Creatine Kinase CK-MB (CK-2) CK-MB (CK-2) % Troponin I Cancelled Total Protein Cancelled Albumin Cancelled Globulin Cancelled Albumin/Globulin Ratio Cancelled 10/05/19 10/05/19 10/05/19 12:15 12:15 12:15 WBC 7.49 RBC 4.52 L Hgb 13.9 L Hct 40.5 L MCV 89.6 MCH 30.8 MCHC 34.3 RDW Coeff of Angelita 12.9 Plt Count 198 Immature Gran % (Auto) 0.3 Neut % (Auto) 41.4 L Lymph % (Auto) 46.6 [place] % (Auto) 8.9 Eos % (Auto) 2.4 Baso % (Auto) 0.4 Immature Gran # (Auto) 0.0 Neut # (Auto) 3.1 Lymph # (Auto) 3.5 H [place] # (Auto) 0.7 Eos # (Auto) 0.2 Baso # (Auto) 0.0 D-Dimer (Manual) 290.74 Sodium 139.8 Potassium 4.12 Chloride 105.7 Carbon Dioxide 29.5 Anion Gap 8.72 BUN 14.4 Creatinine 1.18 H Estimated GFR (MDRD) 67.00 BUN/Creatinine Ratio 12.20 Glucose 78.3 Calcium 9.31 Total Bilirubin 0.43 AST 52.9 ALT 35.2 Alkaline Phosphatase 49.4 Total Creatine Kinase 148.2 CK-MB (CK-2) 0.780 CK-MB (CK-2) % 0.5200 Troponin I < 0.012 Total Protein 7.01 Albumin 4.23 Globulin 2.78 Albumin/Globulin Ratio 1.52 Orders Category Date Time Status ADMIT OBSERVATION [PLACE PATIENT OBSERVATION] .TO ADMISSION 10/05/19 13:56 Active MEDSURG (MONITORED BED) EKG-(ED ONLY) Stat CARDIO 10/05/19 11:11 Completed EKG-(IP & OP ONLY) DAILY CARDIO 10/06/19 06:00 Ordered EKG-(IP & OP ONLY) DAILY CARDIO 10/07/19 06:00 Ordered NEBULIZER TREATMENT Routine CARDIO 10/05/19 14:28 Ordered NEBULIZER TREATMENT Stat CARDIO 10/05/19 11:12 Completed ACTIVITY .BR with BRP CARE 10/05/19 14:27 Active ACTIVITY .Complete BR CARE 10/05/19 13:22 Active INSERT SALINE LOCK ONCE CARE 10/05/19 14:12 Active INTAKE & OUTPUT Q8HR CARE 10/05/19 13:22 Active INTAKE & OUTPUT Q8HR CARE 10/05/19 14:12 Ordered INTAKE & OUTPUT Q8HR CARE 10/05/19 14:27 Active Notify RT of Treatment ONCE CARE 10/05/19 14:28 Active TELEMETRY MONITORING TELE CARE 10/05/19 13:57 Active TELEMETRY MONITORING TELE CARE 10/05/19 14:12 Active VITAL SIGNS Q8HR CARE 10/05/19 13:22 Active CARDIAC DIET DIETARY 10/05/19 Dinner Ordered CARDIAC DIET DIETARY 10/05/19 Lunch Ordered BASIC METABOLIC PANEL DAILY@0600 LAB 10/06/19 06:00 Ordered BASIC METABOLIC PANEL DAILY@0600 LAB 10/07/19 06:00 Ordered CBC W/ AUTO DIFF Routine LAB 10/05/19 12:15 Completed COMPREHENSIVE METABOLIC PANEL Routine LAB 10/05/19 12:15 Completed CREATINE KINASE Routine LAB 10/05/19 12:15 Completed D-DIMER Routine LAB 10/05/19 12:15 Completed HEMOGLOBIN A1C Routine LAB 10/05/19 14:58 Ordered TROPONIN I Q8H LAB 10/05/19 14:15 Ordered TROPONIN I Q8H LAB 10/05/19 19:30 Ordered TROPONIN I Q8H LAB 10/05/19 22:15 Ordered TROPONIN I Q8H LAB 10/06/19 03:30 Ordered TROPONIN I Routine LAB 10/05/19 12:15 Completed 0.9 % Sodium Chloride [Saline Flush] MEDS 10/05/19 21:00 Active 1 syr IVF Q8HR Acetaminophen [Tylenol] MEDS 10/05/19 14:11 Active 650 mg PO Q6H PRN Aspirin [Aspirin Chewable] MEDS 10/05/19 11:11 Discontinued 324 mg PO ONCE STA Aspirin [Aspirin EC] MEDS 10/06/19 08:00 Active 81 mg PO DAILYWM Budesonide [Pulmicort 0.5 mg/2 ml] MEDS 10/05/19 18:00 Ordered 0.5 mg NEB RTBID Cogentin MEDS 10/05/19 21:00 Ordered 1 mg PO BID Fenofibrate [Triglide] MEDS 10/06/19 09:00 Ordered 160 mg PO DAILY Hydroxyzine HCl [Atarax] MEDS 10/05/19 21:00 Ordered 50 mg PO BID Ipratropium/Albuterol Neb [Duoneb] MEDS 10/05/19 11:11 Discontinued 3 ml NEB ONCE STA Ipratropium/Albuterol Neb [Duoneb] MEDS 10/05/19 20:00 Ordered 3 ml NEB RTQID Magnesium Citrate [Citrate of Magnesia] MEDS 10/05/19 14:42 Stat 5 oz PO ONCE STA Methylprednisolone Sod Succ/Pf [Solu-Medrol 125 mg] MEDS 10/05/19 11:11 Discontinued 125 mg IVP ONCE STA Montelukast Sodium [Singulair] MEDS 10/06/19 09:00 Ordered 10 mg PO DAILY Morphine Sulfate [Morphine 2 mg/ml Syringe] MEDS 10/05/19 14:49 Once 2 mg IVP ONCE ONE Nicotine 21 mg [Nicoderm 21 mg] MEDS 10/05/19 14:30 Ordered 1 patch TD DAILY Nitroglycerin [Nitrostat] MEDS 10/05/19 11:11 Discontinued 0.4 mg SL ONCE STA Nitroglycerin [Nitrostat] MEDS 10/05/19 14:11 Active 0.4 mg SL Q5MIN X 3 DOSES PRN Rosuvastatin Calcium [Crestor] MEDS 10/05/19 15:00 Ordered 20 mg PO BEDTIME Sodium Chloride 0.9% [Sodium Chloride] 1,000 ml MEDS 10/05/19 14:39 Ordered IV 83 mls/hr Sodium Chloride 0.9% [Sodium Chloride] 500 ml MEDS 10/05/19 14:30 Ordered IV 83 mls/hr Trazodone HCl [Desyrel] MEDS 10/05/19 21:00 Ordered 100 mg PO BEDTIME haloperidol MEDS 10/05/19 21:00 Ordered 10 mg PO BEDTIME paliperidone [Invega] MEDS 10/06/19 09:00 Ordered 9 mg PO DAILY ranitidine HCl [Zantac] MEDS 10/05/19 21:00 Ordered 300 mg PO BID RESUSCITATION STATUS Routine OTHERS 10/05/19 13:22 Ordered CHEST, 1V AP ONLY Stat RADS 10/05/19 11:11 Completed Medications Generic Name Dose Route Start Last Admin Trade Name Freq PRN Reason Stop Dose Admin Acetaminophen 650 mg 10/05/19 14:11 Tylenol PO Q6H PRN mild pain; headache Albuterol/Ipratropium 3 ml 10/05/19 20:00 Duoneb NEB RTQID JULIAN Aspirin 81 mg 10/06/19 08:00 Aspirin Ec PO DAILYWM JULIAN Budesonide 0.5 mg 10/05/19 18:00 Pulmicort 0.5 Mg/2 Ml NEB RTBID JULIAN Fenofibrate 160 mg 10/06/19 09:00 Triglide PO DAILY [facility] Hydroxyzine HCl 50 mg 10/05/19 21:00 Atarax PO BID [facility] Sodium Chloride 1,000 mls @ 83 mls/hr 10/05/19 14:39 Sodium Chloride IV .Q12H3M [facility] Magnesium Citrate 5 oz 10/05/19 14:42 Citrate Of Magnesia PO 10/05/19 14:43 ONCE STA Montelukast Sodium 10 mg 10/06/19 09:00 Singulair PO DAILY [facility] Morphine Sulfate 2 mg 10/05/19 14:49 Morphine 2 Mg/Ml Syringe IVP 10/05/19 14:50 ONCE ONE Nicotine 1 patch 10/05/19 14:30 Nicoderm 21 Mg TD DAILY [facility] Nitroglycerin 0.4 mg 10/05/19 14:11 Nitrostat SL Q5MIN X 3 DOSES PRN Chest Pain Non-Formulary Medication 1 mg 10/05/19 21:00 Cogentin PO BID [facility] Non-Formulary Medication 10 mg 10/05/19 21:00 Haloperidol PO BEDTIME JULIAN Non-Formulary Medication 9 mg 10/06/19 09:00 Paliperidone [Invega] PO DAILY [facility] Non-Formulary Medication 300 mg 10/05/19 21:00 Ranitidine Hcl [Zantac] PO BID [facility] Rosuvastatin Calcium 20 mg 10/05/19 15:00 Crestor PO BEDTIME [facility] Sodium Chloride 1 syr 10/05/19 21:00 10/05/19 14:44 Saline Flush IVF 1 syr Q8HR JULIAN Administration Trazodone HCl 100 mg 10/05/19 21:00 Desyrel PO BEDTIME JULIAN Discontinued Medications Generic Name Dose Route Start Last Admin Trade Name Freq PRN Reason Stop Dose Admin Albuterol/Ipratropium 3 ml 10/05/19 11:11 10/05/19 11:53 Duoneb NEB 10/05/19 11:12 3 ml ONCE STA Administration Aspirin 324 mg 10/05/19 11:11 10/05/19 11:28 Aspirin Chewable PO 10/05/19 11:12 324 mg ONCE STA Administration Sodium Chloride 500 mls @ 83 mls/hr 10/05/19 14:30 Sodium Chloride IV .Q6H2M [facility] Methylprednisolone Sodium Succinate 125 mg 10/05/19 11:11 10/05/19 11:26 Solu-Medrol 125 Mg IVP 10/05/19 11:12 125 mg ONCE STA Administration Nitroglycerin 0.4 mg 10/05/19 11:11 10/05/19 11:25 Nitrostat SL 10/05/19 11:12 0.4 mg ONCE STA Administration Assessment (1) Chest pressure: Status: Acute Code(s): R07.89 - Other chest pain SNOMED Code(s): 596501035 (2) Constipation: Status: Acute Code(s): K59.00 - Constipation, unspecified SNOMED Code(s): 13045581 (3) Essential (primary) hypertension: Status: Chronic Code(s): I10 - Essential (primary) hypertension SNOMED Code(s): 16029561 (4) COPD with exacerbation: Status: Acute Code(s): J44.1 - Chronic obstructive pulmonary disease with (acute) exacerbation SNOMED Code(s): 463586510 (5) Acute kidney injury (nontraumatic): Status: Acute Code(s): N17.9 - Acute kidney failure, unspecified SNOMED Code(s): 968089124338472 (6) Tobacco use disorder, severe, dependence: Status: Acute Code(s): F17.200 - Nicotine dependence, unspecified, uncomplicated SNOMED Code(s): 00305030 (7) Morbid obesity with BMI of 45.0-49.9, adult: Status: Acute Code(s): E66.01 - Morbid (severe) obesity due to excess calories; Z68.42 - Body mass index (BMI) 45.0-49.9, adult SNOMED Code(s): 046338536 Plan Plan: EKG sinus rhythm with nonspecific flattening of [place];Initial troponin <0.012; Total CK and CKMB wnl; D dimer 290 wnl; BP was slightly elevated but improved with SL ntg; otherwise vital signs/labs stable will obtain trop x 2 q8hrs; morphine 2mg IV push x 1 for continue c/o chest pressure; offered by nursing staff but pt declined stating didn't like how it makes him feel; will try toradol 15mg IVP x 1 although pt denies any trauma just for its pain relieving effects; repeat EKG if has changes/worsening of symptoms; repeat ntg SL prn with return/worsening of chest pain spoke with Dr Newsome about pts ECHO, states pt has LVH EF slightly decreased at 50; states pt may have mild nonischemic cardiomyopathy and pt would benefit from outpt dobutamine stress ECHO; will try to arrange for 10/08/2019 pt noted to have some mild LEONA likely due to volume contraction/dehydration; will give IV fluids while in house; review of previous labs show that Cr baseline around 1.09 likely mild/moderate COPD exarcerbation, pt received solumedrol and duoneb in emergency. will cont duonebs, hold symbicort, give pulmicort nebs; room air sat >90% so oxygen currently; pt would benefit from outpatiente PFT to determine is pulmonary capacity constipation on miralax per pt; will hold miralax for now, give magnesium citrate one bottle, continue colace daily - await response pt not on any bp medications currently. initial BP elevated at 145/87 but improved after receiving sublingual nitro; labetalol prn with parameters ordered; might benefit from starting BP med due to c/o chest pain and other co- mrobid conditions and risk factors for coronary artery disease. pt will f/u with PCP for further discussion. tobacco use disorder, counseled on cessation; nicotine patch will be available to pt morbid obesity, counseled on life style changes such as reducing portion size and being more mobile. pt states he feels some of his weight gain is due to his mental health medications. he will speak with his doctor on next visit. insomnia, related to pts mental health, states his haldol dose was recently increased and seems to be helping his sleep [facility] Medical History Cerumen impaction (Acute) Depression Elevated cholesterol Hypertension Schizophrenia Family History Mother Heart failure Cerebrovascular accident Father Heart failure Pulmonary fibrosis, Onset Age: 53 Cirrhosis of liver BROTHER Pancreatic cyst SISTER Degenerative disc disease Social History Smoking and tobacco status: Current every day smoker Tobacco type: cigarettes Smoking packs per day: 1.5 Smoking cigarettes per day: 30.0 Years smoked: 24 Smoking pack-years: 36.00 Tobacco: How many years used: 24 Quit status: considering quitting Smoking risk assessment performed: Yes Counseling given: provider counseling and patient declined Alcohol intake: current Alcohol intake frequency: a few times a month Alcohol type: beer Substance use type: does not use Counseling given: No Marital status: S SINGLE Current occupational status: unemployed and disabled History of recent travel: No
[2019-10-05] MEDS: NICODERM 21 MG TD SCH (15:19)
[2019-10-05] MEDS ORDERED: TRANDATE IVP PRN (16:00)
[2019-10-05] MEDS ORDERED: TORADOL IVP STA ×2 (16:01→16:29)
--- NOTE | 2019-10-05 16:23 | PCM ---
Allergies Allergies Allergy/AdvReac Type Severity Reaction Status Date / Time No Known Allergies Allergy Verified 10/05/19 11:03 PFSH Medical History Cerumen impaction (Acute) Depression Elevated cholesterol Hypertension Schizophrenia Family History Mother Heart failure Cerebrovascular accident Father Heart failure Pulmonary fibrosis, Onset Age: 53 Cirrhosis of liver BROTHER Pancreatic cyst SISTER Degenerative disc disease Social History Smoking and tobacco status: Current every day smoker Tobacco type: cigarettes Smoking packs per day: 1.5 Smoking cigarettes per day: 30.0 Years smoked: 24 Smoking pack-years: 36.00 Tobacco: How many years used: 24 Quit status: considering quitting Smoking risk assessment performed: Yes Counseling given: provider counseling and patient declined Alcohol intake: current Alcohol intake frequency: a few times a month Alcohol type: beer Substance use type: does not use Counseling given: No Marital status: S SINGLE Current occupational status: unemployed and disabled History of recent travel: No Medications Medications: Medications Generic Name Dose Route Start Last Admin Trade Name Freq PRN Reason Stop Dose Admin Acetaminophen 650 mg 10/05/19 14:11 Tylenol PO Q6H PRN mild pain; headache Albuterol/Ipratropium 3 ml 10/05/19 20:00 Duoneb NEB RTQID [facility] Aspirin 81 mg 10/06/19 08:00 Aspirin Ec PO DAILYWM JULIAN Budesonide 0.5 mg 10/05/19 18:00 Pulmicort 0.5 Mg/2 Ml NEB RTBID JULIAN Fenofibrate 160 mg 10/06/19 09:00 Triglide PO DAILY JULIAN Hydroxyzine HCl 50 mg 10/05/19 21:00 Atarax PO BID JULIAN Sodium Chloride 1,000 mls @ 83.001 mls/hr 10/05/19 15:30 10/05/19 15:03 Sodium Chloride IV 83.001 mls/hr .Q12H3M JULIAN Administration Ketorolac Tromethamine 15 mg 10/05/19 16:01 Toradol IVP 10/05/19 16:02 ONCE STA Labetalol HCl 10 mg 10/05/19 16:00 Trandate IVP DIRECTED JULIAN Montelukast Sodium 10 mg 10/06/19 09:00 Singulair PO DAILY JULIAN Nicotine 1 patch 10/05/19 14:30 10/05/19 15:19 Nicoderm 21 Mg TD 1 patch DAILY JULIAN Administration Nitroglycerin 0.4 mg 10/05/19 14:11 Nitrostat SL Q5MIN X 3 DOSES PRN Chest Pain Non-Formulary Medication 1 mg 10/05/19 21:00 Cogentin PO BID JULIAN Non-Formulary Medication 10 mg 10/05/19 21:00 Haloperidol PO BEDTIME JULIAN Non-Formulary Medication 9 mg 10/06/19 09:00 Paliperidone [Invega] PO DAILY JULIAN Non-Formulary Medication 300 mg 10/05/19 21:00 Ranitidine Hcl [Zantac] PO BID JULIAN Rosuvastatin Calcium 20 mg 10/05/19 21:00 Crestor PO BEDTIME JULIAN Sodium Chloride 1 syr 10/05/19 21:00 10/05/19 14:44 Saline Flush IVF 1 syr Q8HR JULIAN Administration Trazodone HCl 100 mg 10/05/19 21:00 Desyrel PO BEDTIME [facility] Body Composition Height: 5 ft 9 in Weight: 335 lb 3.2 oz Body Mass Index (BMI): 49.5 Vital Signs Temperature: 98.1 F Pulse Rate: 76 Respiratory Rate: 20 Blood Pressure: 122/77 O2 Sat by Pulse Oximetry: 93 Lab/Tests/Diagnostic Imaging Lab/Tests/Diagnostic Imaging: Lab Review 10/05/19 10/05/19 10/05/19 11:26 11:26 11:26 WBC Cancelled RBC Cancelled Hgb Cancelled Hct Cancelled MCV Cancelled MCH Cancelled MCHC Cancelled RDW Coeff of Angelita Cancelled Plt Count Cancelled Immature Gran % (Auto) Cancelled Neut % (Auto) Cancelled Lymph % (Auto) Cancelled [place] % (Auto) Cancelled Eos % (Auto) Cancelled Baso % (Auto) Cancelled Immature Gran # (Auto) Cancelled Neut # (Auto) Cancelled Lymph # (Auto) Cancelled [place] # (Auto) Cancelled Eos # (Auto) Cancelled Baso # (Auto) Cancelled D-Dimer (Manual) Cancelled Sodium Cancelled Potassium Cancelled Chloride Cancelled Carbon Dioxide Cancelled Anion Gap Cancelled BUN Cancelled Creatinine Cancelled Estimated GFR (MDRD) Cancelled BUN/Creatinine Ratio Cancelled Glucose Cancelled Hemoglobin A1c Calcium Cancelled Total Bilirubin Cancelled AST Cancelled ALT Cancelled Alkaline Phosphatase Cancelled Total Creatine Kinase CK-MB (CK-2) CK-MB (CK-2) % Troponin I Cancelled Total Protein Cancelled Albumin Cancelled Globulin Cancelled Albumin/Globulin Ratio Cancelled 10/05/19 10/05/19 10/05/19 12:15 12:15 12:15 WBC 7.49 RBC 4.52 L Hgb 13.9 L Hct 40.5 L MCV 89.6 MCH 30.8 MCHC 34.3 RDW Coeff of Angelita 12.9 Plt Count 198 Immature Gran % (Auto) 0.3 Neut % (Auto) 41.4 L Lymph % (Auto) 46.6 [place] % (Auto) 8.9 Eos % (Auto) 2.4 Baso % (Auto) 0.4 Immature Gran # (Auto) 0.0 Neut # (Auto) 3.1 Lymph # (Auto) 3.5 H [place] # (Auto) 0.7 Eos # (Auto) 0.2 Baso # (Auto) 0.0 D-Dimer (Manual) 290.74 Sodium 139.8 Potassium 4.12 Chloride 105.7 Carbon Dioxide 29.5 Anion Gap 8.72 BUN 14.4 Creatinine 1.18 H Estimated GFR (MDRD) 67.00 BUN/Creatinine Ratio 12.20 Glucose 78.3 Hemoglobin A1c Calcium 9.31 Total Bilirubin 0.43 AST 52.9 ALT 35.2 Alkaline Phosphatase 49.4 Total Creatine Kinase 148.2 CK-MB (CK-2) 0.780 CK-MB (CK-2) % 0.5200 Troponin I < 0.012 Total Protein 7.01 Albumin 4.23 Globulin 2.78 Albumin/Globulin Ratio 1.52 10/05/19 12:15 WBC RBC Hgb Hct MCV MCH MCHC RDW Coeff of Angelita Plt Count Immature Gran % (Auto) Neut % (Auto) Lymph % (Auto) [place] % (Auto) Eos % (Auto) Baso % (Auto) Immature Gran # (Auto) Neut # (Auto) Lymph # (Auto) [place] # (Auto) Eos # (Auto) Baso # (Auto) D-Dimer (Manual) Sodium Potassium Chloride Carbon Dioxide Anion Gap BUN Creatinine Estimated GFR (MDRD) BUN/Creatinine Ratio Glucose Hemoglobin A1c 5.09 Calcium Total Bilirubin AST ALT Alkaline Phosphatase Total Creatine Kinase CK-MB (CK-2) CK-MB (CK-2) % Troponin I Total Protein Albumin Globulin Albumin/Globulin Ratio Orders Category Date Time Status ADMIT OBSERVATION [PLACE PATIENT OBSERVATION] .TO ADMISSION 10/05/19 13:56 Active MEDSURG (MONITORED BED) EKG-(ED ONLY) Stat CARDIO 10/05/19 11:11 Completed EKG-(IP & OP ONLY) DAILY CARDIO 10/06/19 06:00 Ordered EKG-(IP & OP ONLY) DAILY CARDIO 10/07/19 06:00 Ordered NEBULIZER TREATMENT Routine CARDIO 10/05/19 14:28 Active NEBULIZER TREATMENT Stat CARDIO 10/05/19 11:12 Completed ACTIVITY .BR with BRP CARE 10/05/19 14:27 Active ACTIVITY .Complete BR CARE 10/05/19 13:22 Active INSERT SALINE LOCK ONCE CARE 10/05/19 14:12 Active INTAKE & OUTPUT Q8HR CARE 10/05/19 13:22 Active INTAKE & OUTPUT Q8HR CARE 10/05/19 14:12 Ordered INTAKE & OUTPUT Q8HR CARE 10/05/19 14:27 Active Notify RT of Treatment ONCE CARE 10/05/19 14:28 Active TELEMETRY MONITORING TELE CARE 10/05/19 13:57 Active TELEMETRY MONITORING TELE CARE 10/05/19 14:12 Active VITAL SIGNS Q8HR CARE 10/05/19 13:22 Active CARDIAC DIET DIETARY 10/05/19 Dinner Ordered CARDIAC DIET DIETARY 10/05/19 Lunch Ordered BASIC METABOLIC PANEL DAILY@0600 LAB 10/06/19 06:00 Ordered BASIC METABOLIC PANEL DAILY@0600 LAB 10/07/19 06:00 Ordered CBC W/ AUTO DIFF Routine LAB 10/05/19 12:15 Completed COMPREHENSIVE METABOLIC PANEL Routine LAB 10/05/19 12:15 Completed CREATINE KINASE Routine LAB 10/05/19 12:15 Completed D-DIMER Routine LAB 10/05/19 12:15 Completed HEMOGLOBIN A1C Routine LAB 10/05/19 12:15 Completed TROPONIN I Q8H LAB 10/05/19 19:30 Ordered TROPONIN I Q8H LAB 10/05/19 22:15 Ordered TROPONIN I Q8H LAB 10/06/19 03:30 Ordered TROPONIN I Routine LAB 10/05/19 12:15 Completed 0.9 % Sodium Chloride [Saline Flush] MEDS 10/05/19 21:00 Active 1 syr IVF Q8HR Acetaminophen [Tylenol] MEDS 10/05/19 14:11 Active 650 mg PO Q6H PRN Aspirin [Aspirin Chewable] MEDS 10/05/19 11:11 Discontinued 324 mg PO ONCE STA Aspirin [Aspirin EC] MEDS 10/06/19 08:00 Active 81 mg PO DAILYWM Budesonide [Pulmicort 0.5 mg/2 ml] MEDS 10/05/19 18:00 Active 0.5 mg NEB RTBID Cogentin MEDS 10/05/19 21:00 Active 1 mg PO BID Fenofibrate [Triglide] MEDS 10/06/19 09:00 Active 160 mg PO DAILY Hydroxyzine HCl [Atarax] MEDS 10/05/19 21:00 Active 50 mg PO BID Ipratropium/Albuterol Neb [Duoneb] MEDS 10/05/19 11:11 Discontinued 3 ml NEB ONCE STA Ipratropium/Albuterol Neb [Duoneb] MEDS 10/05/19 20:00 Active 3 ml NEB RTQID Ketorolac Tromethamine [Toradol] MEDS 10/05/19 16:01 Stat 15 mg IVP ONCE STA Labetalol HCl [Trandate] MEDS 10/05/19 16:00 Ordered 10 mg IVP DIRECTED Magnesium Citrate [Citrate of Magnesia] MEDS 10/05/19 14:42 Discontinued 5 oz PO ONCE STA Methylprednisolone Sod Succ/Pf [Solu-Medrol 125 mg] MEDS 10/05/19 11:11 Discontinued 125 mg IVP ONCE STA Montelukast Sodium [Singulair] MEDS 10/06/19 09:00 Active 10 mg PO DAILY Morphine Sulfate [Morphine 2 mg/ml Syringe] MEDS 10/05/19 14:49 Discontinued 2 mg IVP ONCE ONE Nicotine 21 mg [Nicoderm 21 mg] MEDS 10/05/19 14:30 Active 1 patch TD DAILY Nitroglycerin [Nitrostat] MEDS 10/05/19 11:11 Discontinued 0.4 mg SL ONCE STA Nitroglycerin [Nitrostat] MEDS 10/05/19 14:11 Active 0.4 mg SL Q5MIN X 3 DOSES PRN Rosuvastatin Calcium [Crestor] MEDS 10/05/19 15:00 Discontinued 20 mg PO BEDTIME Rosuvastatin Calcium [Crestor] MEDS 10/05/19 21:00 Active 20 mg PO BEDTIME Sodium Chloride 0.9% [Sodium Chloride] 1,000 ml MEDS 10/05/19 14:39 Discontinued IV 83 mls/hr Sodium Chloride 0.9% [Sodium Chloride] 1,000 ml MEDS 10/05/19 15:30 Active IV 83.001 mls/hr Sodium Chloride 0.9% [Sodium Chloride] 500 ml MEDS 10/05/19 14:30 Ordered IV 83 mls/hr Trazodone HCl [Desyrel] MEDS 10/05/19 21:00 Active 100 mg PO BEDTIME haloperidol MEDS 10/05/19 21:00 Ordered 10 mg PO BEDTIME paliperidone [Invega] MEDS 10/06/19 09:00 Ordered 9 mg PO DAILY ranitidine HCl [Zantac] MEDS 10/05/19 21:00 Active 300 mg PO BID RESUSCITATION STATUS Routine OTHERS 10/05/19 13:22 Ordered CHEST, 1V AP ONLY Stat RADS 10/05/19 11:11 Completed Medications Generic Name Dose Route Start Last Admin Trade Name Freq PRN Reason Stop Dose Admin Acetaminophen 650 mg 10/05/19 14:11 Tylenol PO Q6H PRN mild pain; headache Albuterol/Ipratropium 3 ml 10/05/19 20:00 Duoneb NEB RTQID JULIAN Aspirin 81 mg 10/06/19 08:00 Aspirin Ec PO DAILYWM JULIAN Budesonide 0.5 mg 10/05/19 18:00 Pulmicort 0.5 Mg/2 Ml NEB RTBID JULIAN Fenofibrate 160 mg 10/06/19 09:00 Triglide PO DAILY JULIAN Hydroxyzine HCl 50 mg 10/05/19 21:00 Atarax PO BID JULIAN Sodium Chloride 1,000 mls @ 83.001 mls/hr 10/05/19 15:30 10/05/19 15:03 Sodium Chloride IV 83.001 mls/hr .Q12H3M JULIAN Administration Ketorolac Tromethamine 15 mg 10/05/19 16:01 Toradol IVP 10/05/19 16:02 ONCE STA Labetalol HCl 10 mg 10/05/19 16:00 Trandate IVP DIRECTED JULIAN Montelukast Sodium 10 mg 10/06/19 09:00 Singulair PO DAILY [facility] Nicotine 1 patch 10/05/19 14:30 10/05/19 15:19 Nicoderm 21 Mg TD 1 patch DAILY JULIAN Administration Nitroglycerin 0.4 mg 10/05/19 14:11 Nitrostat SL Q5MIN X 3 DOSES PRN Chest Pain Non-Formulary Medication 1 mg 10/05/19 21:00 Cogentin PO BID JULIAN Non-Formulary Medication 10 mg 10/05/19 21:00 Haloperidol PO BEDTIME JULIAN Non-Formulary Medication 9 mg 10/06/19 09:00 Paliperidone [Invega] PO DAILY [facility] Non-Formulary Medication 300 mg 10/05/19 21:00 Ranitidine Hcl [Zantac] PO BID [facility] Rosuvastatin Calcium 20 mg 10/05/19 21:00 Crestor PO BEDTIME [facility] Sodium Chloride 1 syr 10/05/19 21:00 10/05/19 14:44 Saline Flush IVF 1 syr Q8HR [facility] Administration Trazodone HCl 100 mg 10/05/19 21:00 Desyrel PO BEDTIME [facility] Discontinued Medications Generic Name Dose Route Start Last Admin Trade Name Freq PRN Reason Stop Dose Admin Albuterol/Ipratropium 3 ml 10/05/19 11:11 10/05/19 11:53 Duoneb NEB 10/05/19 11:12 3 ml ONCE STA Administration Aspirin 324 mg 10/05/19 11:11 10/05/19 11:28 Aspirin Chewable PO 10/05/19 11:12 324 mg ONCE STA Administration Sodium Chloride 500 mls @ 83 mls/hr 10/05/19 14:30 10/05/19 15:00 Sodium Chloride IV Not Given .Q6H2M [facility] Sodium Chloride 1,000 mls @ 83 mls/hr 10/05/19 14:39 10/05/19 15:00 Sodium Chloride IV 83 mls/hr .Q12H3M JULIAN Administration Magnesium Citrate 5 oz 10/05/19 14:42 10/05/19 15:17 Citrate Of Magnesia PO 10/05/19 14:43 5 oz ONCE STA Administration Methylprednisolone Sodium Succinate 125 mg 10/05/19 11:11 10/05/19 11:26 Solu-Medrol 125 Mg IVP 10/05/19 11:12 125 mg ONCE STA Administration Morphine Sulfate 2 mg 10/05/19 14:49 Morphine 2 Mg/Ml Syringe IVP 10/05/19 14:50 ONCE ONE Nitroglycerin 0.4 mg 10/05/19 11:11 10/05/19 11:25 Nitrostat SL 10/05/19 11:12 0.4 mg ONCE STA Administration Rosuvastatin Calcium 20 mg 10/05/19 15:00 10/05/19 15:27 Crestor PO Not Given BEDTIME JULIAN Assessment (1) Chest pressure: Status: Acute Code(s): R07.89 - Other chest pain SNOMED Code(s): 128421771 (2) Constipation: Status: Acute Code(s): K59.00 - Constipation, unspecified SNOMED Code(s): 67000299 (3) Essential (primary) hypertension: Status: Chronic Code(s): I10 - Essential (primary) hypertension SNOMED Code(s): 92207385 (4) COPD with exacerbation: Status: Acute Code(s): J44.1 - Chronic obstructive pulmonary disease with (acute) exacerbation SNOMED Code(s): 115280738 (5) Acute kidney injury (nontraumatic): Status: Acute Code(s): N17.9 - Acute kidney failure, unspecified SNOMED Code(s): 148113874285889 (6) Tobacco use disorder, severe, dependence: Status: Acute Code(s): F17.200 - Nicotine dependence, unspecified, uncomplicated SNOMED Code(s): 61054020 (7) Morbid obesity with BMI of 45.0-49.9, adult: Status: Acute Code(s): E66.01 - Morbid (severe) obesity due to excess calories; Z68.42 - Body mass index (BMI) 45.0-49.9, adult SNOMED Code(s): 680361954 [facility] Medical History Cerumen impaction (Acute) Depression Elevated cholesterol Hypertension Schizophrenia Family History Mother Heart failure Cerebrovascular accident Father Heart failure Pulmonary fibrosis, Onset Age: 53 Cirrhosis of liver BROTHER Pancreatic cyst SISTER Degenerative disc disease Social History Smoking and tobacco status: Current every day smoker Tobacco type: cigarettes Smoking packs per day: 1.5 Smoking cigarettes per day: 30.0 Years smoked: 24 Smoking pack-years: 36.00 Tobacco: How many years used: 24 Quit status: considering quitting Smoking risk assessment performed: Yes Counseling given: provider counseling and patient declined Alcohol intake: current Alcohol intake frequency: a few times a month Alcohol type: beer Substance use type: does not use Counseling given: No Marital status: S SINGLE Current occupational status: unemployed and disabled History of recent travel: No
[2019-10-05] MEDS: PULMICORT 0.5 MG/2 ML NEB SCH (19:35)
[2019-10-05] MEDS: DUONEB NEB SCH (19:35)
[2019-10-05] MEDS ORDERED: DESYREL PO SCH (21:00)
[2019-10-05] MEDS ORDERED: HALOPERIDOL 10 MG PO SCH (21:00)
[2019-10-05] MEDS: ATARAX PO SCH (23:47)
[2019-10-05] MEDS: COGENTIN 1 MG PO SCH (23:53)
[2019-10-05] MEDS: NON-FORMULARY MEDICATION (Ranitidine Hcl [Zantac] 300 MG) PO SCH (23:54)
[2019-10-06] MEDS: SODIUM CHLORIDE 1,000 ML IV SCH (02:10)
[2019-10-06] MEDS: DUONEB NEB SCH ×2 (04:55→10:00)
[2019-10-06] MEDS: PULMICORT 0.5 MG/2 ML NEB SCH (04:55)
[2019-10-06 05:40] VITALS: BP 131/81; TEMP 98.2
[2019-10-06] MEDS ORDERED: ASPIRIN EC PO SCH (08:00)
[2019-10-06] MEDS: NON-FORMULARY MEDICATION (Ranitidine Hcl [Zantac] 300 MG) PO SCH (08:45)
[2019-10-06] MEDS: ATARAX PO SCH (08:45)
[2019-10-06] MEDS: NICODERM 21 MG TD SCH (08:48)
[2019-10-06] MEDS: COGENTIN 1 MG PO SCH (08:49)
[2019-10-06] MEDS ORDERED: SINGULAIR PO SCH (09:00)
[2019-10-06] MEDS ORDERED: PALIPERIDONE 9 MG PO SCH (09:00)
[2019-10-06] MEDS ORDERED: TRIGLIDE PO SCH (09:00)
[2019-10-06] MEDS ORDERED: [UNRECOGNIZED DRUG - OTHER] MC PRN (09:26)
[2019-10-06] MEDS ORDERED: ALBUTEROL 0.083% NEB NEB PRN ×2 (09:26)
--- NOTE | 2019-10-06 11:41 | PCM.DC ---
Final Diagnoprimary: chest pain HTN mild-moderate COPD exarcerbation LEONA secondary: morbid obesity DANIEL not using CPAP tobacco dependence severe schizophrenia HPI: pt presented to ED with c/o "months" of chest pressure, constipation, and high blood pressure. pt was seen at PCP on the day of admission and advised to go to ED because of his complaint of chest pain. It was learned that pt also had an ECHO the morning prior to admission. Pt received ASA, nitro sublingual, and initial troponin was negative. admitted r/o ACS. Hospital course: pts chest pressure was initially relieved with ntg sl given in ED. after coming to floor pt stated the discomfort was returning. morphine was ordered but pt declined. stated he didn't like the way this medication makes him feel. pt did accept toradol IV x 1 with relief of his chest pressure. Per Dr Newsome pts ECHO reveals LVH and slightly reduced ejection fraction of 50%. He recommends that pt have outpatient dobutamine stress echo next week. Try to schedule for Tuesday10/08/2019. pts blood pressure initially elevated. pt not on any blood pressure medications currently. BP improved significantly after having the nitro. pt will discuss whether he should start on home BP medications with PCP on return visit. pt treated with solumedrol IV x 1, scheduled duonebs and pulmicort nebs (symbicort was held) for his likely COPD exarcerbation. pt hasn't had PFT. pt stated his breathing was much improved. he had no increased work of breathing during his stay and his lung carballo were clear to auscultation. pt would benefit from outpatient PFTs. He will discuss with PCP. pt noted to have mild acute kidney injury with Cr 1.18. after fluids pts Cr 1.04. pt also had elevated glucose after meal. A1c 5.09. pt gives history of DANIEL/CPAP but states he doesn't use CPAP because it is too noisy and it bothers his ill mother for whom he and his sister cares for at home. states machine older than 5 years. advised him that he is eligible for new machine after 5 years and perhaps he can get a quieter one. he will discuss with his PCP on return visit. discussed pts smoking and morbid obesity and relationship to obstructive sleep apnea. he voiced understanding and agrees to try to "cut down" on his cigarettes and his food intake. He feels that some of his psych meds cause him to gain weight. He will discuss with psychiatry on return visit. pt was given magnesium citrate x 1 bottle for his constipation. he is to continue his daily miralax and add daily stool softner drink plenty of water and increase fiber in his diet. he didn't have BM prior to discharge. Pt is felt to be hemodynamically stable for discharge. He has remained afebrile, dyspnea is resolved, chest pressure is resolved, and BP is within acceptable limits. pt will f/u with PCP in next 5 - 7 days; he will schedule outpt PFTs with PCP; we will schedule dobutamine stress echo for early next week with Dr Newsome. He had no new prescriptions or other changes to his home medication regimen. (1) Chest pressure: Status: Acute Code(s): R07.89 - Other chest pain SNOMED Code(s): 589624013 (2) Constipation: Status: Acute Code(s): K59.00 - Constipation, unspecified SNOMED Code(s): 11778676 (3) Essential (primary) hypertension: Status: Chronic Code(s): I10 - Essential (primary) hypertension SNOMED Code(s): 04835524 (4) COPD with exacerbation: Status: Acute Code(s): J44.1 - Chronic obstructive pulmonary disease with (acute) exacerbation SNOMED Code(s): 866989706 (5) Acute kidney injury (nontraumatic): Status: Acute Code(s): N17.9 - Acute kidney failure, unspecified SNOMED Code(s): 685982211825168 (6) Tobacco use disorder, severe, dependence: Status: Acute Code(s): F17.200 - Nicotine dependence, unspecified, uncomplicated SNOMED Code(s): 80626033 (7) Morbid obesity with BMI of 45.0-49.9, adult: Status: Acute Code(s): E66.01 - Morbid (severe) obesity due to excess calories; Z68.42 - Body mass index (BMI) 45.0-49.9, adult SNOMED Code(s): 510561251 Medications at Discharge: Ambulatory Orders Medication Instructions Recorded aspirin 81 mg PO DAILYWM 02/08/14 Multi Vitamin Daily 1 ea PO DAILY 05/01/15 Comp-Air Nebulizer Compressor #1 ea 03/17/16 polyethylene glycol 3350 [Miralax] 17 g PO DAILY #1 powder 03/17/16 hydroxyzine HCl 50 mg PO BID #90 10/28/16 Cogentin 1 mg PO BID #60 01/20/17 trazodone 100 mg PO BEDTIME #30 01/20/17 albuterol sulfate 1 vial INHALATION Q4-6H PRN #100 02/27/18 vial ipratropium bromide 1 vial NEB RTQ6H 90 Days #937 07/26/18 vial.neb escitalopram oxalate [Lexapro] 20 mg PO BEDTIME 10/26/18 vitamin E 400 unit PO DAILY 10/26/18 fluticasone propionate 2 spray NS DAILY #1 spray 12/18/18 haloperidol 10 mg PO BEDTIME 12/18/18 Symbicort 2 puff INHALATION BID #3 ih 04/26/19 montelukast [Singulair] 10 mg PO DAILY #90 tab-cap 04/26/19 paliperidone [Invega] 9 mg PO DAILY 04/26/19 ranitidine HCl [Zantac] 300 mg PO BID #60 tab-cap 04/26/19 rosuvastatin [Crestor] 20 mg PO BEDTIME #90 tab-cap 04/26/19 albuterol sulfate 1 vial NEB RTQ4H PRN 30 Days #120 06/22/19 vial.neb fenofibrate 160 mg tablet 160 mg PO DAILY #30 tab-cap 09/25/19
[2019-10-06] MEDS ORDERED: DESYREL PO SCH (21:00)
[2019-10-06] MEDS ORDERED: NON-FORMULARY MEDICATION PO SCH (21:00)
[2019-10-07] MEDS ORDERED: MULTI VITAMIN DAILY PO SCH (09:00)
[2019-10-07] MEDS ORDERED: FLONASE NAS SCH (09:00)
[2019-10-07] MEDS ORDERED: NON-FORMULARY MEDICATION (Vitamin E 400 UNIT) PO SCH (09:00)
[2019-10-07] MEDS ORDERED: MIRALAX PO SCH (09:00)
== END 2019-10-06 10:35 | disposition home or self-care (01) ==
LOC: ED 10:55 → MEDSURG B 10:55
PROVIDERS: ADMIT Nurse Practitioner Family; ATTEND Nurse Practitioner Family
DX: E78.5 Hyperlipidemia, unspecified; F17.210 Nicotine dependence, cigarettes, uncomplicated; K59.00 Constipation, unspecified; R07.89 Other chest pain; E66.01 Morbid (severe) obesity due to excess calories; I10 Essential (primary) hypertension; J44.1 Chronic obstructive pulmonary disease with (acute) exacerbation; G47.00 Insomnia, unspecified; Z68.42 Body mass index [BMI] 45.0-49.9, adult; N17.9 Acute kidney failure, unspecified; R06.02 Shortness of breath; F20.9 Schizophrenia, unspecified